=== PATIENT | male | born 1955 | race Caucasian/White ===

== ENCOUNTER 2017-02-14 07:13 | Day surgery (SDC) | payer MEDICARE, MEDICAID ==
[2017-02-14 07:52] LABS: HEMOGLOBIN 14.3 g/dL (14.1-18.0); LYMPH # 1.3 K/mm3 (0.7-4.5); LYMPH % 19.2 % (10-50)
[2017-02-14 07:59] LABS: BUN 24 mg/dL (7-18); GFR (ESTIMATED) 75 ML/MIN (>60)
--- NOTE | 2017-02-14 14:35 | RADIOLOGY REPORT PS360 ---
CARDIAC CATHETERIZATION DATE OF CATHETERIZATION:02/14/2017 2:25 PM PROCEDURES: 1. Left heart catheterization 2. Left ventriculogram 3. Selective coronary angiogram 4. FFR to the LAD 5. Drug-eluting stent deployment to the LAD INDICATION FOR TEST: 1. Angina pectoris class III 2. Coronary artery disease 3. Ischemic response to adenosine FFR 0.79 4. Abnormal Myoview Informed consent was obtained prior to the procedure. COMPLICATIONS: None ESTIMATED BLOOD LOSS: Less than 10 ml. TECHNIQUE: One percent lidocaine used to anesthetize the right anterior aspect of the wrist. The right radial artery was accessed via the Seldinger technique. A 6 Sinhala sheath was placed in the right radial artery. 2.5 mg of verapamil, 800 mcg of nitroglycerin and 5000 U Heparin were given through the arterial sheath. A [employer] catheter was used to perform left heart catheterization left ventriculogram and selective coronary angiogram. At the end of the diagnostic angiogram and additional 5000 units of heparin was administered intravenously. An [employer] left guide catheter was placed in the ascending aorta and an FFR wire was normalized. The first ACT was greater than 400. The FFR wire was placed distal to the mid LAD lesion and adenosine was infused which caused the FFR index dropped to 0.79. Because this was an ischemic response to adenosine a 3 mm x 12 mm resolute [place] stent was deployed at 18 alejo reducing the severe stenosis to 0%. ROC-3 flow was present before and after the procedure. After achieving excellent angiographic results the apparatus was removed and good hemostasis was achieved using TR band, patient transferred the postop holding area in stable condition ANGIOGRAPHIC RESULTS: 1. The left main artery normal 2. The left anterior descending artery proximally has mild vascular ectasia with 20% atherosclerotic nonflow limiting plaque. The mid segment has a 50-60% stenosis and a large 3.25 mm diameter vessel 3. The circumflex artery is a codominant vessel and has mild luminal irregularities 4. The ramus intermedius is a large 3 to 3 1/2 mm vessel and has a proximal concentric 40% stenosis 5. The right coronary artery is a codominant vessel and has mild diffuse vascular ectasia and mild luminal irregularities 6. The GILL[place]E ventriculogram reveals normal 65% 7. The left ventricular end-diastolic pressure normal 10 mmHg IMPRESSION: 1. Angiographically indeterminate mid LAD disease which produced a severe ischemic response to adenosine 2. Successful stenting of the mid LAD hemodynamically severe disease reduced to 0% with 1 drug-eluting stent 3. Normal ejection fraction 4. Normal left ventricular end-diastolic pressure PLAN: 1. Continue Effient and aspirin 2. LDL less than 55 3. Cardiac rehabilitation 4. Avoidance of tobacco products 5. Risk factor modification
[2017-02-14 15:46] VITALS: BP 150/88
[2017-02-22] MEDS ORDERED: LISINOPRIL 10MG10 MG PO (18:54)
[2017-02-22] MEDS ORDERED: REMERON15 MG PO (18:55)
[2017-02-22] MEDS ORDERED: LOPRESSOR 25MG.25 MG PO (18:55)
[2017-02-22] MEDS ORDERED: ESCITALOPRAM 2020 MG PO (18:56)
[2017-02-22] MEDS ORDERED: ASPIRIN 81MG TA81 MG PO (18:56)
[2017-02-22] MEDS ORDERED: LIPITOR20 MG PO (18:57)
[2017-02-22] MEDS ORDERED: EFFIENT10 M2 PO (18:59)
== END 2017-02-14 15:44 | disposition home or self-care (01) ==
LOC: CATHLAB 07:13
PROVIDERS: Internal Medicine
PROC: 027034Z Dilation of Coronary Artery, One Artery with Drug-eluting Intraluminal Device, Percutaneous Approach (ICD-10-PCS; 2017-02-14)
PROC: B2111ZZ Fluoroscopy of Multiple Coronary Arteries using Low Osmolar Contrast (ICD-10-PCS; 2017-02-14)
PROC: B2151ZZ Fluoroscopy of Left Heart using Low Osmolar Contrast (ICD-10-PCS; 2017-02-14)
PROC: 4A033BC Measurement of Arterial Pressure, Coronary, Percutaneous Approach (ICD-10-PCS; 2017-02-14)
PROC: 4A023N7 Measurement of Cardiac Sampling and Pressure, Left Heart, Percutaneous Approach (ICD-10-PCS; principal; 2017-02-14 08:30)
DX: I25.119 Atherosclerotic heart disease of native coronary artery with unspecified angina pectoris (principal); Z72.0 Tobacco use; R94.39 Abnormal result of other cardiovascular function study; I10 Essential (primary) hypertension; Z95.0 Presence of cardiac pacemaker
CPT/HCPCS: C1725; C1769; C1876; J0153; J1644; Q9967

== ENCOUNTER 2017-03-05 19:44 | Emergency (ER) | payer MEDICARE, MEDICAID ==
[~2017-03-05] VITALS: Ht 175.3 cm; Wt 95.3 kg
[~2017-03-05 19:44] MED LIST: ASPIRIN 81MG TA81 MG PO; EFFIENT10 M2 PO; ESCITALOPRAM 2020 MG PO; LIPITOR20 MG PO; LISINOPRIL 10MG10 MG PO; LOPRESSOR 25MG.25 MG PO; REMERON15 MG PO
[2017-03-05 20:35] LABS: LYMPH # 1.6 K/mm3 (0.7-4.5)
--- NOTE | 2017-03-05 22:34 | Emergency Room Report ---
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 N Clinical Suspician of Infection? N Mental Status: 1 - Regular (Normal Baseline) Sepsis Risk:Low Sepsis Risk Have you (or family members/close friends) recently traveled outside the [place]? N If Yes, where/when: Have you had exposure to infectious disease within the past month? N TB? Other? Specify: Comment The patient is sent from [facility] by ambulance. He states that the reason he initially came in was that he was upset. However he says he was not angry and did not want to hurt himself or others. He says he is on medications for his anxiety as well as his blood pressure. He says he is compliant. He denies any pain and says that he did not have any pain when he came in, although initial history by nurse indicated headache. He denies this now. He says his current main complaint is feeling dizzy, which she says started after he arrived here. His blood pressure is elevated here, he says his blood pressure normally runs a little high, and he has a history of hypertension, but it does not run as high as it is here. He denies chest pain or shortness of breath. He describes his dizziness as "wooziness". He states his anxiety has improved. ALLERGIES Coded Allergies: No Known Allergies (01/28/17) Home Medications Reported Medications LISINOPRIL (Lisinopril) 10 MG PO DAILY Metoprolol Tartrate (Lopressor) 12.5 MG PO BID Mirtazapine (Remeron) 15 MG PO QHS Escitalopram Oxalate (Escitalopram 20MG) 20 MG PO DAILY ASPIRIN (Aspirin) 81 MG PO DAILY Atorvastatin Calcium (Lipitor 20MG) 40 MG PO DAILY Prasugrel HCl (Effient) 10 MG PO DAILY History Medical History General CAD? Yes Angina: Yes RI: No Hypertension? Yes Hyperlipidemia? No CHF? No DVT? No PE? No COPD? No Asthma? No Anemia? No GERD? No Gastric ulcers? No GI Bleed? No Hernia? No Thyroid Problems? No Hypothyroidism? No CVA? No Seizures? No Diabetes? No Renal Insuffiency? No End Stage Renal Disease? No UTI? No Stones? No BPH? No GB Disease: No Nephritic Syndrome? No Hepatitis? No Sickle Cell Disease? No Arthritis? No Migraines? No Cataracts? No Glaucoma? No MRSA? No HIV? No TB? No Anxiety? Yes Depression? No Cancer? No More? Yes Additional hx: ADJUSTMENT DISOERDER Immunization Hx DT/Tetanus Unknown Flu Refused Pneumonia Received In Past Surgical Hx Previous Surgery?Y ABLATION PACEMAKER CARDIAC CATH X1 STENT Family History Family Hx Diabetes No CAD No Hypertension No Hyperlipidemia No Cancer No TB No Social History Smoking Hx Smoker: Former Smoker Tobacco: No Alcohol Alcohol: No Review of Systems All Other Systems Reviewed and Negative Constitutional denies fever Respiratory denies shortness of breath Cardiovascular denies chest pain Gastrointestinal denies abdominal pain, denies vomiting Musculoskeletal denies back pain, denies neck pain Psychiatric/Neurological see HPI, anxiety Physical Exam Vital Signs Vital Signs Date Time Temp Pulse Resp B/P Pulse O2 O2 Flow FiO2 Ox Delivery Rate 03/06 0100 97.5 60 18 147/97 97 03/06 0037 62 18 143/88 98 03/05 2333 60 16 159/110 98 03/05 2251 97.5 63 20 189/113 99 03/058 97.5 62 20 159/107 99 03/05 2023 57 16 170/113 99 03/05 1945 97.6 57 20 152/108 98 General Appearance normal appearance, WD/WN Eye Exam - bilateral eye normal exam, bilateral eye PERRL, bilateral eye EOMI Ear, Nose, Throat hearing grossly normal, normal ENT inspection Neck normal inspection, non-tender, supple, full range of motion Respiratory Status Yes: trachea midline, chest symmetrical, non tender chest. No: respiratory distress. Lung Sounds bilateral: normal breath sounds, lungs clear. 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 Mental status normal mood/affect Skin intact, normal color, warm/dry Medical Decision Making LABS/Meds/Orders Pt receiving controlled substance in ED? No Results/Orders Laboratory Tests 03/05/172009: Creatine Kinase 156, CK-MB (CK-2) Rel Index 0.8, CK and CKMB Interp 1.2, Troponin I < 0.02 03/05/172009: Sodium 133 L, Potassium 4.3, Chloride 104, Carbon Dioxide 32, BUN 22 H, Creatinine 1.1, Estimated Creat Clear 91, Estimated GFR (MDRD) 67, Glucose 93, Calcium 8.9, Total Bilirubin 0.3, AST 21, ALT 46, Alkaline Phosphatase 82, Total Protein 7.1, Albumin 3.4, Globulin 3.7 H, Albumin/Globulin Ratio 0.9 L, WBC 6.0, RBC 4.16 L, Hgb 13.0 L, Hct 40.5 L, MCV 97.3, RDW 12.7, Plt Count 189, MPV 7.6, Gran % 62.8, Gran # 3.7, Lymphocytes % 27.0, Monocytes % 6.0, Eosinophils % 4.2, Basophils % 0.0 L, Lymphocytes # 1.6, Monocytes # 0.4, Eosinophils # 0.3, Basophils # 0.0, PUBS MCHC 32.0, MCH 31.1 Current Medication Orders Sig/Antonio Start time Last Medication Dose Route Stop Time Status Admin Clonidine HCl 0 .STK-MED ONE 03/05 2247 DC .ROUTE Clonidine HCl 0.2 MG ONCE ONE 03/05 2245 DC 03/05 PO 03/05 Sodium Chloride 10 ML PRN PRN 03/05 2000 DCD IV 03/06 1953 Orders Procedure Date/time Status DIET-NOTHING BY MOUTH 03/06 B Active TROPONIN I 03/[address] HEAD W/O CONTRAST 03/05 2247 Active ELECTROCARDIOGRAM REQUEST 03/[address] HEAD REQ 03/05 2240 Complete CARDIAC ENZYMES 03/05 2240 Complete IV SALINE LOCK 03/05 1953 Active CBC WITH AUTO DIFF 03/05 1953 Complete CHEM 12 PROFILE 03/05 1953 Complete 12 LEAD EKG-ANGELA (INITIAL) 03/05 UNK Active CM/EKG CM/EKG Comments EKG interpreted by Mao Lemus MD: Rhythm: Electronic atrial pacemaker Rate: 63 Talent: normal Ectopy: none Conduction: normal ST Segment Changes: none T Wave Changes: none Q Waves: none No evidence of acute ischemia or injury Baseline artifact and wander present, but I consider the EKG adequate for accurate interpretation. XRAY/CT/US XRAY/CT/US CT head Comment CT scan interpreted by [facility] radiologist. Faxed report received and reviewed: Negative Progress - 12:50 AM: Patient states he feels better. Blood pressure is 140s over 90s. I feel he can be discharged. Departure Departure Disposition DC Home or Self Care(routine) Clinical Impression Primary Impression: Dizziness Secondary Impressions: Anxiety state Hypertension Qualifiers: Hypertension type: essential hypertension Qualified Code: I10 - Essential (primary) hypertension Condition STABLE Referrals Daily ROSAS,Gabriel Segal (Family) Patient Instructions DI for Anxiety -- Adult, DI for Dizziness-Nonvertigo, DI for High Blood Pressure Additional Instructions Call your primary care physician tomorrow to arrange follow-up appointment. Return for any worsening. ED Critical Care Critical Care No at 0150
[2017-03-06 01:00] VITALS: BP 147/97
--- NOTE | 2017-03-06 07:34 | RADIOLOGY REPORT PS360 ---
CT HEAD W/O CONTRAST COMPARISON: None HISTORY: Dizziness TECHNIQUE: Multiaxial scans obtained from base skull to the vertex and were performed without IV contrast. FINDINGS: The base of skull appears normal. The mastoids are clear and both internal auditory canals appear normal. Ventricular system is normal. The sylvian fissures are prominent and cortical sulci are mildly prominent especially over the frontal lobes. There is no ischemic infarct or bleed and there are no extra-axial fluid collections. Bony calvarium appears intact. IMPRESSION: Findings of age appropriate cortical atrophy, no acute intracranial pathology noted, agree with the [facility] report
--- OUTSIDE RECORDS SUMMARY | 2017-03-08 17:53 | External Medical Summary Rpt ---
Author Author , ELSY CHIN Address Unknown Phone [email or web address] Care Team Providers Care Certified Medical Aide Name Role Phone RHONDA ELLIS Unavailable Unavailable YOUNGER BALDEMAR, YOUNGER BALDEMAR Unavailable Unavailable [facility] Unavailable Unavailable ASSOC, [facility] BUSLER CAR, BUSLER Unavailable Unavailable CAR [facility] Unavailable Unavailable SPECIALIS, [facility] EUNICE KIMBERLEY, EUNICE Unavailable Unavailable KIMBERLEY YAZ MARYELLEN, YAZ Unavailable Unavailable MARYELLEN YODIT KISHORE, Unavailable Unavailable YODIT KISHORE [facility] Unavailable Unavailable [facility], [facility] Unavailable Unavailable [facility], [facility] KILLIAN ALYSSA, KILLIAN ALYSSA Unavailable Unavailable DUVALL II DENNISE, DUVALL Unavailable Unavailable II DENNISE [facility], Unavailable Unavailable [facility], [facility] Unavailable Unavailable ASSOCIATE, [facility] CARBONIZER STACEY ANTIONE, STACEY Unavailable Unavailable [facility] Unavailable Unavailable [facility], [facility] GONG GRE, GONG Unavailable Unavailable GRE TIMI COR, TIMI [facility] Unavailable Unavailable SKEENS MAIKOL, SKEENS Unavailable Unavailable [facility], Unavailable Unavailable [facility] [place] Unavailable Un[facility], [facility] WOODY II JAM, WOODY Unavailable Unavailable II JAM MEEKS CHARLIE, Unavailable Unavailable MEEKS CHARLIE MEEKS CHARLIE, Unavailable Unavailable MEEKS CHARLIE Purpose Continuity of Care Document - 05-11-2013 through 2016 Problems Code Diagnosis DOS Provider Status I10 ESSENTIAL 12-20-2016 [facility] HYPERT[facility] N 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 Z950 PRESENCE OF 12-20-2016 [facility] PACEMAKER INC 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[facility] 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 M150 PRIMARY 10-04-2016 [facility] GENERALIZED OSTEOARTHRI TIS M2011 HALLUX 09-06-2016 MEEKS VALGUS CHARLIE ACQUIRED RIGHT FOOT M2012 HALLUX 04-10-2016 MEEKS VALGUS CHARLIE ACQUIRED LEFT FOOT M2041 OTHER 04-10-2016 MEEKS HAMMER TOES CHARLIE ACQUIRED RIGHT FOOT M2042 OTHER 04-10-2016 MEEKS HAMMER TOES CHARLIE ACQUIRED LEFT FOOT M2170 UNEQUAL 04-10-2016 MEEKS LIMB LENGTH CHARLIE ACQUIRED UNSPECIFIED SITE K921 MELENA 02-09-2016 [facility] N390 URINARY 02-09-2016 [facility] INFECTION SITE NOT SPECIFIED 03477 PAIN IN 02-17-2015 [facility]INT[facility] 2724 OTHER AND 01-23-2015 [facility] UNSPECIFIED [facility] HYPERLIPIDE HOS CHRISTOPHER 4019 UNSPECIFIED 01-23-2015 [facility] ESSENTIAL [place] HYPERTENSIO REGIONAL N HOS 23983 CORONARY 01-23-2015 [facility] ATHEROSCLER [place] REGIONAL CORONARY HOS ARTERY 04534 CLOSED 01-23-2015 [facility] DISLOCATION [place] OF REGIONAL SHOULDER HOS UNSPECIFIED SITE 51705 CLOSED 01-23-2015 [facility]Y DISLOCATION SERVI OF HUMERUS E8888 OTHER FALL 01-23-2015 [facility] N EMERGENCY SERVI V4501 CARDIAC 01-23-2015 [facility] PACEMAKER [facility] IN SITU REGIONAL HOS V4589 OTHER 01-23-2015 [facility] POSTSURGICA [place] L STATUS REGIONAL OTHER HOS V5866 LONG-TERM 01-23-2015 [facility] USE OF [place] REGIONAL HOS V5869 LONG-TERM 01-23-2015 [facility] (CURRENT) [place] USE OF REGIONAL OTHER HOS MEDICATIONS 4589 UNSPECIFIED 12-27-2014 [facility] HYPOTENSION 35466 OTHER 12-27-2014 [facility] FATIGUE 22764 DEHYDRATION 04-01-2014 [facility] 7962 ELEVATED BP 04-01-2014 [facility] & WITHOUT DX INTER[facility]I HYPERTENSIO N 9222 CONTUSION 06-06-2013 [facility] WALL V6709 FOLLOW-UP 06-06-2013 [facility] EXAMINATION RADIOLOGY FOLLOWING ASSOC OTHER SURGERY 9961 MECH COMP 06-03-2013 [facility] OT RADIOLOGY VASCULAR ASS[place] DEVICE IMPLANT&[place] [address] HEMATOMA 06-03-2013 [facility]IN [facility] PROCEDURE HOS NEC 16329 CHEST PAIN 06-01-2013 CARDIO AND UNSPECIFIED ELECTRO SPECIALIS 14929 ACUT IA 05-31-2013 [facility] SUBENDOCARD [place] IAL INFARCT REGIONAL INIT EPIS HOS CARE 7850 UNSPECIFIED 05-31-2013 [facility] RADI[facility] TACHYCARDIA ASSOC V169 FAMILY 05-31-2013 [facility] HISTORY OF [place] UNSPECIFIED REGIONAL MALIGNANT HOS NEOPLASM V173 FAMILY 05-31-2013 [facility] HISTORY OF [place] ISCHEMIC REGIONAL HEART HOS DISEASE 09190 ACUTE 05-30-2013 [facility] INFARCT SPITALIS UNSPEC SITE INIT EPIS CARE 4011 ESSENTIAL 05-11-2013 [facility] HYPERTENSIO MEDICAL N, BENIGN ASSOCIATE F41.1 GENERALIZED ANXIETY DISORDER F43.20 ADJUSTMENT DISORDER, UNSPECIFIED I10 ESSENTIAL (PRIMARY) HYPERTENSIO N R42 DIZZINESS AND GIDDINESS R94.31 ABNORMAL ELECTROCARD IOGRAM [ECG] [EKG] Results Labs Lab Lab Date Result Refere Interp Status Commen Order Detail nces retati t Range on Drugs identified in Urine by Screen method (02-22-2016 13:38) Comment: er 3 Comment: Supervi 12 - complet sor 016 2016 ed review 13:38 positiv of e results Supervi [id number] complet sor 016 297 ed review 13:38 positiv of e results Supervi [id number] complet sor 016 4 ed review 13:38 POSITIV of E SCT results positiv e Methado [id number] complet ne 016 09 ed cutoff 13:38 NEGATIV [Mass/v E SCT olume] NEGATIV in E Urine for Screen method Barbitu [id number] complet rates 016 09 ed cutoff 13:38 NEGATIV [Mass/v E SCT olume] NEGATIV in E Urine for Screen method Tricycl [id number] complet ic 016 09 ed antidep 13:38 NEGATIV ressant E SCT s NEGATIV tested E for in Urine by Screen method Nominal Benzodi [id number] complet azepine 016 09 ed s 13:38 NEGATIV cutoff E SCT [Mass/v NEGATIV olume] E in Urine for Screen method Phencyc [id number] complet lidine 016 09 ed [Presen 13:38 NEGATIV ce] in E SCT Urine NEGATIV by E Screen method Opiates [id number] complet tested 016 09 ed for in 13:38 NEGATIV Urine E SCT by NEGATIV Screen E method Nominal Methamp [id number] complet hetamin 016 09 ed e 13:38 NEGATIV cutoff E SCT [Mass/v NEGATIV olume] E in Urine for Screen method Tetrahy [id number] complet drocann 016 09 ed abinol 13:38 NEGATIV [Presen E SCT ce] in NEGATIV Urine E by Screen method Cocaine [id number] complet cutoff 016 09 ed 13:38 NEGATIV [Mass/v E SCT olume] NEGATIV in E Urine for Screen method Ampheta [id number] complet mine 016 09 ed cutoff 13:38 NEGATIV [Mass/v E SCT olume] NEGATIV in E Urine for Screen method Urinalysis complete W Reflex Culture panel - Urine (02-22-2016 13:38) Comment: er 3 duvall Comment: Clarity CLEAR complet of 016 EU/DL ed Urine 13:38 Color YELLOW complet of 016 EU/DL ed Urine 13:38 Urobili = 2.0 0.0 TO complet nogen 016 EU/DL 0.2 ed [Mass/v 13:38 olume] in Urine by Test strip Leukocy NEGATIV complet te 016 E ed esteras 13:38 e [Presen ce] in Urine by Test strip Hemoglo NEGATIV complet bin 016 E ed [Presen 13:38 ce] in Urine by Test strip Bilirub 1 + complet in.tota 016 ed l 13:38 [Presen ce] in Urine by Test strip Glucose NEGATIV complet 016 E ed [Presen 13:38 ce] in Urine Nitrite NEGATIV complet 016 E ed [Presen 13:38 ce] in Urine by Test strip Ketones NEGATIV complet 016 E ed [Presen 13:38 ce] in Urine by Test strip Protein NEGATIV complet 016 E ed [Presen 13:38 ce] in Urine by Test strip pH of = 6.0 4.6 TO complet Urine 016 8.0 ed by Test 13:38 strip Specifi = 1.025 1.005 complet c 016 TO ed gravity 13:38 1.030 of Urine Salicylates [Mass/volume] in Blood (02-22-2016 13:15) Comment: er 3 duvall Comment: Salicyl < 1.0 2.0 TO complet ates 016 mg/dL 20.0 ed [Mass/v 13:15 olume] in Blood Folate [Mass/volume] in Serum or Plasma (02-22-2016 13:15) Comment: er 3 duvall Comment: Folate = 9.78 2.76 TO complet [Mass/v 016 ng/mL 20.00 ed olume] 13:15 in Serum or Plasma Cobalamin (Vitamin B12) [Mass or Moles/volume] in Serum (02-22-2016 13:15) Comment: er 3 duvall Comment: Cobalam = 308 239 TO complet in 016 pg/mL 931 ed (Vitami 13:15 n B12) [Mass or Moles/v olume] in Serum Thyrotropin [Mass/volume] in Serum or Plasma (02-22-2016 13:15) Comment: er 3 duvall Comment: Thyrotr = 1.26 0.465 complet opin 016 uIU/mL TO ed [Mass/v 13:15 4.680 olume] in Serum or Plasma Comprehensive metabolic 2000 panel - Serum or Plasma (02-22-2016 13:15) Comment: er 3 duvall Comment: Calcula = 1.2 1.1 TO complet adina and 016 g/dL 2.5 ed 13:15 derived values (set) Anion = 9.1 8.0 TO complet gap in 016 mmol/L 16.0 ed Serum 13:15 or Plasma Alanine = 31 21 TO complet 016 U/L 72 ed aminotr 13:15 ansfera se [Enzyma tic activit y/volum e] in Serum or Plasma Asparta = 16 17 TO complet te 016 U/L 59 ed aminotr 13:15 ansfera se [Enzyma tic activit y/volum e] in Serum or Plasma Calcula = 70 complet adina and 016 mg/dL ed 13:15 derived values (set) Creatin = 1.12 0.66 TO complet ine 016 mg/dL 1.25 ed [Mass/v 13:15 olume] in Blood Carbon = 27 22 TO complet dioxide 016 mmol/L 30 ed , total 13:15 [Moles/ volume] in Blood Chlorid = 106 98 TO complet e 016 mmol/L 107 ed [Moles/ 13:15 volume] in Serum or Plasma Sodium = 3.7 3.4 TO complet and 016 mmol/L 5.0 ed Potassi 13:15 um panel [Moles/ volume] - Serum or Plasma Sodium = 142 137 TO complet and 016 mmol/L 145 ed Potassi 13:15 um panel [Moles/ volume] - Serum or Plasma Alkalin = 75 38 TO complet e 016 U/L 126 ed phospha 13:15 tase [Enzyma tic activit y/volum e] in Serum or Plasma Bilirub = 0.8 0.2 TO complet in 016 mg/dL 1.3 ed direct 13:15 and total panel [Mass/v olume] - Serum or Plasma Albumin = 3.7 3.5 TO complet 016 g/dL 5.0 ed [Mass/v 13:15 olume] in Serum or Plasma Protein = 6.8 6.3 TO complet 016 g/dL 8.2 ed [Mass/v 13:15 olume] in Serum or Plasma Urea = 15 9 TO 20 complet nitroge 016 mg/dL ed n 13:15 [Mass/v olume] in Blood Glucose = 91 74 TO complet 016 mg/dL 106 ed [Mass/v 13:15 olume] in Serum or Plasma Calcium = 8.8 8.4 TO complet 016 mg/dL 10.2 ed [Mass/v 13:15 olume] correct ed for total protein in Serum or Plasma Troponin I.cardiac [Mass/volume] in Serum or Plasma (02-22-2016 13:15) Comment: er 3 duvall Comment: Troponi < 0.012 0 TO complet n 016 ng/ml 0.033 ed I.cardi 13:15 ac [Mass/v olume] in Serum or Plasma Ethanol [Mass/volume] in Blood (02-22-2016 13:15) Comment: er 3 duvall Comment: Ethanol < 10 0 TO 10 complet 016 mg/dL ed [Mass/v 13:15 olume] in Blood Acetaminophen [Mass/volume] in Blood (02-22-2016 13:15) Comment: er 3 duvall Comment: Acetami < 10 10 TO complet nophen 016 ug/mL 30 ed [Mass/v 13:15 olume] in Blood CBC W Reflex Manual Differential panel - Blood (02-22-2016 13:15) Comment: er 3 duvall Comment: CBC W = 10.6 7.1 TO complet Auto 016 fl 10.4 ed Differe 13:15 ntial panel - Blood Erythro = 13.2 11.5 TO complet cyte 016 % 14.5 ed distrib 13:15 ution width [Ratio] by Automat ed count Erythro = 46.2 35.1 TO complet cyte 016 fL 43.9 ed distrib 13:15 ution width [Ratio] by Automat ed count CBC W = 33.3 33 TO complet Auto 016 g/dl 37 ed Differe 13:15 ntial panel - Blood CBC W = 31.5 27 TO complet Auto 016 pg 31 ed Differe 13:15 ntial panel - Blood CBC W = 94.6 80 TO complet Auto 016 fl 94 ed Differe 13:15 ntial panel - Blood Hematoc = 42.3 42 TO complet rit 016 % 52 ed [Volume 13:15 Fractio n] of Blood by Automat ed count Hemoglo = 14.1 14 TO complet bin 016 G/DL 18 ed A/Hemog 13:15 lobin.t otal in Blood Erythro = 4.47 4.70 TO complet cytes 016 10*6UL 6.10 ed [#/volu 13:15 me] in Blood Nucleat = 0.00 0.0 TO complet ed 016 10*3 0.012 ed erythro 13:15 cytes [#/volu me] in Blood by Automat ed count Granulo = 0.02 0.01 TO complet cytes 016 10*3 0.02 ed Immatur 13:15 e [#/volu me] in Blood by Automat ed count Basophi = 0.01 0.0 TO complet ls 016 10*3 0.1 ed [#/volu 13:15 me] in Blood by Automat ed count Eosinop = 0.13 0.0 TO complet hils 016 10*3 0.2 ed [#/volu 13:15 me] in Blood by Automat ed count Monocyt = 0.51 0.3 TO complet es 016 10*3 0.8 ed [#/volu 13:15 me] in Blood by Automat ed count Lymphoc = 1.08 1.3 TO complet ytes 016 10*3 2.9 ed [#/volu 13:15 me] in Blood by Automat ed count Neutrop = 4.95 2.2 TO complet hils 016 10*3 4.8 ed [#/volu 13:15 me] in Blood by Automat ed count Complet = 0.0 % 0 TO complet e blood 016 0.2 ed count 13:15 (hemogr am) panel - Blood by Automat ed count Granulo = 0.3 % 0 TO complet cytes 016 0.5 ed Immatur 13:15 e/100 leukocy tracey in Blood by Automat ed count Basophi = 0.1 % 0.2 TO complet ls/Leuk 016 1.0 ed ocytes 13:15 [Pure number fractio n] in Blood by Automat ed count Eosinop = 1.9 % 0.9 TO complet hils/10 016 2.9 ed 0 13:15 leukocy tracey in Blood Monocyt = 7.6 % 5.5 TO complet es/100 016 11.7 ed leukocy 13:15 tracey in Blood by Automat ed count Lymphoc = 16.1 20.5 TO complet ytes/10 016 % 45.5 ed 0 13:15 leukocy tracey in Blood by Automat ed count Neutrop = 74.0 43 TO complet hils/10 016 % 65 ed 0 13:15 leukocy tracey in Blood by Automat ed count Leukocy = 6.70 4.7 TO complet tracey 016 10*3/UL 10.8 ed [#/volu 13:15 me] in Blood Platele = 207 130 TO complet ts 016 10*3/ul 450 ed [#/volu 13:15 me] in Blood by Automat ed count Comprehensive metabolic 2000 panel - Serum or Plasma (02-09-2016 06:09) Comment: er-tr enedelia Comment: Anion = 13.8 8.0 TO complet gap in 016 mmol/L 16.0 ed Serum 06:09 or Plasma Alanine = 31 21 TO complet 016 U/L 72 ed aminotr 06:09 ansfera se [Enzyma tic activit y/volum e] in Serum or Plasma Asparta = 23 17 TO complet te 016 U/L 59 ed aminotr 06:09 ansfera se [Enzyma tic activit y/volum e] in Serum or Plasma Calcula = 68 complet adina and 016 mg/dL ed 06:09 derived values (set) Creatin = 1.15 0.66 TO complet ine 016 mg/dL 1.25 ed [Mass/v 06:09 olume] in Blood Carbon = 24 22 TO complet dioxide 016 mmol/L 30 ed , total 06:09 [Moles/ volume] in Blood Chlorid = 105 98 TO complet e 016 mmol/L 107 ed [Moles/ 06:09 volume] in Serum or Plasma Sodium = 4.5 3.4 TO complet and 016 mmol/L 5.0 ed Potassi 06:09 um panel [Moles/ volume] - Serum or Plasma Sodium = 143 137 TO complet and 016 mmol/L 145 ed Potassi 06:09 um panel [Moles/ volume] - Serum or Plasma Alkalin = 71 38 TO complet e 016 U/L 126 ed phospha 06:09 tase [Enzyma tic activit y/volum e] in Serum or Plasma Bilirub = 0.8 0.2 TO complet in 016 mg/dL 1.3 ed direct 06:09 and total panel [Mass/v olume] - Serum or Plasma Albumin = 4.4 3.5 TO complet 016 g/dL 5.0 ed [Mass/v 06:09 olume] in Serum or Plasma Protein = 7.9 6.3 TO complet 016 g/dL 8.2 ed [Mass/v 06:09 olume] in Serum or Plasma Urea = 19 9 TO 20 complet nitroge 016 mg/dL ed n 06:09 [Mass/v olume] in Blood Glucose = 98 74 TO complet 016 mg/dL 106 ed [Mass/v 06:09 olume] in Serum or Plasma Calcium = 9.4 8.4 TO complet 016 mg/dL 10.2 ed [Mass/v 06:09 olume] correct ed for total protein in Serum or Plasma Calcula = 1.3 1.1 TO complet adina and 016 g/dL 2.5 ed 06:09 derived values (set) Hemoglobin.gastrointestinal [Presence] in Stool (02-09-2016 06:09) Comment: ercarole mcdaniels Comment: Supervi [id number] complet sor 016 4 ed review 06:09 of results Supervi complet sor 016 ed review 06:09 of results Supervi [id number] POSITIV complet sor 016 4 E ed review 06:09 POSITIV of E SCT results Hemoglo [id number] NEGATIV complet bin.gas 016 4 E ed trointe 06:09 POSITIV stinal E SCT [Presen ce] in Stool Urinalysis complete W Reflex Culture panel - Urine (02-09-2016 06:09) Comment: ercarole mcdaniels Comment: Microsc 0 - 2 2 TO 4 complet opic 016 /lpf ed observa 06:09 tion [Identi fier] in Urine sedimen t by Light microsc opy Comment: C\T\S TO FOLLOW Microsc 5 - 10 0 TO 4 complet opic 016 /HPF ed observa 06:09 tion [Identi fier] in Urine sedimen t by Light microsc opy Clarity HAZY complet of 016 EU/DL ed Urine 06:09 Color YELLOW complet of 016 EU/DL ed Urine 06:09 Urobili = 1.0 0.0 TO complet nogen 016 EU/DL 0.2 ed [Mass/v 06:09 olume] in Urine by Test strip Leukocy TRACE complet te 016 ed esteras 06:09 e [Presen ce] in Urine by Test strip Hemoglo NEGATIV complet bin 016 E ed [Presen 06:09 ce] in Urine by Test strip Bilirub NEGATIV complet in.tota 016 E ed l 06:09 [Presen ce] in Urine by Test strip Specifi >= 1.005 complet c 016 1.030 TO ed gravity 06:09 1.030 of Urine Glucose NEGATIV complet 016 E ed [Presen 06:09 ce] in Urine Nitrite NEGATIV complet 016 E ed [Presen 06:09 ce] in Urine by Test strip Ketones NEGATIV complet 016 E ed [Presen 06:09 ce] in Urine by Test strip Protein TRACE complet 016 ed [Presen 06:09 ce] in Urine by Test strip pH of = 6.0 4.6 TO complet Urine 016 8.0 ed by Test 06:09 strip CBC W Reflex Manual Differential panel - Blood (02-09-2016 06:09) Comment: er-tr enedelia Comment: CBC W = 10.4 7.1 TO complet Auto 016 fl 10.4 ed Differe 06:09 ntial panel - Blood Platele = 208 130 TO complet ts 016 10*3/ul 450 ed [#/volu 06:09 me] in Blood by Automat ed count Erythro = 13.5 11.5 TO complet cyte 016 % 14.5 ed distrib 06:09 ution width [Ratio] by Automat ed count Erythro = 47.4 35.1 TO complet cyte 016 fL 43.9 ed distrib 06:09 ution width [Ratio] by Automat ed count CBC W = 33.7 33 TO complet Auto 016 g/dl 37 ed Differe 06:09 ntial panel - Blood CBC W = 31.9 27 TO complet Auto 016 pg 31 ed Differe 06:09 ntial panel - Blood CBC W = 94.6 80 TO complet Auto 016 fl 94 ed Differe 06:09 ntial panel - Blood Hematoc = 46.9 42 TO complet rit 016 % 52 ed [Volume 06:09 Fractio n] of Blood by Automat ed count Hemoglo = 15.8 14 TO complet bin 016 G/DL 18 ed A/Hemog 06:09 lobin.t otal in Blood Erythro = 4.96 4.70 TO complet cytes 016 10*6UL 6.10 ed [#/volu 06:09 me] in Blood Nucleat = 0.00 0.0 TO complet ed 016 10*3 0.012 ed erythro 06:09 cytes [#/volu me] in Blood by Automat ed count Granulo = 0.04 0.01 TO complet cytes 016 10*3 0.02 ed Immatur 06:09 e [#/volu me] in Blood by Automat ed count Basophi = 0.03 0.0 TO complet ls 016 10*3 0.1 ed [#/volu 06:09 me] in Blood by Automat ed count Eosinop = 0.35 0.0 TO complet hils 016 10*3 0.2 ed [#/volu 06:09 me] in Blood by Automat ed count Monocyt = 0.72 0.3 TO complet es 016 10*3 0.8 ed [#/volu 06:09 me] in Blood by Automat ed count Lymphoc = 2.29 1.3 TO complet ytes 016 10*3 2.9 ed [#/volu 06:09 me] in Blood by Automat ed count Neutrop = 6.06 2.2 TO complet hils 016 10*3 4.8 ed [#/volu 06:09 me] in Blood by Automat ed count Complet = 0.0 % 0 TO complet e blood 016 0.2 ed count 06:09 (hemogr am) panel - Blood by Automat ed count Granulo = 0.4 % 0 TO complet cytes 016 0.5 ed Immatur 06:09 e/100 leukocy tracey in Blood by Automat ed count Basophi = 0.3 % 0.2 TO complet ls/Leuk 016 1.0 ed ocytes 06:09 [Pure number fractio n] in Blood by Automat ed count Eosinop = 3.7 % 0.9 TO complet hils/10 016 2.9 ed 0 06:09 leukocy tracey in Blood Monocyt = 7.6 % 5.5 TO complet es/100 016 11.7 ed leukocy 06:09 tracey in Blood by Automat ed count Lymphoc = 24.1 20.5 TO complet ytes/10 016 % 45.5 ed 0 06:09 leukocy tracey in Blood by Automat ed count Neutrop = 63.9 43 TO complet hils/10 016 % 65 ed 0 06:09 leukocy tracey in Blood by Automat ed count Leukocy = 9.49 4.7 TO complet tracey 016 10*3/UL 10.8 ed [#/volu 06:09 me] in Blood Troponin I.cardiac [Mass/volume] in Serum or Plasma (01-27-2016 08:25) Comment: er tx nfd Comment: Troponi < 0.012 0 TO complet n 016 ng/ml 0.033 ed I.cardi 08:25 ac [Mass/v olume] in Serum or Plasma Comprehensive metabolic 2000 panel - Serum or Plasma (01-27-2016 08:25) Comment: er tx nfd Comment: Calcula = 1.3 1.1 TO complet adina and 016 g/dL 2.5 ed 08:25 derived values (set) Anion = 10.4 8.0 TO complet gap in 016 mmol/L 16.0 ed Serum 08:25 or Plasma Alanine = 16 21 TO complet 016 U/L 72 ed aminotr 08:25 ansfera se [Enzyma tic activit y/volum e] in Serum or Plasma Asparta = 21 17 TO complet te 016 U/L 59 ed aminotr 08:25 ansfera se [Enzyma tic activit y/volum e] in Serum or Plasma Calcula = 75 complet adina and 016 mg/dL ed 08:25 derived values (set) Creatin = 1.06 0.66 TO complet ine 016 mg/dL 1.25 ed [Mass/v 08:25 olume] in Blood Carbon = 30 22 TO complet dioxide 016 mmol/L 30 ed , total 08:25 [Moles/ volume] in Blood Chlorid = 104 98 TO complet e 016 mmol/L 107 ed [Moles/ 08:25 volume] in Serum or Plasma Sodium = 4.3 3.4 TO complet and 016 mmol/L 5.0 ed Potassi 08:25 um panel [Moles/ volume] - Serum or Plasma Sodium = 144 137 TO complet and 016 mmol/L 145 ed Potassi 08:25 um panel [Moles/ volume] - Serum or Plasma Alkalin = 75 38 TO complet e 016 U/L 126 ed phospha 08:25 tase [Enzyma tic activit y/volum e] in Serum or Plasma Bilirub = 0.9 0.2 TO complet in 016 mg/dL 1.3 ed direct 08:25 and total panel [Mass/v olume] - Serum or Plasma Albumin = 4.4 3.5 TO complet 016 g/dL 5.0 ed [Mass/v 08:25 olume] in Serum or Plasma Protein = 7.8 6.3 TO complet 016 g/dL 8.2 ed [Mass/v 08:25 olume] in Serum or Plasma Urea = 16 9 TO 20 complet nitroge 016 mg/dL ed n 08:25 [Mass/v olume] in Blood Glucose = 104 74 TO complet 016 mg/dL 106 ed [Mass/v 08:25 olume] in Serum or Plasma Calcium = 9.4 8.4 TO complet 016 mg/dL 10.2 ed [Mass/v 08:25 olume] correct ed for total protein in Serum or Plasma Ethanol [Mass/volume] in Blood (01-27-2016 08:25) Comment: er tx nfd Comment: Ethanol < 10 0 TO 10 complet 016 mg/dL ed [Mass/v 08:25 olume] in Blood Salicylates [Mass/volume] in Blood (01-27-2016 08:25) Comment: er tx nfd Comment: Salicyl < 1.0 2.0 TO complet ates 016 mg/dL 20.0 ed [Mass/v 08:25 olume] in Blood Acetaminophen [Mass/volume] in Blood (01-27-2016 08:25) Comment: er tx nfd Comment: Acetami < 10 10 TO complet nophen 016 ug/mL 30 ed [Mass/v 08:25 olume] in Blood Urinalysis complete W Reflex Culture panel - Urine (01-27-2016 08:25) Comment: er tx nfd Comment: Microsc 0 - 2 2 TO 4 complet opic 016 /lpf ed observa 08:25 tion [Identi fier] in Urine sedimen t by Light microsc opy Microsc 0 - 2 0 TO 5 complet opic 016 /HPF ed observa 08:25 tion [Identi fier] in Urine sedimen t by Light microsc opy Clarity SL complet of 016 CLOUDY ed Urine 08:25 EU/DL Color YELLOW complet of 016 EU/DL ed Urine 08:25 Urobili = 1.0 0.0 TO complet nogen 016 EU/DL 0.2 ed [Mass/v 08:25 olume] in Urine by Test strip Leukocy NEGATIV complet te 016 E ed esteras 08:25 e [Presen ce] in Urine by Test strip Hemoglo TRACE complet bin 016 ed [Presen 08:25 ce] in Urine by Test strip Bilirub NEGATIV complet in.tota 016 E ed l 08:25 [Presen ce] in Urine by Test strip Glucose NEGATIV complet 016 E ed [Presen 08:25 ce] in Urine Nitrite NEGATIV complet 016 E ed [Presen 08:25 ce] in Urine by Test strip Ketones NEGATIV complet 016 E ed [Presen 08:25 ce] in Urine by Test strip Protein NEGATIV complet 016 E ed [Presen 08:25 ce] in Urine by Test strip pH of = 5.5 4.6 TO complet Urine 016 8.0 ed by Test 08:25 strip Specifi >= 1.005 complet c 016 1.030 TO ed gravity 08:25 1.030 of Urine CBC W Reflex Manual Differential panel - Blood (01-27-2016 08:25) Comment: er tx nfd Comment: CBC W = 10.6 7.1 TO complet Auto 016 fl 10.4 ed Differe 08:25 ntial panel - Blood Platele = 206 130 TO complet ts 016 10*3/ul 450 ed [#/volu 08:25 me] in Blood by Automat ed count Erythro = 13.1 11.5 TO complet cyte 016 % 14.5 ed distrib 08:25 ution width [Ratio] by Automat ed count Erythro = 46.7 35.1 TO complet cyte 016 fL 43.9 ed distrib 08:25 ution width [Ratio] by Automat ed count CBC W = 33.0 33 TO complet Auto 016 g/dl 37 ed Differe 08:25 ntial panel - Blood CBC W = 31.9 27 TO complet Auto 016 pg 31 ed Differe 08:25 ntial panel - Blood CBC W = 96.7 80 TO complet Auto 016 fl 94 ed Differe 08:25 ntial panel - Blood Hematoc = 47.3 42 TO complet rit 016 % 52 ed [Volume 08:25 Fractio n] of Blood by Automat ed count Hemoglo = 15.6 14 TO complet bin 016 G/DL 18 ed A/Hemog 08:25 lobin.t otal in Blood Erythro = 4.89 4.70 TO complet cytes 016 10*6UL 6.10 ed [#/volu 08:25 me] in Blood Nucleat = 0.00 0.0 TO complet ed 016 10*3 0.012 ed erythro 08:25 cytes [#/volu me] in Blood by Automat ed count Granulo = 0.02 0.01 TO complet cytes 016 10*3 0.02 ed Immatur 08:25 e [#/volu me] in Blood by Automat ed count Basophi = 0.01 0.0 TO complet ls 016 10*3 0.1 ed [#/volu 08:25 me] in Blood by Automat ed count Eosinop = 0.11 0.0 TO complet hils 016 10*3 0.2 ed [#/volu 08:25 me] in Blood by Automat ed count Monocyt = 0.58 0.3 TO complet es 016 10*3 0.8 ed [#/volu 08:25 me] in Blood by Automat ed count Lymphoc = 1.40 1.3 TO complet ytes 016 10*3 2.9 ed [#/volu 08:25 me] in Blood by Automat ed count Neutrop = 4.50 2.2 TO complet hils 016 10*3 4.8 ed [#/volu 08:25 me] in Blood by Automat ed count Complet = 0.0 % 0 TO complet e blood 016 0.2 ed count 08:25 (hemogr am) panel - Blood by Automat ed count Granulo = 0.3 % 0 TO complet cytes 016 0.5 ed Immatur 08:25 e/100 leukocy tracey in Blood by Automat ed count Basophi = 0.2 % 0.2 TO complet ls/Leuk 016 1.0 ed ocytes 08:25 [Pure number fractio n] in Blood by Automat ed count Eosinop = 1.7 % 0.9 TO complet hils/10 016 2.9 ed 0 08:25 leukocy tracey in Blood Monocyt = 8.8 % 5.5 TO complet es/100 016 11.7 ed leukocy 08:25 tracey in Blood by Automat ed count Lymphoc = 21.1 20.5 TO complet ytes/10 016 % 45.5 ed 0 08:25 leukocy tracey in Blood by Automat ed count Neutrop = 67.9 43 TO complet hils/10 016 % 65 ed 0 08:25 leukocy tracey in Blood by Automat ed count Leukocy = 6.62 4.7 TO complet tracey 016 10*3/UL 10.8 ed [#/volu 08:25 me] in Blood Drugs identified in Urine by Screen method (01-27-2016 08:25) Comment: er tx nfd Comment: Supervi 12 - 16 complet sor 016 ed review 08:25 positiv of e results Supervi [id number] complet sor 016 293 ed review 08:25 positiv of e results Supervi [id number] complet sor 016 4 ed review 08:25 POSITIV of E SCT results positiv e Methado [id number] complet ne 016 09 ed cutoff 08:25 NEGATIV [Mass/v E SCT olume] NEGATIV in E Urine for Screen method Barbitu [id number] complet rates 016 09 ed cutoff 08:25 NEGATIV [Mass/v E SCT olume] NEGATIV in E Urine for Screen method Tricycl [id number] complet ic 016 09 ed antidep 08:25 NEGATIV ressant E SCT s NEGATIV tested E for in Urine by Screen method Nominal Benzodi [id number] complet azepine 016 09 ed s 08:25 NEGATIV cutoff E SCT [Mass/v NEGATIV olume] E in Urine for Screen method Phencyc [id number] complet lidine 016 09 ed [Presen 08:25 NEGATIV ce] in E SCT Urine NEGATIV by E Screen method Opiates [id number] complet tested 016 09 ed for in 08:25 NEGATIV Urine E SCT by NEGATIV Screen E method Nominal Methamp [id number] complet hetamin ed e 08:25 NEGATIV cutoff E SCT [Mass/v NEGATIV olume] E in Urine for Screen method Tetrahy [id number] complet drocann ed abinol 08:25 NEGATIV [Presen E SCT ce] in NEGATIV Urine E by Screen method Cocaine [id number] complet cutoff 016 09 ed 08:25 NEGATIV [Mass/v E SCT olume] NEGATIV in E Urine for Screen method Ampheta [id number] complet mine 016 09 ed cutoff 08:25 NEGATIV [Mass/v E SCT olume] NEGATIV in E Urine for Screen method Procedures Procedure DOS Code Location Performer Comment ECG 10246 [facility] INC INC W/LEAST 12 LDS TRCG ONLY W/O I&R SBSQ 23847 [facility] 7 FACILITY CARE/DAY E/M STABLE 10 MIN BLOOD 75001 [facility] COUNT 6 HOSP INC [facility] COMPLETE AUTO&AUTO DIFRNTL WBC COMPREHEN 59510 [facility] SIVE 6 HOSP INC [facility]OSP INC METABOLIC PANEL COLLECTIO 56758 [facility] N VENOUS 6 HOSP INC HOSP INC BLOOD VENIPUNCT URE BLOOD 21014 [facility] OCCULT 6 HOSP INC HOSP INC FECAL HGB DETER IA QUAL FECES 1-3 CULTURE 14807 [facility] BACTERIAL 6 HOSP INC HOSP INC QUANTTATI VE COLONY COUNT URINE CULTURE 36341 [facility] TYPING 6 HOSP INC HOSP INC IMMUNOLOG IC OTH/THN IMMUNOFLU ORES URNLS DIP 24041 [facility] 6 HOSP INC HOSP INC STICK/TAB LET REAGENT AUTO MICROSCOP Y CT UPPER 10475 [facility] EXTREMITY 5 [place] W/O RADIOLOGY CONTRAST ASSOC MATERIAL THER 54845 [facility] PROPH/DX 5 [facility] C[facility] NJX IV D D PUSH REGIONAL REGIONAL SINGLE/1S H[place] SBST/[place] [address] [facility] SARAH SHOULDER 5 KASHMIR CAR DISLC EMERGENCY W/MANIPUL SERVI [place]ION [place] [address] [facility] SHOULDER 5 [facility]UM[facility] CUM[facility]AN DISLC D D W/MANIPUL REGIONAL REGIONAL ATION REQ HOS HOS ANES RADEX 99667 [facility] YOUNGER BALDEMAR SHOULDER 5 1 [facility] RADEX 24796 [facility] BALDEMAR SHOULDER 5 COMPLETE RADIOLOGY MINIMUM 2 ASSOC VIEWS CLOSED 7971 [facility] REDUCTION 5 [facility]UM[facility] CUMBERLAN OF D D DISLOCATI REGIONAL [place] [address] [facility] INFUSION 5 HOSP INC HOSP INC HYDRATION INITIAL 31 MIN-1 HOUR COMPREHEN 49073 [facility] SIVE 4 HOSP INC HOSP INC METABOLIC PANEL COLLECTIO 15433 [facility] N VENOUS 4 HOSP INC HOSP INC BLOOD VENIPUNCT URE BLOOD 79977 [facility] COUNT 4 HOSP INC HOSP INC COMPLETE AUTO&AUTO DIFRNTL WBC BLOOD 84980 [facility] COUNT 4 HOSP INC HOSP INC COMPLETE AUTO&AUTO DIFRNTL WBC COLLECTIO 57953 [facility] N VENOUS 4 HOSP INC HOSP INC BLOOD VENIPUNCT URE RADIOLOGI 41510 SK[facility] C 4 IMAGING & MAIKOL EXAMINATI ON CHEST [place] [address] [facility] TROPONIN 4 HOSP INC HOSP INC QUANTITAT KALEB COMPREHEN 22024 [facility] SIVE 4 HOSP INC HOSP INC METABOLIC PANEL CREATINE 36132 [facility] KINASE 4 HOSP INC HOSP INC TOTAL CREATINE 95879 [facility] KINASE MB 4 HOSP INC HOSP INC FRACTION ONLY DUP-SCAN 14682 [facility] IBARRA LXTR 3 ANTOINE ART/ARTL RADIOLOGY BPGS ASSOC UNI/LMTD STUDY DUP-SCAN 91843 [facility] LXTR 3 [facility] ART/ARTL D D BPGS REGIONAL REGIONAL UNI/LMTD HOS HOS STUDY LEFT 3722 [facility] HEART 3 [facility] CUM[facility] CARDIAC D D CATHETERI REGIONAL REGIONAL ZATION HOS HOS CORONARY 8856 [facility] ARTERIOGR 3 [facility] APHY D D USING TWO REGIONAL REGIONAL HOS HOS CATHETERS ANGIOCARD 8853 [facility] IOGRAPHY 3 [place]UM[place] CUMBERLAN OF LEFT D D HEART REGIONAL REGIONAL STRUCTURE HOS HOS S CATH PLMT [address] [facility] & 3 AND [facility] ARTS ELECTRO W/NJX & SPECIALIS ANGIO IMG S&I RADIOLOGI 61088 [facility] 3 EXAMINATI RADIOLOGY ON CHEST ASSOC SINGLE VIEW FRONTAL INITIAL 62201 [facility] 3 AND [facility] CARE/DAY ELECTRO 70 SPECIALIS MINUTES OBSERVATI 02837 [facility] TIMI COR ON/INPATI 3 HOSPITAL- ENT HOSPITALI HOSPITAL S CARE 40 MINUTES CREATINE 07002 [facility] MARGIE CO KINASE 3 HOSP INC HOSP INC TOTAL COMPREHEN 40078 [facility] SIVE 3 [place]P [place] [address] [facility] MARGIE CO INFUSION 3 HOSP INC HOSP INC HYDRATION INITIAL 31 MIN-1 HOUR COLLECTIO 62424 [facility] N VENOUS 3 HOSP INC HOSP INC BLOOD VENIPUNCT URE ECG 12854 [facility] [place] ROUTINE 3 HOSP INC HOSP INC ECG W/LEAST 12 LDS TRCG ONLY W/O I&R CREATINE 07307 [facility] MARGIE CO KINASE MB 3 HOSP INC HOSP INC FRACTION ONLY RADIOLOGI 08171 [facility] C EXAM 3 HOSP INC HOSP INC CHEST 2 VIEWS [place]AL&[place] [address] [facility] TROPONIN 3 HOSP INC HOSP INC QUANTITAT KALEB BLOOD 38741 [facility] COUNT 3 HOSP INC HOSP INC COMPLETE AUTO&AUTO DIFRNTL WBC BLOOD 60291 [facility] COUNT 3 HOSP INC HOSP INC COMPLETE AUTO&AUTO DIFRNTL WBC RADIOLOGI 80926 [facility] C 3 IMAGING & MAIKOL EXAMINATI ON CHEST INTERVENT SINGLE I VIEW FRONTAL COLLECTIO 79508 [facility] N VENOUS 3 HOSP INC [place] [address] [facility] TROPONIN 3 HOSP INC HOSP INC QUANTITAT KALEB ECG 36081 [facility] ROUTINE 3 HOSP INC HOSP INC ECG W/LEAST 12 LDS TRCG ONLY W/O I&R CREATINE 06453 [facility] KINASE MB 3 HOSP INC HOSP INC FRACTION ONLY CREATINE 44637 [facility] KINASE 3 HOSP INC HOSP INC TOTAL COMPREHEN 20840 [facility] SIVE 3 HOSP INC HOSP INC METABOLIC PANEL Encounters Encounter Start End Date Code Location Performer Type Date [facility]OSPITAL [facility] - 7 7 [facility] OUTPATIEN INC T OFFICE 56181 [facility] OUTPATIEN 6 6 CHARLIE CHARLIE T NEW 20 MINUTES CRITICAL [facility] ACCESS 6 6 HOSP [facility] EMERGENCY 24712 EMERGENCY WOOD II 6 6 COVERAGE JAM DEPARTMEN T VISIT CORPORATI HIGH/URGE NT SEVERITY EMERGENCY 05584 [facility] 6 6 HOSP INC DEPARTMEN T VISIT MODERATE SEVERITY [facility] - 5 5 [facility] OUTPATIEN D T [facility] - 5 5 [facility] OUTPATIEN D T [facility] EMERGENCY 07158 [facility] BUSLER 5 5 KASHMIR CAR DEPARTMEN EMERGENCY T VISIT SERVI MODERATE SEVERITY EMERGENCY 96206 [facility] DEPT 5 5 [facility] VISIT D HIGH REGIONAL SEVERITY& HOS THREAT FUNCJ EMERGENCY 32151 EMERGENCY YAZ 5 5 COVERAGE MARYELLEN DEPARTMEN T VISIT CORPORATI HIGH/URGE NT SEVERITY EMERGENCY 43612 [facility] 5 5 HOSP INC DEPARTMEN T VISIT MODERATE SEVERITY CRITICAL [facility] ACCESS 5 5 [facility]P [facility] EMERGENCY 61713 [facility] 4 4 HOSP INC DEPARTMEN T VISIT MODERATE SEVERITY EMERGENCY 64326 EMERGENCY [facility] 4 4 COVERAGE DEPARTMEN T VISIT CORPORATI HIGH/URGE NT SEVERITY CRITICAL [facility] ACCESS 4 4 HOSP [facility] - 3 3 [facility] OUTPATIEN D T [facility]AL HOS EMERGENCY 58772 [facility] 3 3 [facility] DEPARTMEN D T VISIT REGIONAL HIGH/URGE HOS NT SEVERITY EMERGENCY 19396 DAVID SHAH 3 3 MEDICAL DEPARTMEN GROUP, T VISIT PLLC MODERATE SEVERITY EMERGENCY 61975 [facility] GONG 3 3 EMERGENCY GRE DEPARTMEN SERVICES T VISIT HIGH/URGE NT SEVERITY HOSPITAL [facility] - 3 3 [facility] OUTPATIEN D T REG[facility]AL HOS EMERGENCY 32435 [facility] 3 3 [facility] DEPARTMEN D T VISIT REGIONAL LOW/MODER HOS SEVERITY [facility]OSPITAL [facility] - 3 3 [facility] INPATIENT D REGIONAL HOS CRITICAL [facility] ACCESS 3 3 [facility]OSP [facility] EMERGENCY 22726 [facility] DEPT 3 3 HOSP INC VISIT HIGH SEVERITY& THREAT FUNCJ CRITICAL [facility] ACCESS 3 3 HOSP [facility] EMERGENCY 40402 EMERGENCY TIM[facility] COR 3 3 COVERAGE DEPARTMEN T VISIT CORPORATI HIGH/URGE NT SEVERITY OFFICE 37458 PRAKASH DUVALL II OUTPATIEN 3 3 O MEDICAL DENNISE T VISIT 15 ASSOCIATE MINUTES EMERGENCY 94151 [facility] 3 3 HOSP INC DEPARTMEN T VISIT MODERATE SEVERITY
--- OUTSIDE RECORDS SUMMARY | 2017-03-08 17:53 | External Medical Summary Rpt ---
Author Author , ELSY CHIN Address Unknown Phone [email or web address] Care Team Providers Care Supercharge Repair Supervisor Name Role Phone RHONDA ELLIS Unavailable Unavailable YOUNGER BALDEMAR, YOUNGER BALDEMAR Unavailable Unavailable [facility] Unavailable Unavailable ASSOC, [facility] BUSLER CAR, BUSLER Unavailable Unavailable CAR [facility] Unavailable Unavailable SPECIALIS, [facility] SPECIALIS EUNICE KIMBERLEY, EUNICE Unavailable Unavailable KIMBERLEY YAZ MARYELLEN, YAZ Unavailable Unavailable MARYELLEN YODIT KISHORE, Unavailable Unavailable YODIT KISHORE [facility] Unavailable Unavailable INC, [facility] Unavailable Unavailable [facility]AL [facility], [facility] KILLIAN ALYSSA, KILLIAN ALYSSA Unavailable Unavailable DUVALL II DENNISE, DUVALL Unavailable Unavailable II DENNISE [facility], Unavailable Unavailable PLL[facility], [facility] Unavailable Unavailable ASSOCIATE, [employer] [facility] STACEY ANTOINE, STACEY Unavailable Unavailable ANTOINE [facility] Unavailable Unavailable [facility], [facility] GONG GRE, GONG Unavailable Unavailable [facility], [facility] Unavailable Unavailable SKEENS MAIKOL, SKEENS Unavailable Unavailable [facility] Unavailable Unavailable [facility] Un[facility] Un[facility], [facility] WOODY II JAM, WOODY Unavailable Unavailable [...] [facility] [id number] ASHD [facility] [place] 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[facility] 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 [...] CHARLIE ACQUIRED UNSPECIFIED SITE K921 MELENA 02-09-2016 [facility] N390 URINARY 02-09-2016 [facility] TRACT [facility]OSP INC INFECTION SITE NOT SPECIFIED 74771 PAIN IN 02-17-2015 [facility] SHOULDER [facility] REGION HOS 2724 OTHER AND 01-23-2015 [facility] UNSPECIFIED [facility] REGIONAL HYPERLIPIDE HOS CHRISTOPHER 4019 UNSPECIFIED 01-23-2015 [facility] ESSENTIAL [place] HYPERTENSIO REGIONAL N HOS 21153 CORONARY 01-23-2015 [facility] ATHEROSCLER [place] OSIS [facility] [place] REGIONAL CORONARY HOS ARTERY 23670 CLOSED 01-23-2015 [facility] DISLOCATION [place] OF REGIONAL SHOULDER HOS UNSPECIFIED SITE 85299 CLOSED 01-23-2015 [facility] EMERGENCY DISLOCATION SERVI OF HUMERUS E8888 OTHER FALL 01-23-2015 [facility] N [facility] V4501 CARDIAC 01-23-2015 [facility] PACEMAKER [facility] IN SITU REGIONAL HOS V4589 OTHER 01-23-2015 [facility] POSTSURGICA [place] L STATUS REGIONAL OTHER HOS V5866 LONG-TERM 01-23-2015 [facility] USE OF [place] ASPIRIN REGIONAL HOS V5869 LONG-TERM 01-23-2015 [facility] (CURRENT) [place] USE OF REGIONAL OTHER HOS MEDICATIONS 4589 UNSPECIFIED 12-27-2014 [facility] HYPOTENSION 92379 OTHER 12-27-2014 [facility] MALAISE AND HOSP INC FATIGUE 66393 DEHYDRATION 04-01-2014 [facility] 7962 ELEVATED BP 04-01-2014 [facility]ING [facility] & WITHOUT DX [facility] HYPERTENSIO N 9222 CONTUSION 06-06-2013 [facility] WALL V6709 FOLLOW-UP 06-06-2013 [facility] EXAMINATION RADIOLOGY FOLLOWING ASSOC OTHER SURGERY 9961 MECH COMP 06-03-2013 [facility] OT RADIOLOGY VASCULAR ASSOC DEVICE IMPLANT&[place] [address] HEMATOMA 06-03-2013 [facility]ICATIN [facility] G A REGIONAL PROCEDURE HOS NEC 03389 CHEST PAIN 06-01-2013 CARDIO AND UNSPECIFIED ELECTRO SPECIALIS 39979 ACUT SC 05-31-2013 [facility] SUBENDOCARD [place] IAL INFARCT REGIONAL INIT EPIS HOS CARE 7850 UNSPECIFIED 05-31-2013 [facility] TACHYCARDIA ASSOC V169 FAMILY 05-31-2013 [facility] HISTORY OF [place] UNSPECIFIED REGIONAL MALIGNANT HOS NEOPLASM V173 FAMILY 05-31-2013 [place] HISTORY OF [place] ISCHEMIC REGIONAL HEART HOS DISEASE 58697 ACUTE 05-30-2013 [facility] INFARCT SPITALIS UNSPEC SITE INIT EPIS CARE 4011 ESSENTIAL 05-11-2013 [facility] N, BENIGN ASSOCIATE F41.1 GENERALIZED [...] review 13:38 positiv of e results Supervi [id number] complet sor 016 297 ed review 13:38 positiv of e results Supervi [id number] complet sor 016 4 ed review 13:38 POSITIV of E SCT results positiv e Methado [id number] complet ne 016 09 ed cutoff 13:38 NEGATIV [Mass/v E SCT olume] NEGATIV in E Urine for Screen method Barbitu [id number] complet rates 016 09 ed cutoff 13:38 NEGATIV [Mass/v E SCT olume] NEGATIV in E Urine for Screen method Tricycl [id number] complet ic 016 09 ed antidep 13:38 NEGATIV ressant E SCT s NEGATIV tested E for in Urine by Screen method Nominal Benzodi [id number] complet azepine 016 09 ed s 13:38 NEGATIV cutoff E SCT [Mass/v NEGATIV olume] E in Urine for Screen method Phencyc [id number] complet lidine 016 09 ed [Presen 13:38 NEGATIV ce] in E SCT Urine NEGATIV by E Screen method Opiates [id number] complet tested 016 09 ed for in 13:38 NEGATIV Urine E SCT by NEGATIV Screen E method Nominal Methamp [id number] complet hetamin 016 09 ed e 13:38 NEGATIV cutoff E SCT [Mass/v NEGATIV olume] E in Urine for Screen method Tetrahy [id number] complet drocann 016 09 ed abinol 13:38 NEGATIV [Presen E SCT ce] in NEGATIV Urine E by Screen method Cocaine [id number] complet cutoff 016 09 ed 13:38 NEGATIV [Mass/v E SCT olume] NEGATIV in E Urine for Screen method Ampheta [id number] complet mine 016 09 ed cutoff 13:38 [...] (02-09-2016 06:09) Comment: ercarole mcdaniels Comment: Supervi [id number] complet sor 016 4 ed review 06:09 of results Supervi complet sor 016 ed review 06:09 of results Supervi [id number] POSITIV complet sor 016 4 E ed review 06:09 POSITIV of E SCT results Hemoglo [id number] NEGATIV complet bin.gas 016 4 E ed [...] review 08:25 positiv of e results Supervi [id number] complet sor 016 293 ed review 08:25 positiv of e results Supervi [id number] complet sor 016 4 ed review 08:25 POSITIV of E SCT results positiv e Methado [id number] complet ne 016 09 ed cutoff 08:25 NEGATIV [Mass/v E SCT olume] NEGATIV in E Urine for Screen method Barbitu [id number] complet rates 016 09 ed cutoff 08:25 NEGATIV [Mass/v E SCT olume] NEGATIV in E Urine for Screen method Tricycl [id number] complet ic 016 09 ed antidep 08:25 NEGATIV ressant E SCT s NEGATIV tested E for in Urine by Screen method Nominal Benzodi [id number] complet azepine 016 09 ed s 08:25 NEGATIV cutoff E SCT [Mass/v NEGATIV olume] E in Urine for Screen method Phencyc [id number] complet lidine 016 09 ed [Presen 08:25 NEGATIV ce] in E SCT Urine NEGATIV by E Screen method Opiates [id number] complet tested 016 09 ed for in 08:25 NEGATIV Urine E SCT by NEGATIV Screen E method Nominal Methamp [id number] complet hetamin ed e 08:25 NEGATIV cutoff E SCT [Mass/v NEGATIV olume] E in Urine for Screen method Tetrahy [id number] complet drocann ed abinol 08:25 NEGATIV [Presen E SCT ce] in NEGATIV Urine E by Screen method Cocaine [id number] complet cutoff 016 09 ed 08:25 NEGATIV [Mass/v E SCT olume] NEGATIV in E Urine for Screen method Ampheta [id number] complet mine 016 09 ed cutoff 08:25 NEGATIV [Mass/v E SCT olume] NEGATIV in E Urine for Screen method Procedures Procedure DOS Code Location Performer Comment ECG 96325 [facility] ROUTINE 7 [facility] ECG INC INC W/LEAST 12 LDS TRCG ONLY W/O I&R SBSQ 31078 [facility] 7 FACILITY CARE/DAY E/M STABLE 10 MIN BLOOD 67283 [facility] COUNT 6 HOSP INC HOSP INC COMPLETE AUTO&AUTO DIFRNTL WBC COMPREHEN 58852 [facility] SIVE 6 HOSP INC HOSP INC METABOLIC PANEL COLLECTIO 88888 [facility] N VENOUS 6 HOSP INC HOSP INC BLOOD VENIPUNCT URE BLOOD 23728 [facility] OCCULT 6 HOSP INC HOSP INC FECAL HGB DETER IA QUAL FECES 1-3 CULTURE 27083 [facility] BACTERIAL 6 HOSP INC HOSP INC QUANTTATI VE COLONY COUNT URINE CULTURE 36259 [facility] TYPING 6 HOSP INC HOSP INC IMMUNOLOG IC OTH/THN IMMUNOFLU ORES URNLS DIP 33040 [facility] 6 HOSP INC HOSP INC STICK/TAB LET REAGENT AUTO MICROSCOP Y CT UPPER 84293 [facility] EUNICE EXTREMITY 5 KIMBERLEY W/O RADIOLOGY CONTRAST ASSOC MATERIAL THER 39981 [facility] PROPH/DX 5 [place] NJX IV D D PUSH REGIONAL REGIONAL SINGLE/1S H[place] H[place] T SBST/[place] [address] [facility] SARAH SHOULDER 5 KASHMIR CAR DISLC EMERGENCY W/MANIPUL SERVI [place]ION [place] [address] [facility] SHOULDER 5 [place] DISLC D D W/MANIPUL REGIONAL REGIONAL ATION REQ HOS HOS ANES RADEX 14046 LEIA YOUNGER BALDEMAR SHOULDER 5 1 [facility] RADEX 10683 LEIA YOUNGER BALDEMAR SHOULDER 5 COMPLETE RADIOLOGY MINIMUM 2 ASSOC VIEWS CLOSED 7971 [facility] REDUCTION 5 [place]UM[place] CUMBER[place] OF D D DISLOCATI REGIONAL [place] [address] [facility] INFUSION 5 HOSP INC HOSP INC HYDRATION INITIAL 31 MIN-1 HOUR COMPREHEN 14554 [facility] SIVE 4 HOSP INC HOSP INC METABOLIC PANEL COLLECTIO 73453 [facility] N VENOUS 4 HOSP INC HOSP INC BLOOD VENIPUNCT URE BLOOD 42112 [facility] COUNT 4 HOSP INC HOSP INC COMPLETE AUTO&AUTO DIFRNTL WBC BLOOD 49304 [facility] COUNT 4 HOSP INC HOSP INC COMPLETE AUTO&AUTO DIFRNTL WBC COLLECTIO 10606 [facility] N VENOUS 4 HOSP INC HOSP INC BLOOD VENIPUNCT URE RADIOLOGI 67295 SKDEXS C 4 IMAGING & MAIKOL EXAMINATI ON CHEST INTER[place] [address] [facility] TROPONIN 4 HOSP INC HOSP INC QUANTITAT KALEB COMPREHEN 39863 [facility] SIVE 4 HOSP INC HOSP INC METABOLIC PANEL CREATINE 94655 [facility] KINASE 4 HOSP INC HOSP INC TOTAL CREATINE 21599 [facility] KINASE MB 4 HOSP INC HOSP INC FRACTION ONLY DUP-SCAN 60436 [facility] IBARRA LXTR 3 ANTOINE ART/ARTL RADIOLOGY BPGS ASSOC UNI/LMTD STUDY DUP-SCAN 26251 [facility] LXTR 3 [place] ART/ARTL D D BPGS REGIONAL REGIONAL UNI/LMTD HOS HOS STUDY LEFT 3722 [facility] HEART 3 [place] CARDIAC D D CATHETERI REGIONAL REGIONAL ZATION HOS HOS CORONARY 8856 [facility] ARTERIOGR 3 [facility] APHY D D USING TWO REGIONAL REGIONAL HOS HOS CATHETERS ANGIOCARD 8853 [facility] IOGRAPHY 3 CUM[place] CUMBERLAN OF LEFT D D HEART REGIONAL REGIONAL STR[place]CTURE [place] C[place] PLMT [address] [facility] HRT & 3 [facility] ARTS ELECTRO W/NJX & SPECIALIS ANGIO IMG S&I RADIOLOGI 57710 [facility] 3 EXAMINATI RADIOLOGY ON CHEST ASSOC SINGLE VIEW FRONTAL INITIAL 80042 [facility] 3 [facility] CARE/DAY ELECTRO 70 SPECIALIS MINUTES OBSERVATI 91744 [facility] TIMI COR ON/INPATI 3 HOSPITAL- ENT HOSPITALI HOSPITAL S CARE 40 MINUTES CREATINE 46887 [facility] MRAGIE CO KINASE 3 HOSP INC HOSP INC TOTAL COMPREHEN 89931 [facility] SIVE 3 HOSP [place] [address] [facility] MARGIE CO INFUSION 3 HOSP INC HOSP INC HYDRATION INITIAL 31 MIN-1 HOUR COLLECTIO 58281 [facility] N VENOUS 3 HOSP INC HOSP INC BLOOD VENIPUNCT URE ECG 51815 [facility] ROUTINE 3 HOSP INC HOSP INC ECG W/LEAST 12 LDS TRCG ONLY W/O I&R CREATINE 73537 [facility] MARGIE CO KINASE MB 3 HOSP INC HOSP INC FRACTION ONLY RADIOLOGI 33425 [facility] C EXAM 3 HOSP INC HOSP INC CHEST 2 VIEWS [place]ONTAL&[place] [address] [facility] TROPONIN 3 HOSP INC HOSP INC QUANTITAT KALEB BLOOD 60977 [facility] COUNT 3 HOSP INC HOSP INC COMPLETE AUTO&AUTO DIFRNTL WBC BLOOD 77373 [facility] COUNT 3 HOSP INC HOSP INC COMPLETE AUTO&AUTO DIFRNTL WBC RADIOLOGI 46547 [facility] SKEENS C 3 IMAGING & MAIKOL EXAMINATI ON CHEST INTERVENT SINGLE I VIEW FRONTAL COLLECTIO 99462 [facility] N VENOUS 3 HOSP INC H[place] [address] [facility] TROPONIN 3 HOSP INC HOSP INC QUANTITAT KALEB ECG 09082 [facility] ROUTINE 3 HOSP INC HOSP INC ECG W/LEAST 12 LDS TRCG ONLY W/O I&R CREATINE 20731 [facility] KINASE MB 3 HOSP INC HOSP INC FRACTION ONLY CREATINE 02253 [facility] KINASE 3 HOSP INC HOSP INC TOTAL COMPREHEN 88704 [facility] SIVE 3 HOSP INC HOSP INC METABOLIC PANEL Encounters Encounter Start End Date Code Location Performer Type Date HOSPITAL LONG - 7 7 MEM [facility] OUTPATIEN INC T OFFICE 60168 MEEKS MEEKS OUTPATIEN 6 6 CHARLIE CHARLIE T NEW 20 MINUTES CRITICAL [facility] ACCESS 6 6 HOSP [facility] HOSPITAL EMERGENCY 59657 EMERGENCY WOOD II 6 6 COVERAGE JAM DEPARTMEN T VISIT CORPORATI HIGH/URGE NT SEVERITY EMERGENCY 94848 [facility] 6 6 HOSP INC DEPARTMEN T VISIT MODERATE SEVERITY HOSPITAL [facility] - 5 5 [place] OUTPATIEN D T REGIONAL HOS [facility] - 5 5 [place] OUTPATIEN D T REGIONAL HOS EMERGENCY 73017 [facility] BUSLER 5 5 KASHMIR CAR DEPARTMEN EMERGENCY T VISIT SERVI MODERATE SEVERITY EMERGENCY 71677 [facility] DEPT 5 5 [place] VISIT D HIGH REGIONAL SEVERITY& HOS THREAT FUNCJ EMERGENCY 57836 EMERGENCY YAZ 5 5 COVERAGE MARYELLEN DEPARTMEN T VISIT CORPORATI HIGH/URGE NT SEVERITY EMERGENCY 01057 [facility] 5 5 HOSP INC DEPARTMEN T VISIT MODERATE SEVERITY CRITICAL [facility] ACCESS 5 5 HOSP [facility] HOSPITAL EMERGENCY 58411 [facility] 4 4 HOSP INC DEPARTMEN T VISIT MODERATE SEVERITY EMERGENCY 78012 EMERGENCY [facility] 4 4 COVERAGE DEPARTMEN T VISIT CORPORATI HIGH/URGE NT SEVERITY CRITICAL [facility] ACCESS 4 4 HOSP [facility] - 3 3 [place] OUTPATIEN D T REGIONAL HOS EMERGENCY 67680 [facility] 3 3 [place] DEPARTMEN D T VISIT REGIONAL HIGH/URGE HOS NT SEVERITY EMERGENCY 23228 DAVID SHAH 3 3 MEDICAL DEPARTMEN GROUP, T VISIT PLLC MODERATE SEVERITY EMERGENCY 37953 [facility] GONG 3 3 EMERGENCY GRE DEPARTMEN SERVICES T VISIT HIGH/URGE NT SEVERITY HOSPITAL [facility] - 3 3 [place] OUTPATIEN D T REGIONAL HOS EMERGENCY 34321 [facility] 3 3 [place] DEPARTMEN D T VISIT REGIONAL LOW/MODER HOS SEVERITY HOSPITAL [facility] - 3 3 [place] INPATIENT D REGIONAL HOS CRITICAL [facility] ACCESS 3 3 HOSP [facility] HOSPITAL EMERGENCY 21003 [facility] DEPT 3 3 HOSP INC VISIT HIGH SEVERITY& THREAT FUNCJ CRITICAL [facility] ACCESS 3 3 HOSP [facility] HOSPITAL EMERGENCY 06273 EMERGENCY TIMI COR 3 3 COVERAGE DEPARTMEN T VISIT CORPORATI HIGH/URGE NT SEVERITY OFFICE 35700 PRAKASH DUVALL II OUTPATIEN 3 3 O MEDICAL DENNISE T VISIT 15 ASSOCIATE MINUTES EMERGENCY 49618 [facility] 3 3 HOSP INC DEPARTMEN T VISIT MODERATE SEVERITY
--- OUTSIDE RECORDS SUMMARY | 2017-03-08 17:54 | External Medical Summary Rpt ---
Author Author , ELSY CHIN Address Unknown Phone [email or web address] Care Team Providers Care Film Developer Name Role Phone RHONDA ELLIS Unavailable Unavailable YOUNGER BALDEMAR, YOUNGER BALDEMAR Unavailable Unavailable [facility] Unavailable Unavailable [facility], [facility] BUSLER CAR, BUSLER Unavailable Unavailable [facility] Unavailable Unavailable SPECIALIS, [facility] SPECIAL[facility] EUNICE KIMBERLEY, EUNICE Unavailable Unavailable KIMBERLEY YAZ MARYELLEN, YAZ Unavailable Unavailable MARYELLEN YODIT KISHORE, Unavailable Unavailable YODIT KISHORE [facility] Unavailable Unavailable [facility], [facility] Unavailable Unavailable [facility], [facility] KILLIAN ALYSSA, KILLIAN ALYSSA Unavailable Unavailable DUVALL II DENNISE, DUVALL Unavailable Unavailable II DENNISE [facility], Unavailable Unavailable PLL[facility], [facility] Unavailable Unavailable ASSOCIATE, [facility] STACEY ANTOINE, STACEY Unavailable Unavailable ANTO[facility] Unavailable Unavailable [facility], [facility] RAMOS KIMBERLEY, RAMOS Unavailable Unavailable KIMBERLEY GONG [facility], GONG Unavailable Unavailable [facility] Un[facility] Un[facility], Unavailable Unavailable [facility] Unavailable Unavailable [facility]PITAL[facility]ITALIS, [facility] WOODY II JAM, WOODY Unavailable Unavailable II JAM CONSTANTINO CHARLIE, Unavailable Unavailable MEEKSSAUNDRA MEEKS CHARLIE, Unavailable Unavailable MEEKSDARLENE GUERRA Purpose Continuity of Care Document - 05-11-2013 through 2016 Problems Code Diagnosis DOS Provider Status I10 ESSENTIAL 12-20-2016 [facility] HYPERT[facility] N 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 Z950 PRESENCE OF 12-20-2016 [facility] PACEMAKER INC 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 M150 PRIMARY 10-04-2016 [facility] GENERALIZED OSTEOARTHRI TIS M2011 HALLUX 04-10-2016 MEEKS VALGUS CHARLIE ACQUIRED RIGHT FOOT M2012 HALLUX 04-10-2016 MEEKS VALGUS CHARLIE ACQUIRED LEFT FOOT M2041 OTHER 04-10-2016 MEEKS HAMMER TOES CHARLIE ACQUIRED RIGHT FOOT M2042 OTHER 04-10-2016 MEEKS HAMMER TOES CHARLIE ACQUIRED LEFT FOOT M2170 UNEQUAL 04-10-2016 MEEKS LIMB LENGTH CHARLIE ACQUIRED UNSPECIFIED SITE K921 MELENA 02-09-2016 [facility] N390 URINARY 02-09-2016 [facility] TRACT HOSP INC INFECTION SITE NOT SPECIFIED 37134 PAIN IN 02-17-2015 [facility] JOINT, [facility] 2724 OTHER AND 01-23-2015 [facility] UNSPECIFIED [facility] HYPERLIPIDE [facility] CHRISTOPHER 4019 UNSPECIFIED 01-23-2015 [facility] ESSENTIAL [facility] HYPERTENSIO REGIONAL N HOS 17774 CORONARY 01-23-2015 [facility] ATHEROSCLER [facility] OSIS LUMMI REGIONAL CORONARY HOS ARTERY 95658 CLOSED 01-23-2015 [facility] DISLOCATION [place] OF REGIONAL SHOULDER HOS UNSPECIFIED SITE 94407 CLOSED 01-23-2015 [facility] DISLOCATION SERVI OF HUMERUS E8888 OTHER FALL 01-23-2015 [facility] SERVI V4501 CARDIAC 01-23-2015 [facility] PACEMAKER [facility] IN SITU REGIONAL HOS V4589 OTHER 01-23-2015 [facility] POSTSURGICA [facility] L STATUS REGIONAL OTHER HOS V5866 LONG-TERM 01-23-2015 [facility] USE OF [facility] ASPIRIN REGIONAL HOS V5869 LONG-TERM 01-23-2015 [facility] (CURRENT) [facility] USE OF REGIONAL OTHER HOS MEDICATIONS 4589 UNSPECIFIED 12-27-2014 [facility] HYPOTENSION 24076 OTHER 12-27-2014 [facility] MALAISE AND HOSP INC FATIGUE 26454 DEHYDRATION 04-01-2014 [facility] 7962 ELEVATED BP 04-01-2014 [facility] & WITHOUT DX [facility] HYPERTENSIO N 9222 CONTUSION 06-06-2013 [facility] WALL V6709 FOLLOW-UP 06-06-2013 [facility] EXAMINATION RADIOLOGY FOLLOWING ASSOC OTHER SURGERY 9961 [facility] COMP 06-03-2013 [facility] OT RADIOLOGY VASCULAR ASS[place] DEVICE IMPLANT&[place] [address] HEMATOMA 06-03-2013 [facility] COMPLICATIN [place] G A REGIONAL PROCEDURE HOS NEC 74464 CHEST PAIN 06-01-2013 CARDIO AND UNSPECIFIED ELECTRO SPECIALIS 80793 ACUT TX 05-31-2013 [facility] SUBENDOCARD [facility] IAL INFARCT REGIONAL INIT EPIS HOS CARE 7850 UNSPECIFIED 05-31-2013 [facility] TACHYCARDIA ASSOC V169 FAMILY 05-31-2013 [facility] HISTORY OF [facility] UNSPECIFIED REGIONAL MALIGNANT HOS NEOPLASM V173 FAMILY 05-31-2013 [facility] HISTORY OF [facility] ISCHEMIC REGIONAL HEART HOS DISEASE 79625 ACUTE 05-30-2013 [facility] INFARCT SPITALIS UNSPEC SITE INIT EPIS CARE 4011 ESSENTIAL 05-11-2013 [facility], BENIGN ASSOCIATE Procedures Procedure DOS Code Location Performer Comment ECG 69639 [facility] ROUTINE 7 [facility] ECG INC INC W/LEAST 12 LDS TRCG ONLY W/O I&R SBSQ 72077 [facility] CARE/DAY E/M STABLE 10 MIN BLOOD 64355 [facility] OCCULT 6 HOSP INC HOSP INC FECAL HGB DETER IA QUAL FECES 1-3 URNLS DIP 16626 [facility] 6 HOSP INC HOSP INC STICK/TAB LET REAGENT AUTO MICROSCOP Y BLOOD 69845 [facility] COUNT 6 HOSP INC HOSP INC COMPLETE AUTO&AUTO DIFRNTL WBC COLLECTIO 93532 [facility] N VENOUS 6 HOSP [facility] HOSP INC BLOOD VENIPUNCT URE COMPREHEN 31768 [facility] SIVE 6 HOSP [facility] HOSP INC METABOLIC PANEL CULTURE 61254 [facility] BACTERIAL 6 HOSP INC HOSP INC QUANTTATI VE COLONY COUNT URINE CULTURE 23628 [facility] TYPING 6 HOSP INC HOSP INC IMMUNOLOG IC OTH/THN IMMUNOFLU ORES CT UPPER 55173 [facility] EXTREMITY 5 [place] W/O D D CONTRAST REGIONAL [place] [address] [facility] SHOULDER 5 [place] DISLC D D W/MANIPUL REGIONAL REGIONAL ATION REQ HOS HOS ANES RADEX 03161 [facility] SHOULDER 5 [place] 1 VIEW D D REGIONAL REGIONAL HOS HOS RADEX 61297 [facility] SHOULDER 5 [place] COMPLETE D D MINIMUM 2 REGIONAL REGIONAL VIEWS HOS HOS THER 57222 [facility] PROPH/DX 5 [place] NJX IV D D PUSH REGIONAL REGIONAL SINGLE/1S H[place] H[place] T SBST/[place] [address] [facility] BUSLER SHOULDER 5 KASHMIR CAR DISLC EMERGENCY W/MANIPUL SERVI ATION W/O ANES CLOSED 7971 [facility] REDUCTION 5 [place] OF D D DISLOCATI REGIONAL [place] [address] [facility] INFUSION 5 HOSP INC HOSP INC HYDRATION INITIAL 31 MIN-1 HOUR COMPREHEN 59296 [facility] SIVE 4 HOSP INC HOSP INC METABOLIC PANEL COLLECTIO 55019 [facility] N VENOUS 4 HOSP INC HOSP INC BLOOD VENIPUNCT URE BLOOD 65439 [facility] COUNT 4 HOSP INC HOSP INC COMPLETE AUTO&AUTO DIFRNTL WBC BLOOD 03128 [facility] COUNT 4 HOSP INC HOSP INC COMPLETE AUTO&AUTO DIFRNTL WBC CREATINE 60478 [facility] KINASE MB 4 H[place]P [place] [address] [facility] TROPONIN 4 HOSP INC HOSP INC QUANTITAT KALEB COLLECTIO 95485 [facility] N VENOUS 4 HOSP INC HOSP INC BLOOD VENIPUNCT URE COMPREHEN 79908 [facility] SIVE 4 HOSP INC HOSP INC METABOLIC PANEL RADIOLOGI 54991 [facility] C 4 HOSP INC HOSP INC EXAMINATI ON CHEST SINGLE VIEW FRONTAL CREATINE 40909 [facility] KINASE 4 HOSP INC HOSP INC TOTAL DUP-SCAN 83898 [facility]IA STACEY LXTR 3 ANTOINE ART/ARTL RADIOLOGY [facility]GS ASSOC UNI/LMTD STUDY DUP-SCAN 56407 LEIA EUNICE LXTR 3 KIMBERLEY ART/ARTL RADIOLOGY BPGS ASSOC UNI/LMTD STUDY CATH PLMT 47567 CARDIO YODIT L HRT & 3 AND KISHORE ARTS ELECTRO W/NJX & SPECIALIS ANGIO IMG S&I LEFT 3722 [facility] HEART 3 [place] CARDIAC D D CATHETERI REGIONAL REGIONAL ZATION HOS HOS CORONARY 8856 [facility] ARTERIOGR 3 [place] APHY D D USING TWO REGIONAL REGIONAL HOS HOS CATHETERS ANGIOCARD 8853 [facility] IOGRAPHY 3 [place] OF LEFT D D HEART REGIONAL REGIONAL STRUCTURE HOS HOS S INITIAL 17966 [facility] 3 AND KISHORE CARE/DAY ELECTRO 70 SPECIALIS MINUTES RADIOLOGI 06800 [facility] 3 EXAMINATI RADIOLOGY ON CHEST ASSOC SINGLE VIEW FRONTAL OBSERVATI 56108 [facility] TIMI COR ON/INPATI [facility] S CARE [address] [place] [address] [facility] INFUSION 3 HOSP INC HOSP INC HYDRATION INITIAL 31 MIN-1 HOUR COMPREHEN 84932 [facility] SIVE 3 HOSP INC HOSP INC METABOLIC PANEL RADIOLOGI 52112 [facility] EXAM 3 IMAGING & KIMBERLEY CHEST 2 VIEWS INTERVENT FRONTAL&L I ATERAL BLOOD 72182 [facility] COUNT 3 HOSP INC HOSP INC COMPLETE AUTO&[place] [address] [facility] TROPONIN 3 HOSP INC HOSP INC QUANTITAT KALEB COLLECTIO 04404 [facility] N VENOUS 3 HOSP INC HOSP INC BLOOD VENIPUNCT URE CREATINE 34334 [facility] KINASE MB 3 HOSP INC HOSP INC FRACTION ONLY ECG 58364 [facility] ROUTINE 3 HOSP INC HOSP INC ECG W/LEAST 12 LDS TRCG ONLY W/O I&R CREATINE 01246 [facility] KINASE 3 HOSP INC HOSP INC TOTAL CREATINE 43644 [facility] KINASE 3 HOSP INC HOSP INC TOTAL ECG 45343 [facility] ROUTINE 3 HOSP INC HOSP INC ECG W/LEAST 12 LDS TRCG ONLY W/O I&R CREATINE 55117 [facility] KINASE MB 3 HOSP INC HOSP INC FRACTION ONLY COLLECTIO 52007 [facility] N VENOUS 3 HOSP INC [place] [address] [facility] TROPONIN 3 HOSP INC HOSP INC QUANTITAT KALEB BLOOD 71205 [facility] COUNT 3 HOSP INC HOSP INC COMPLETE AUTO&AUTO DIFRNTL WBC COMPREHEN 20027 [facility] SIVE 3 HOSP INC HOSP INC METABOLIC PANEL RADIOLOGI 20092 [facility] C 3 HOSP INC HOSP INC EXAMINATI ON CHEST SINGLE VIEW FRONTAL Encounters Encounter Start End Date Code Location Performer Type Date [facility] - 7 7 [facility] T NEW 20 MINUTES EMERGENCY 72811 [facility] 6 6 HOSP [facility] DEPARTMEN T VISIT MODERATE SEVERITY EMERGENCY 22056 EMERGENCY ROULETTE II 6 6 [facility]OVERAGE JAM DEPARTMEN T VISIT CORPORATI HIGH/URGE NT SEVERITY CRITICAL [facility] ACCESS 6 6 [facility] - 5 5 [place] OUTPATIEN D T REGIONAL HOS [facility]GENCY 70347 [facility] [place] VISIT D HIGH REGIONAL SEVERITY& HOS THREAT [facility] PIERSON - 5 5 [place] OUTPATIEN D T REGIONAL HOS EMERGENCY 50761 [facility] 5 5 [facility]ASHM[facility] CAR DEPARTMEN EMERGENCY T VISIT SERVI MODERATE SEVERITY EMERGENCY 22131 EMERGENCY YAZ 5 5 COVERAGE MARYELLEN DEPARTMEN T VISIT CORPORATI HIGH/URGE NT SEVERITY CRITICAL [facility] ACCESS 5 5 HOSP [facility] HOSPITAL EMERGENCY 60750 [facility] 5 5 HOSP INC DEPARTMEN T VISIT MODERATE SEVERITY EMERGENCY 33194 [facility] 4 4 HOSP INC DEPARTMEN T VISIT MODERATE SEVERITY EMERGENCY 94049 EMERGENCY [facility] 4 4 COVERAGE DEPARTMEN T VISIT CORPORATI HIGH/URGE NT SEVERITY CRITICAL [facility] ACCESS 4 4 HOSP [facility] - 3 3 [place] OUTPATIEN D T REGIONAL HOS EMERGENCY 81220 [facility] 3 3 [place] DEPARTMEN D T VISIT REGIONAL HIGH/URGE HOS NT SEVERITY EMERGENCY 08062 DAVID SHAH 3 3 MEDICAL DEPARTMEN GROUP, T VISIT PLLC MODERATE SEVERITY EMERGENCY 66189 [facility] 3 3 EMERGENCY [facility] DEPARTMEN SERVICES T VISIT HIGH/URGE NT SEVERITY HOSPITAL [facility] - 3 3 [place] OUTPATIEN D T REGIONAL HOS EMERGENCY 83817 [facility] 3 3 [place] DEPARTMEN D T VISIT REGIONAL LOW/MODER HOS SEVERITY [facility] EMERGENCY 65517 [place] [facility] 3 3 HOSP INC VISIT HIGH SEVERITY& THREAT FUNCJ CRITICAL [place] [facility] 3 3 [facility] H[facility]PITAL CRITICAL [facility] ACCESS 3 3 HOSP [facility] HOSPITAL EMERGENCY 92711 EMERGENCY [facility] 3 3 COVERAGE DEPARTMEN T VISIT CORPORATI HIGH/URGE NT SEVERITY OFFICE 99306 PRAKASH DUVALL II OUTPATIEN 3 3 O MEDICAL DENNISE T VISIT 15 ASSOCIATE MINUTES EMERGENCY 88664 [facility] 3 3 HOSP [facility] DEPARTMEN T VISIT MODERATE SEVERITY
--- OUTSIDE RECORDS SUMMARY | 2017-03-08 17:54 | External Medical Summary Rpt ---
Author Author , ELSY CHIN Address Unknown Phone [email or web address] Care Team Providers Care Bread Packer Name Role Phone RHONDA ELLIS Unavailable Unavailable YOUNGER BALDEMAR, YOUNGER BALDEMAR Unavailable Unavailable [facility] Unavailable Unavailable [facility]OC, [facility] BUSLER CAR, BUSLER Unavailable Unavailable CAR [facility] Unavailable Unavailable SPECIALIS, [facility] SPECIAL[facility] EUNICE KIMBERLEY, EUNICE Unavailable Unavailable KIMBERLEY YAZ MARYELLEN, YAZ Unavailable Unavailable MARYELLEN YODIT KISHORE, Unavailable Unavailable YODIT KISHORE [facility] Unavailable Unavailable [facility], [facility] Unavailable Unavailable REGIONAL HOS, [facility] KILLIAN ALYSSA, KILLIAN ALYSSA Unavailable Unavailable DUVALL II DENNISE, DUVALL Unavailable Unavailable II DENNISE [facility], Unavailable Unavailable PLL[facility], [facility] Unavailable Unavailable ASSOCIATE, [facility] [employer] FITTER STACEY ANTOINE, STACEY Unavailable Unavailable ANTO[facility] & Unavailable Unavailable [facility], [facility] RAMOS KIMBERLEY, RAMOS Unavailable Unavailable KIMBERLEY GONG [facility], GONG Unavailable Unavailable [facility], [facility] Unavailable Un[facility], [facility]available Unavailable [facility] Unavailable Unavailable HOSPITAL[facility]HOSPITALIS, [facility]ITAL[facility] WOODY II JAM, WOODY Unavailable [...] [facility] [id number] [facility] [place] 10-04-2016 ARNOLD 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 [...] CHARLIE ACQUIRED UNSPECIFIED SITE K921 MELENA 02-09-2016 [facility] N390 URINARY 02-09-2016 [facility] TRACT HOSP INC INFECTION SITE NOT SPECIFIED 10546 PAIN IN 02-17-2015 [facility] 2724 OTHER AND 01-23-2015 [facility] UNSPECIFIED [facility] HYPERLIPIDE [facility]OS CHRISTOPHER 4019 UNSPECIFIED 01-23-2015 [facility] ESSENTIAL [facility] HYPERTENSIO REGIONAL N HOS 53345 CORONARY 01-23-2015 [facility] ATHEROSCLER [facility] [place] REG[facility]AL CORONARY HOS ARTERY 05554 CLOSED 01-23-2015 [facility] DISLOCATION [place] OF REGIONAL SHOULDER HOS UNSPECIFIED SITE 64521 CLOSED 01-23-2015 [facility] DISLOCATION SERVI OF HUMERUS E8888 OTHER FALL 01-23-2015 [facility]Y SERV[facility] V4501 CARDIAC 01-23-2015 [facility] PACEMAKER [facility] IN SITU REGIONAL HOS V4589 OTHER 01-23-2015 [facility] POSTSURGICA [facility] L STATUS REGIONAL OTHER HOS V5866 LONG-TERM 01-23-2015 [facility] USE OF [facility] [place]IN REGIONAL HOS V5869 LONG-TERM 01-23-2015 [facility] (CURRENT) [facility] USE OF REGIONAL OTHER HOS MEDICATIONS 4589 UNSPECIFIED 12-27-2014 [facility] HYPOTENSION 98809 OTHER 12-27-2014 [facility] MALAISE AND HOSP INC FATIGUE 52447 DEHYDRATION 04-01-2014 [facility] 7962 ELEVATED BP 04-01-2014 [facility] & WITHOUT DX [facility] HYPERTENSIO N 9222 CONTUSION 06-06-2013 [facility] WALL V6709 FOLLOW-UP 06-06-2013 [facility] EXAMINATION RADIOLOGY FOLLOWING ASSOC OTHER SURGERY 9961 [facility] COMP 06-03-2013 [facility] OT RADIOLOGY VASCULAR ASS[place] DEVICE IMPLANT&[place] [address] HEMATOMA 06-03-2013 [facility]IN [facility] PROCEDURE HOS NEC 65531 CHEST PAIN 06-01-2013 CARDIO AND UNSPECIFIED ELECTRO SPECIALIS 43380 ACUT DE 05-31-2013 [facility] SUBENDOCARD [facility] IAL INFARCT REGIONAL INIT EPIS HOS CARE 7850 UNSPECIFIED 05-31-2013 [facility] TACHYCARDIA ASSOC V169 FAMILY 05-31-2013 [facility] HISTORY OF [facility] UNSPECIFIED REGIONAL MALIGNANT HOS NEOPLASM V173 FAMILY 05-31-2013 [facility] HISTORY OF [facility] ISCHEMIC REGIONAL HEART HOS DISEASE 37091 ACUTE 05-30-2013 [facility] INFARCT SPITALIS UNSPEC SITE INIT EPIS CARE 4011 ESSENTIAL 05-11-2013 [facility] N, BENIGN ASSOCIATE Procedures Procedure DOS Code Location Performer Comment ECG 71456 LONG [facility] ROUTINE 7 [facility] ECG INC INC W/LEAST 12 LDS TRCG ONLY W/O I&R SBSQ 76163 [facility] FACILITY CARE/DAY E/M STABLE 10 MIN BLOOD 96278 [facility] OCCULT 6 HOSP INC HOSP INC FECAL HGB DETER IA QUAL FECES 1-3 URNLS DIP 23937 [facility] 6 HOSP INC HOSP INC STICK/TAB LET REAGENT AUTO MICROSCOP Y BLOOD 86483 [facility] COUNT 6 HOSP INC HOSP INC COMPLETE AUTO&AUTO DIFRNTL WBC COLLECTIO 13286 [facility] N VENOUS 6 HOSP [facility] HOSP INC BLOOD VENIPUNCT URE COMPREHEN 54800 [facility] SIVE 6 HOSP [facility] HOSP INC METABOLIC PANEL CULTURE 93351 [facility] BACTERIAL 6 HOSP INC HOSP INC QUANTTATI VE COLONY COUNT URINE CULTURE 63396 [facility] TYPING 6 HOSP INC HOSP INC IMMUNOLOG IC OTH/THN IMMUNOFLU ORES CT UPPER 16949 [facility] EXTREMITY 5 [place] [facility] W/O D D CONTRAST REGIONAL [place] [address] [facility] SHOULDER 5 [place] DISLC D D W/MANIPUL REGIONAL REGIONAL ATION REQ HOS HOS ANES RADEX 99571 [facility] SHOULDER 5 [place] 1 VIEW D D REGIONAL REGIONAL HOS HOS RADEX 39947 [facility] SHOULDER 5 [place] COMPLETE D D MINIMUM 2 REGIONAL REGIONAL VIEWS HOS HOS THER 79506 [facility] PROPH/DX 5 [place] NJX IV D D PUSH REGIONAL REGIONAL SINGLE/1S HOS HOS T SBST/[place] [address] [facility] BUSLER SHOULDER 5 KASHMIR CAR DISLC EMERGENCY W/MANIPUL SERVI ATION W/O ANES CLOSED 7971 [facility] REDUCTION 5 [place]UM[place]UM[place] OF D D DISLOCATI REGIONAL [place] [address] [facility] INFUSION 5 HOSP INC HOSP INC HYDRATION INITIAL 31 MIN-1 HOUR COMPREHEN 43836 [facility] SIVE 4 HOSP INC HOSP INC METABOLIC PANEL COLLECTIO 94007 [facility] N VENOUS 4 HOSP INC HOSP INC BLOOD VENIPUNCT URE BLOOD 77123 [facility] COUNT 4 HOSP INC HOSP INC COMPLETE AUTO&AUTO DIFRNTL WBC BLOOD 21443 [facility] COUNT 4 HOSP INC HOSP INC COMPLETE AUTO&AUTO DIFRNTL WBC CREATINE 47426 [facility] KINASE MB 4 H[place]P [place] [address] [facility] TROPONIN 4 HOSP INC HOSP INC QUANTITAT KALEB COLLECTIO 56965 [facility] N VENOUS 4 HOSP INC HOSP INC BLOOD VENIPUNCT URE COMPREHEN 49372 [facility] SIVE 4 HOSP INC HOSP INC METABOLIC PANEL RADIOLOGI 27763 [facility] C 4 HOSP INC HOSP INC EXAMINATI ON CHEST SINGLE VIEW FRONTAL CREATINE 37128 [facility] KINASE 4 HOSP INC HOSP INC TOTAL DUP-SCAN 64190 LEIA STACEY LXTR 3 ANTIONE ART/ARTL RADIOLOGY BPGS ASSOC UNI/LMTD STUDY DUP-SCAN 10511 [facility] EUNICE LXTR 3 KIMBERLEY ART/ARTL RADIOLOGY BPGS ASSOC UNI/LMTD STUDY CATH PLMT 99484 CARDIO YODIT L HRT & 3 AND KISHORE ARTS ELECTRO W/NJX & SPECIALIS ANGIO IMG S&I LEFT 3722 [facility] HEART 3 [place] CARDIAC D D CATHETERI REGIONAL REGIONAL ZATION HOS HOS CORONARY 8856 [facility] ARTERIOGR 3 [place] APHY D D USING TWO REGIONAL REGIONAL HOS HOS CATHETERS ANGIOCARD 8853 [facility] IOGRAPHY 3 [place] OF LEFT D D HEART REGIONAL REGIONAL STRUCTURE HOS HOS S INITIAL 50625 [facility] 3 AND KISHORE CARE/DAY ELECTRO 70 SPECIALIS MINUTES RADIOLOGI 16241 [facility] 3 EXAMINATI RADIOLOGY ON CHEST ASSOC SINGLE VIEW FRONTAL OBSERVATI 20240 [facility] TIMI COR ON/INPATI [facility] S CARE [address] [place] [address] [facility] INFUSION 3 HOSP INC HOSP INC HYDRATION INITIAL 31 MIN-1 HOUR COMPREHEN 62940 [facility] SIVE 3 HOSP INC HOSP INC METABOLIC PANEL RADIOLOGI [address] [facility] EXAM 3 IMAGING & KIMBERLEY CHEST 2 VIEWS INTERVENT FRONTAL&L I ATERAL BLOOD 83860 [facility] COUNT 3 HOSP INC HOSP INC COMPLETE AUTO&[place] [address] [facility] TROPONIN 3 HOSP INC HOSP INC QUANTITAT KALEB COLLECTIO 59104 [facility] N VENOUS 3 HOSP INC HOSP INC BLOOD VENIPUNCT URE CREATINE 38766 [facility] KINASE MB 3 HOSP INC HOSP INC FRACTION ONLY ECG 71795 [facility] ROUTINE 3 HOSP INC HOSP INC ECG W/LEAST 12 LDS TRCG ONLY W/O I&R CREATINE 38936 [facility] KINASE 3 HOSP INC HOSP INC TOTAL CREATINE 54413 [facility] KINASE 3 HOSP INC HOSP INC TOTAL ECG 97389 [facility] ROUTINE 3 HOSP INC HOSP INC ECG W/LEAST 12 LDS TRCG ONLY W/O I&R CREATINE 56369 [facility] KINASE MB 3 HOSP INC HOSP INC FRACTION ONLY COLLECTIO 32861 [facility] N VENOUS 3 HOSP INC [place] [address] [facility] TROPONIN 3 HOSP INC HOSP INC QUANTITAT KALEB BLOOD 01041 [facility] COUNT 3 HOSP INC HOSP INC COMPLETE AUTO&AUTO DIFRNTL WBC COMPREHEN 67225 [facility] SIVE 3 HOSP INC HOSP INC METABOLIC PANEL RADIOLOGI 36085 [facility] C 3 HOSP INC HOSP INC EXAMINATI ON CHEST SINGLE VIEW FRONTAL Encounters Encounter Start End Date Code Location Performer Type Date [facility] LONG - 7 7 [facility]PATIEN [facility] 6 [facility] T NEW 20 MINUTES EMERGENCY 32160 [facility] 6 6 HOSP [facility] DEPARTMEN T VISIT MODERATE SEVERITY EMERGENCY 59838 EMERGENCY KEVIN II 6 6 [facility] JAM DEPARTMEN T VISIT CORPORATI HIGH/URGE NT SEVERITY CRITICAL [facility] ACCESS 6 6 [facility] - 5 5 [place] OUTPATIEN D T REGIONAL HOS EMERGENCY 40708 [facility] [place] VISIT D HIGH REGIONAL SEVERITY& HOS THREAT [facility] PIERSON - 5 5 [place] OUTPATIEN D T REGIONAL HOS EMERGENCY 29000 [facility] 5 5 KASHMIR CAR DEPARTMEN EMERGENCY T VISIT SERVI MODERATE SEVERITY EMERGENCY 99709 EMERGENCY YAZ 5 5 [facility]OVER[facility] MARYELLEN DEPARTMEN T VISIT CORPORATI HIGH/URGE NT SEVERITY CRITICAL [facility] ACCESS 5 5 HOSP [facility] HOSPITAL EMERGENCY 61254 [facility] 5 5 HOSP INC DEPARTMEN T VISIT MODERATE SEVERITY EMERGENCY 74601 [facility] 4 4 HOSP INC DEPARTMEN T VISIT MODERATE SEVERITY EMERGENCY 46804 EMERGENCY [facility] 4 4 COVERAGE DEPARTMEN T VISIT CORPORATI HIGH/URGE NT SEVERITY CRITICAL [facility] ACCESS 4 4 HOSP [facility] - 3 3 [place] OUTPATIEN D T REGIONAL HOS EMERGENCY 48325 [facility] 3 3 [place] DEPARTMEN D T VISIT REGIONAL HIGH/URGE HOS NT SEVERITY EMERGENCY 69018 DAVID SHAH 3 3 MEDICAL DEPARTMEN GROUP, T VISIT PLLC MODERATE SEVERITY EMERGENCY 23177 [facility] GONG 3 3 EMERGENCY [facility] DEPARTMEN SERVICES T VISIT HIGH/URGE NT SEVERITY HOSPITAL [facility] - 3 3 [place] OUTPATIEN D T REGIONAL HOS EMERGENCY 84849 [place] 3 3 [place] DEPARTMEN D T VISIT REGIONAL LOW/MODER HOS SEVERITY [facility] [place] [facility] 3 [facility] EMERGENCY 65660 [place] DEPT 3 3 HOSP INC VISIT HIGH SEVERITY& THREAT FUNCJ CRITICAL [place] ACCESS 3 3 HOSP [facility] HOSPITAL CRITICAL [place] ACCESS 3 3 HOSP [facility] HOSPITAL EMERGENCY 54472 EMERGENCY [facility] 3 3 COVERAGE DEPARTMEN T VISIT CORPORATI HIGH/URGE NT SEVERITY OFFICE 60612 PRAKASH DUVALL II OUTPATIEN 3 3 O MEDICAL DENNISE T VISIT 15 ASSOCIATE MINUTES EMERGENCY 86754 [facility] 3 3 HOSP [facility] DEPARTMEN T VISIT MODERATE SEVERITY
--- OUTSIDE RECORDS SUMMARY | 2017-03-08 17:55 | External Medical Summary Rpt ---
Author Author ELSY Lunsford, [employer] Organization [employer] Address Unknown Phone Unavailable Results Comprehensive metabolic 2000 panel in Serum or Plasma Observa Value Referen Units Interpr Notes Date tion ce etation Range Albumin/G 1.1 - 1.8 No Low No Mar 05 lobulin informati informati 2017 8:10 [Mass on in on in PM ratio] in source source Serum or data data Plasma Albumin 3.4 - 5.0 gm/dL Normal No Mar 05 [Mass/vol informati 2017 8:10 ume] in on in PM Serum or source Plasma data Alkaline 46 - 116 U/L Normal No Mar 05 phosphata informati 2017 8:10 se on in PM [Enzymati source c data activity/ volume] in Serum or Plasma Bilirubin 0.2 - 1.0 mg/dL Normal No Mar 05 .total informati 2017 8:10 [Mass/vol on in PM ume] in source Serum or data Plasma Urea 7 - 18 mg/dL High No Mar 05 nitrogen informati 2017 8:10 [Mass/vol on in PM ume] in source Serum or data Plasma Calcium 8.5 - mg/dL Normal No Mar 05 [Mass/vol 10.1 informati 2017 8:10 ume] in on in PM Serum or source Plasma data Chloride 98 - 107 mmoL/L Normal No Mar 05 [Moles/vo informati 2017 8:10 lume] in on in PM Serum or source Plasma data Carbon 21.0 - mmoL/L Normal No Mar 05 dioxide, 32.0 informati 2017 8:10 total on in PM [Moles/vo source lume] in data Serum or Plasma Creatinin 0.70 - mg/dL Normal No Mar 05 e 1.30 informati 2017 8:10 [Mass/vol on in PM ume] in source Serum or data Plasma Creatinin 50 - 200 ML/MIN Normal No Mar 05 e renal informati 2017 8:10 clearance on in PM source predicted data by Cockcroft -Gault formula Estimated >60 ML/MIN No REFERENCE Mar 05 informati RANGE: 2017 8:10 glomerula on in >60 PM r source ML/MIN/1. filtratio data 73 SQUARE n rate METERSIf (GF this patient is -A merican, then multiply theresult by 1.210. Globulin 1.3 - 3.2 gm/dL High No Mar 05 [Mass/vol informati 2016 8:10 ume] in on in PM Serum source data Glucose 74 - 106 mg/dL Normal No Mar 05 [Mass/vol informati 2016 8:10 ume] in on in PM Serum or source Plasma data Potassium 3.5 - 5.1 mmoL/L Normal No Mar 05 informati 2016 8:10 [Moles/vo on in PM lume] in source Serum or data Plasma Sodium 136 - 145 mmoL/L Low No Mar 05 [Moles/vo ati 2016 8:10 lume] in on in PM Serum or source Plasma data Aspartate 15 - 37 U/L Normal No Mar 05 informati 2016 8:10 aminotran on in PM sferase source [Enzymati data c activity/ volume] in Serum or Plasma Alanine 12 - 78 U/L Normal Mar 05 aminotran informati 2016 8:10 sferase on in PM [Enzymati source c data activity/ volume] in Serum or Plasma Protein 6.4 - 8.2 gm/dL Normal Mar 05 [Mass/vol informati 2016 8:10 ume] in on in PM Serum or source Plasma data CBC W Auto Differential panel in Blood Observa Value Referen Units Interpr Notes Date tion ce etation Range Basophils 0 - 0.2 K/MM3 Normal No Mar 05 inform2016 8:10 [#/volume on in PM ] in source Blood by data Automated count Basophils 0.1 - 2.0 % Low No Mar 05 informati 2016 8:10 leukocyte on in PM s in source Blood by data Automated count Eosinophi 0.0 - 0.4 K/mm3 Normal Mar 05 ls informati 2016 8:10 [#/volume on in PM ] in source Blood by data Automated count Eosinophi 0.1 - % Normal No Mar 05 ls/100 12.0 informati 2016 8:10 leukocyte on in PM s in source Blood by data Automated count Granulocy 1.3 - 8.0 K/mm3 Normal No Mar 05 tracey informati 2016 8:10 [#/volume on in PM ] in source Blood by data Automated count Granulocy 37.0 - % Normal No Mar 05 tracey/100 80.0 informati 2016 8:10 leukocyte on in PM s in source Blood by data Automated count Hematocri 42.0 - % Low No Mar 05 t [Volume 52.0 informati 2016 8:10 on in PM Fraction] source of Blood data Hemoglobi 14.1 - g/dL Low No Mar 05 n 18.0 informati 2016 8:10 [Mass/vol on in PM ume] in source Blood data Lymphocyt 0.7 - 4.5 K/mm3 Normal No Mar 05 es informati 2016 8:10 [#/volume on in PM ] in source Unspecifi data ed specimen by Automated count Lymphocyt 10 - 50 % Normal No Mar 05 es informati 2016 8:10 [#/volume on in PM ] in source Unspecifi data ed specimen by Automated count Erythrocy 27 - 31.2 pg Normal No Mar 05 te mean inform2016 8:10 corpuscul on in PM ar source hemoglobi data n [Entitic mass] Erythrocy 31.8 - g/dl Normal No Mar 05 te mean 35.4 informati 2016 8:10 corpuscul on in PM ar source hemoglobi data n concentra tion [Mass/vol ume] by Automated count Erythrocy 82.2 - fl Normal No Mar 05 te mean 97.8 informati 2016 8:10 corpuscul on in PM ar volume source [Entitic data volume] by Automated count Monocytes 0.1 - 1.0 K/mm3 Normal No Mar 05 informati 2016 8:10 [#/volume on in PM ] in source Blood by data Automated count Monocytes 1.7 - 9.3 % Normal No Mar 05 informati 2016 8:10 leukocyte on in PM s in source Blood by data Automated count Platelet 7.4 - fl Normal No Mar 05 mean 10.4 informati 2016 8:10 volume on in PM [Entitic source volume] data in Blood by Automated count Platelets 142 - 424 K/mm3 Normal No Mar 05 informati 2016 8:10 [#/volume on in PM ] in source Blood data Erythrocy 4.6 - 6.2 M/mm3 Low No Mar 05 tracey informati 2016 8:10 [#/volume on in PM ] in source Amniotic data fluid Erythrocy 11.5 - % Normal No Mar 05 te 17.5 informati 2016 8:10 distribut on in PM ion width source [Entitic data volume] by Automated count Leukocyte 4.8 - K/MM3 Normal No Mar 05 s 10.8 informati 2016 8:10 [#/volume on in PM ] in source Blood data CBC W Auto Differential panel in Blood Observa Value Referen Units Interpr Notes Date tion ce etation Range Granulocy 1.3 - 8.0 K/mm3 Normal No Feb 22 tracey informati 2016 6:48 [#/volume on in PM ] in source Blood by data Automated count Granulocy 37.0 - % Normal No Feb 22 tracey/100 80.0 informati 2017 6:48 leukocyte on in PM s in source Blood by data Automated count Hematocri 42.0 - % Low No Feb 22 t [Volume 52.0 informati 2016 6:48 on in PM Fraction] source of Blood data Hemoglobi 14.1 - g/dL Low No Feb 22 n 18.0 informati 2016 6:48 [Mass/vol on in PM ume] in source Blood data Lymphocyt 0.7 - 4.5 K/mm3 Normal No Feb 22 es informati 2017 6:48 [#/volume on in PM ] in source Unspecifi data ed specimen by Automated count Lymphocyt 10 - 50 % Normal No Feb 22 es informati 2017 6:48 [#/volume on in PM ] in source Unspecifi data ed specimen by Automated count Erythrocy 27 - 31.2 pg High No Feb 22 te mean informati 2016 6:48 corpuscul on in PM ar source hemoglobi data n [Entitic mass] Erythrocy 31.8 - g/dl Normal No Feb 22 te mean 35.4 informati 2017 6:48 corpuscul on in PM ar source hemoglobi data n concentra tion [Mass/vol ume] by Automated count Erythrocy 82.2 - fL Normal No Feb 22 te mean 97.8 informati 2016 6:48 corpuscul on in PM ar volume source [Entitic data volume] by Automated count Monocytes 0.1 - 1.0 K/mm3 Normal No Feb 22 informati 2016 6:48 [#/volume on in PM ] in source Blood by data Automated count Monocytes 1.7 - 9.3 % Normal No Stan 21 /100 informati 2017 6:48 leukocyte on in PM s in source Blood by data Automated count Platelets 142 - 424 K/mm3 Normal No Feb 22 informati 2017 6:48 [#/volume on in PM ] in source Blood data Erythrocy 4.6 - 6.2 M/mm3 Low No Feb 22 tracey informati 2016 6:48 [#/volume on in PM ] in source Amniotic data fluid Erythrocy 11.5 - % Normal No Feb 22 te 17.5 informati 2017 6:48 distribut on in PM ion width source [Entitic data volume] by Automated count Leukocyte 4.8 - K/mm3 Normal No Feb 22 s 10.8 informati 2016 6:48 [#/volume on in PM ] in source Blood data Basic metabolic panel in Blood Observa Value Referen Units Interpr Notes Date tion ce etation Range Urea 7 - 18 mg/dL High No Feb 14 nitrogen informati 2016 7:45 [Mass/vol on in AM ume] in source Serum or data Plasma Calcium 8.5 - mg/dL Normal No Feb 14 [Mass/vol 10.1 informati 2016 7:45 ume] in on in AM Serum or source Plasma data Chloride 98 - 107 mmoL/L High No Feb 14 [Moles/vo informati 2016 7:45 lume] in on in AM Serum or source Plasma data Carbon 21.0 - mmoL/L Normal No Feb 14 dioxide, 32.0 informati 2016 7:45 total on in AM [Moles/vo source lume] in data Serum or Plasma Creatinin 0.70 - mg/dL Normal No Feb 14 e 1.30 informati 2016 7:45 [Mass/vol on in AM ume] in source Serum or data Plasma Estimated >60 ML/MIN No REFERENCE Feb 14 informati RANGE: 2017 7:45 glomerula on in >60 AM r source ML/MIN/1. filtratio data 73 SQUARE n rate METERSIf (GF this patient is -A merican, then multiply theresult by 1.210. Glucose 74 - 106 mg/dL Normal No Feb 14 [Mass/vol informati 2016 7:45 ume] in on in AM Serum or source Plasma data Potassium 3.5 - 5.1 mmoL/L Normal No Feb 14 informati 2016 7:45 [Moles/vo on in AM lume] in source Serum or data Plasma Sodium 136 - 145 mmoL/L Normal No Feb 14 [Moles/vo informati 2016 7:45 lume] in on in AM Serum or source Plasma data CBC W Auto Differential panel in Blood Observa Value Referen Units Interpr Notes Date tion ce etation Range Basophils 0 - 0.2 K/MM3 Normal No Feb 14 informati 2016 7:45 [#/volume on in AM ] in source Blood by data Automated count Basophils 0.1 - 2.0 % Normal No Feb 14 / informati 2016 7:45 leukocyte on in AM s in source Blood by data Automated count Eosinophi 0.0 - 0.4 K/mm3 Normal No Feb 14 ls informati 2016 7:45 [#/volume on in AM ] in source Blood by data Automated count Eosinophi 0.1 - % Normal No Feb 14 ls/100 12.0 informati 2016 7:45 leukocyte on in AM s in source Blood by data Automated count Granulocy 1.3 - 8.0 K/mm3 Normal No Feb 14 tracey informati 2016 7:45 [#/volume on in AM ] in source Blood by data Automated count Granulocy 37.0 - % Normal No Feb 14 tracey/100 80.0 informati 2016 7:45 leukocyte on in AM s in source Blood by data Automated count Hematocri 42.0 - % Normal No Feb 14 t [Volume 52.0 informati 2016 7:45 on in AM Fraction] source of Blood data Hemoglobi 14.1 - g/dL Normal No Feb 14 n 18.0 informati 2016 7:45 [Mass/vol on in AM ume] in source Blood data Lymphocyt 0.7 - 4.5 K/mm3 Normal No Feb 14 es informati 2016 7:45 [#/volume on in AM ] in source Unspecifi data ed specimen by Automated count Lymphocyt 10 - 50 % Normal No Feb 14 es informati 2016 7:45 [#/volume on in AM ] in source Unspecifi data ed specimen by Automated count Erythrocy 27 - 31.2 pg High No Feb 14 te mean informati 2016 7:45 corpuscul on in AM ar source hemoglobi data n [Entitic mass] Erythrocy 31.8 - g/dl Normal No Feb 14 te mean 35.4 informati 2016 7:45 corpuscul on in AM ar source hemoglobi data n concentra tion [Mass/vol ume] by Automated count Erythrocy 82.2 - fl Normal No Feb 14 te mean 97.8 informati 2016 7:45 corpuscul on in AM ar volume source [Entitic data volume] by Automated count Monocytes 0.1 - 1.0 K/mm3 Normal No Feb 14 informati 2016 7:45 [#/volume on in AM ] in source Blood by data Automated count Monocytes 1.7 - 9.3 % Normal No Feb 14 /100 informati 2017 7:45 leukocyte on in AM s in source Blood by data Automated count Platelet 7.4 - fl Normal No Feb 14 mean 10.4 informati 2016 7:45 volume on in AM [Entitic source volume] data in Blood by Automated count Platelets 142 - 424 K/mm3 Normal No Feb 14 informati 2016 7:45 [#/volume on in AM ] in source Blood data Erythrocy 4.6 - 6.2 M/mm3 Low No Feb 14 tracey informati 2016 7:45 [#/volume on in AM ] in source Amniotic data fluid Erythrocy 11.5 - % Normal No Feb 14 te 17.5 informati 2016 7:45 distribut on in AM ion width source [Entitic data volume] by Automated count Leukocyte 4.8 - K/MM3 Normal No Feb 14 s 10.8 informati 2016 7:45 [#/volume on in AM ] in source Blood data
--- OUTSIDE RECORDS SUMMARY | 2017-03-08 17:55 | External Medical Summary Rpt ---
Demographics Preferred Language Samoan Marital Status Unknown Restoration Affiliation Unknown Race Unknown Ethnic Group Unknown Author Author , PATIENCE CHIN Address Unknown Phone Immunization Unable to retrieve immunization data due to connection failure with Immunization Registry. Please try again later.
--- OUTSIDE RECORDS SUMMARY | 2017-03-08 17:55 | External Medical Summary Rpt ---
[...] 37.0 - % Normal No Feb 14 tarcey/100 80.0 informati 2016 7:45 leukocyte on in [...]
--- OUTSIDE RECORDS SUMMARY | 2017-03-08 17:55 | External Medical Summary Rpt ---
Demographics Preferred Language American Marital Status Unknown Holiness Affiliation Unknown Race Unknown Ethnic Group Unknown Author Author , PATIENCE CHIN Address Unknown Phone Immunization Unable to retrieve immunization data due to connection failure with Immunization Registry. Please try again later.
== END 2017-03-06 01:25 | disposition home or self-care (01) ==
LOC: ER 19:44
PROVIDERS: Emergency Medicine
DX: R42 Dizziness and giddiness (principal); I10 Essential (primary) hypertension; F41.9 Anxiety disorder, unspecified; Z95.0 Presence of cardiac pacemaker

== ENCOUNTER 2017-05-09 20:44 | Observation (INO) | payer MEDICARE, MEDICAID ==
[~2017-05-09] VITALS: Ht 175.3 cm; Wt 106.3 kg
[2017-05-09 20:45] VITALS: BP 159/100
[2017-05-09 20:57] LABS: HEMOGLOBIN 12.5 g/dL (14.1-18.0); LYMPH # 1.8 K/mm3 (0.7-4.5); LYMPH % 29.8 % (10-50)
--- NOTE | 2017-05-09 21:35 | Emergency Room Report ---
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 N Clinical Suspician of Infection? N Mental Status: 1 - Regular (Normal Baseline) Sepsis Risk:Low Sepsis Risk Have you (or family members/close friends) recently traveled outside the [place]? N If Yes, where/when: Have you had exposure to infectious disease within the past month? N TB? Other? Specify: Source patient, RN notes reviewed, EMS, custodial records, old records Exam Limitations no limitations Comment pt with [facility] of [facility] - pt with hx of cad - pt with no chest pain - Cardiac Chest Pain Chest pain indicative of cardiac No Timing/Duration this evening Severity moderate ALLERGIES Coded Allergies: No Known Allergies (01/28/17) Home Medications Reported Medications LISINOPRIL (Lisinopril) 10 MG PO DAILY Metoprolol Tartrate (Lopressor) 12.5 MG PO BID Mirtazapine (Remeron) 15 MG PO QHS Escitalopram Oxalate (Escitalopram 20MG) 20 MG PO DAILY ASPIRIN (Aspirin) 81 MG PO DAILY Atorvastatin Calcium (Lipitor 20MG) 40 MG PO DAILY Prasugrel HCl (Effient) 10 MG PO DAILY History Medical History General CAD? Yes Angina: Yes CA: No Hypertension? Yes Hyperlipidemia? No CHF? No DVT? No PE? No COPD? No Asthma? No Anemia? No GERD? No Gastric ulcers? No GI Bleed? No Hernia? No Thyroid Problems? No Hypothyroidism? No CVA? No Seizures? No Diabetes? No Renal Insuffiency? No End Stage Renal Disease? No UTI? No Stones? No BPH? No GB Disease: No Nephritic Syndrome? No Hepatitis? No Sickle Cell Disease? No Arthritis? No Migraines? No Cataracts? No Glaucoma? No MRSA? No HIV? No TB? No Anxiety? Yes Depression? No Cancer? No More? Yes Additional hx: ADJUSTMENT DISOERDER Immunization Hx DT/Tetanus Unknown Flu Refused Pneumonia Received In Past Surgical Hx Previous Surgery?Y ABLATION PACEMAKER CARDIAC CATH X1 STENT Family History Family Hx Diabetes No CAD No Hypertension No Hyperlipidemia No Cancer No TB No Social History Smoking Hx Smoker: Former Smoker Tobacco: No Are you/the child exposed to second-hand smoke: Yes Alcohol Alcohol: No Drugs none Review of Systems All Other Systems Reviewed and Negative Constitutional see HPI, denies fever, other Eyes denies drainage ENT denies: ear pain, epistaxis, missing teeth, throat pain. Respiratory denies cough, denies shortness of breath, denies wheezing Cardiovascular denies chest pain, denies syncope Gastrointestinal denies abdominal pain, denies diarrhea, denies vomiting Genitourinary denies: dysuria, frequency, hesitancy, hematuria. Musculoskeletal denies back pain, denies joint pain, denies joint swelling, denies neck pain Skin denies rash Psychiatric/Neurological denies headache, denies seizure Physical Exam Vital Signs Vital Signs Date Time Temp Pulse Resp B/P Pulse O2 O2 Flow FiO2 Ox Delivery Rate 05/10 0015 89 20 158/100 95 05/09 2339 60 20 142/85 93 05/09 2310 90 20 169/93 96 05/09 2244 98.8 87 20 164/57 92 05/09 2205 63 20 167/87 97 05/098 62 20 135/85 97 05/09 2120 98.7 62 20 163/98 96 05/09 2045 98.7 61 20 159/100 96 - WBC >12,000 or <4,000 or 10% bands? 2 or more SIRS Criteria Met? B/P:135/85 MAP:119 Creatinine >2.0? UA output<0.5ml/kg/hr for 2 hrs? Platelet count >100,000? Lactate >2.0mmol/1? INR >1.2 or PTT > than 60 sec? Evidence of Organ Dysfunction? Provider documented clinical suspician of infection? N Sepsis Criteria Count: 0 Sepsis Risk: Low Sepsis Risk General Appearance no apparent distress Eye Exam - bilateral eye PERRL, bilateral eye EOMI Ear, Nose, Throat normal ENT inspection Neck supple Respiratory Status No: respiratory distress. Lung Sounds bilateral: lungs clear. Cardiovascular regular rate/rhythm, systolic murmur Peripheral Pulses Pulses normal Yes Gastrointestinal soft Extremities normal inspection Strength 4 Upper Ext (L), 4 Upper Ext (R), 4 Lower Ext (L), 4 Lower Ext (R) Neurologic alert, manager convention II-XII nml as tested, no motor/sensory deficits Reflexes Reflexes normal No Mental status normal mood/affect Skin intact Medical Decision Making LABS/Meds/Orders Pt receiving controlled substance in ED? No Results/Orders Laboratory Tests 05/09/172045: Creatine Kinase 147, CK-MB (CK-2) Rel Index 1.0, CK and CKMB Interp 1.4, Troponin I < 0.02 05/09/172045: Sodium 139, Potassium 4.2, Chloride 106, Carbon Dioxide 30, BUN 34 H, Creatinine 1.3, Estimated Creat Clear 81, Estimated GFR (MDRD) 56, Glucose 88, Calcium 8.9, Total Bilirubin 0.3, AST 17, ALT 36, Alkaline Phosphatase 102, Total Protein 7.5, Albumin 3.7, Globulin 3.8 H, Albumin/Globulin Ratio 1.0 L, WBC 6.1, RBC 4.02 L, Hgb 12.5 L, Hct 39.6 L, MCV 98.3 H, RDW 13.0, Plt Count 209, MPV 8.3, Gran % 56.2, Gran # 3.4, Lymphocytes % 29.8, Monocytes % 8.9, Eosinophils % 4.7, Basophils % 0.5, Lymphocytes # 1.8, Monocytes # 0.5, Eosinophils # 0.3, Basophils # 0.0, PUBS MCHC 31.6 L, MCH 31.1 Current Medication Orders Sig/Antonio Start time Last Medication Dose Route Stop Time Status Admin Sodium Chloride 10 ML PRN PRN 05/09 2100 AC IV 05/10 2051 Orders Procedure Date/time Status Decision to admit 05/10 17 Active DRUG ABUSE SCREEN (TRIAGE) 05/09 2135 Active ELECTROCARDIOGRAM REQUEST 05/09 2116 Active CHEST-PORTABLE 05/09 2116 Active 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 of ischemic chgs XRAY/CT/US XRAY/CT/US XRAY chest XR interpretation by reviewed by me Xray Results abnormal (cm) Departure Departure Time of Disposition 0026 Disposition Still a Patient Clinical Impression Primary Impression: Near syncope Condition STABLE Referrals Daily ROSAS,Gabriel Segal (Family) ED Critical Care [place] 0047
--- NOTE | 2017-05-09 21:35 | Emergency Room Report ---
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 N Clinical Suspician of Infection? N Mental Status: 1 - Regular (Normal Baseline) Sepsis Risk:Low Sepsis Risk Have you (or family members/close friends) recently traveled outside the [place]? N If Yes, where/when: Have you had exposure to infectious disease within the past month? N TB? Other? Specify: Source patient, RN notes reviewed, EMS, detention records, old records Exam Limitations no limitations Comment pt with episode of near syncope at detention - pt with hx of cad - pt with no chest pain - Cardiac Chest Pain Chest pain indicative of cardiac No Timing/Duration this evening Severity moderate ALLERGIES Coded Allergies: No Known Allergies (01/28/17) Home Medications Reported Medications LISINOPRIL (Lisinopril) 10 MG PO DAILY Metoprolol Tartrate (Lopressor) 12.5 MG PO BID Mirtazapine (Remeron) 15 MG PO QHS Escitalopram Oxalate (Escitalopram 20MG) 20 MG PO DAILY ASPIRIN (Aspirin) 81 MG PO DAILY Atorvastatin Calcium (Lipitor 20MG) 40 MG PO DAILY Prasugrel HCl (Effient) 10 MG PO DAILY History Medical History General CAD? Yes Angina: Yes [place]: No Hypertension? Yes Hyperlipidemia? No CHF? No DVT? No PE? No COPD? No Asthma? No Anemia? No GERD? No Gastric ulcers? No GI Bleed? No Hernia? No Thyroid Problems? No Hypothyroidism? No CVA? No Seizures? No Diabetes? No Renal Insuffiency? No End Stage Renal Disease? No UTI? No Stones? No BPH? No GB Disease: No Nephritic Syndrome? No Hepatitis? No Sickle Cell Disease? No Arthritis? No Migraines? No Cataracts? No Glaucoma? No MRSA? No HIV? No TB? No Anxiety? Yes Depression? No Cancer? No More? Yes Additional hx: ADJUSTMENT DISOERDER Immunization Hx DT/Tetanus Unknown Flu Refused Pneumonia Received In Past Surgical Hx Previous Surgery?Y ABLATION PACEMAKER CARDIAC CATH X1 STENT Family History Family Hx Diabetes No CAD No Hypertension No Hyperlipidemia No Cancer No TB No Social History Smoking Hx Smoker: Former Smoker Tobacco: No Are you/the child exposed to second-hand smoke: Yes Alcohol Alcohol: No Drugs none Review of Systems All Other Systems Reviewed and Negative Constitutional see HPI, denies fever, other Eyes denies drainage ENT denies: ear pain, epistaxis, missing teeth, throat pain. Respiratory denies cough, denies shortness of breath, denies wheezing Cardiovascular denies chest pain, denies syncope Gastrointestinal denies abdominal pain, denies diarrhea, denies vomiting Genitourinary denies: dysuria, frequency, hesitancy, hematuria. Musculoskeletal denies back pain, denies joint pain, denies joint swelling, denies neck pain Skin denies rash Psychiatric/Neurological denies headache, denies seizure Physical Exam Vital Signs Vital Signs Date Time Temp Pulse Resp B/P Pulse O2 O2 Flow FiO2 Ox Delivery Rate 05/10 0015 89 20 158/100 95 05/09 2339 60 20 142/85 93 05/09 2310 90 20 169/93 96 05/09 2244 98.8 87 20 164/57 92 05/09 2205 63 20 167/87 97 05/098 62 20 135/85 97 05/09 2120 98.7 62 20 163/98 96 05/09 2045 98.7 61 20 159/100 96 - WBC >12,000 or <4,000 or 10% bands? 2 or more SIRS Criteria Met? B/P:135/85 MAP:119 Creatinine >2.0? UA output<0.5ml/kg/hr for 2 hrs? Platelet count >100,000? Lactate >2.0mmol/1? INR >1.2 or PTT > than 60 sec? Evidence of Organ Dysfunction? Provider documented clinical suspician of infection? N Sepsis Criteria Count: 0 Sepsis Risk: Low Sepsis Risk General Appearance no apparent distress Eye Exam - bilateral eye PERRL, bilateral eye EOMI Ear, Nose, Throat normal ENT inspection Neck supple Respiratory Status No: respiratory distress. Lung Sounds bilateral: lungs clear. Cardiovascular regular rate/rhythm, systolic murmur Peripheral Pulses Pulses normal Yes Gastrointestinal soft Extremities normal inspection Strength 4 Upper Ext (L), 4 Upper Ext (R), 4 Lower Ext (L), 4 Lower Ext (R) Neurologic alert, leveler II-XII nml as tested, no motor/sensory deficits Reflexes Reflexes normal No Mental status normal mood/affect Skin intact Medical Decision Making LABS/Meds/Orders Pt receiving controlled substance in ED? No Results/Orders Laboratory Tests 05/09/172045: Creatine Kinase 147, CK-MB (CK-2) Rel Index 1.0, CK and CKMB Interp 1.4, Troponin I < 0.02 05/09/172045: Sodium 139, Potassium 4.2, Chloride 106, Carbon Dioxide 30, BUN 34 H, Creatinine 1.3, Estimated Creat Clear 81, Estimated GFR (MDRD) 56, Glucose 88, Calcium 8.9, Total Bilirubin 0.3, AST 17, ALT 36, Alkaline Phosphatase 102, Total Protein 7.5, Albumin 3.7, Globulin 3.8 H, Albumin/Globulin Ratio 1.0 L, WBC 6.1, RBC 4.02 L, Hgb 12.5 L, Hct 39.6 L, MCV 98.3 H, RDW 13.0, Plt Count 209, MPV 8.3, Gran % 56.2, Gran # 3.4, Lymphocytes % 29.8, Monocytes % 8.9, Eosinophils % 4.7, Basophils % 0.5, Lymphocytes # 1.8, Monocytes # 0.5, Eosinophils # 0.3, Basophils # 0.0, PUBS MCHC 31.6 L, MCH 31.1 Current Medication Orders Sig/Antonio Start time Last Medication Dose Route Stop Time Status Admin Sodium Chloride 10 ML PRN PRN 05/09 2100 AC IV 05/10 2051 Orders Procedure Date/time Status Decision to admit 05/10 17 Active DRUG ABUSE SCREEN (TRIAGE) 05/09 2135 Active ELECTROCARDIOGRAM REQUEST 05/09 2116 Active CHEST-PORTABLE 05/09 2116 Active COUNTY HEALTH OFFICER 05/09 2116 Active CARDIAC ENZYMES 05/09 2116 Complete 12 LEAD EKG-ANGELA (INITIAL) 05/09 2108 Active ELECTROCARDIOGRAM REQUEST 05/09 2108 Active IV SALINE LOCK 05/09 2052 Active URINARY CATHETER INSERT 05/09 2052 Active URINALYSIS/COMPLETE 05/09 2052 Active CBC WITH AUTO DIFF 05/09 2052 Complete CHEM 12 PROFILE 10/05 2052 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 of ischemic chgs XRAY/CT/US XRAY/CT/US XRAY chest XR interpretation by reviewed by me Xray Results abnormal (cm) Departure Departure Time of Disposition 0026 Disposition Still a Patient Clinical Impression Primary Impression: Near syncope Condition STABLE Referrals Daily ROSAS,Gabriel Segal (Family) ED Critical Care Critical Care No at 0047
[2017-05-10] VITALS (7 sets, daily range): BP systolic 121–145; BP diastolic 78–90
[2017-05-10] MEDS ORDERED: RISPERIDONE1 MG PO (02:41)
--- NOTE | 2017-05-10 07:18 | PHARMACY CLINIC NOTE ---
Patient Demographics Patient Demographics Admission date: 05/10/17 Date: 05/10/17 Time: 0718 Allergies Coded Allergies: No Known Allergies (01/28/17) HEIGHT- FT: 5 IN: 9.00 K.312 VTE General Information Labs: Laboratory Tests 05/09 2046 Hematology Hgb (14.1 - 18.0 g/dL) 12.5 L Hct (42.0 - 52.0 %) 39.6 L Plt Count (142 - 424 K/mm3) 209 Disclaimer The following section includes nursing documentation that has been pulled in for pharmacy review. Patient's VTE score: 2 Patient's VTE Risk: VERY LOW RISK Clinical trial participant? No VTE prophylaxis F [id number] VTE prophylaxis ordered? Yes Type of prophylaxis/treatment: EDILMA at 0718
--- NOTE | 2017-05-10 07:24 | RADIOLOGY REPORT PS360 ---
CHEST-PORTABLE COMPARISON: Portable upright chest 02/22/2017 HISTORY: Diaphoresis TECHNIQUE: Portable upright chest FINDINGS: Is a poor inspiration however lung olivier are clear of infiltrate. There is aortic tortuosity but no cardiomegaly considering the poor inspiration. The pacemaker and dual chamber electrodes are again noted. IMPRESSION: Poor inspiration, no acute chest pathology noted
--- NOTE | 2017-05-10 08:44 | CARDIOVASCULAR REPORT ---
"Cerebrovascular Exam Indications: murmur. IMPRESSIONS 1. The bilateral vertebral arteries are patent with normal antegrade flow. 2. Study suggests 20-49% stenosis involving the right internal carotid artery and the left internal carotid artery, lower end of the scale. Carotid duplex study. Complete study and Doppler flow study including spectral analysis, color and mc scale imaging. Height: Height: 175.3cm. Height: 69in. Weight: Weight: 99.8kg. Weight: 219.5lb. Body mass index: BMI: 32.5kg/m^2. Body surface area: BSA: 2.24m^2. Location: Bedside. Patient status: Inpatient. Tables: Arterial flow: + +--------+--------+ |Location |V sys |V ed | + +--------+--------+ |Right CCA - proximal|53.1cm/s|13.5cm/s| + +--------+--------+ |Right CCA - distal |44.3cm/s|11cm/s | + +--------+--------+ |Right ECA |53.1cm/s|--------| + +--------+--------+ |Right ICA - proximal|27.7cm/s|9.4cm/s | + +--------+--------+ |Right ICA - mid |50cm/s |20.7cm/s| + +--------+--------+ |Right ICA - distal |44.3cm/s|16.3cm/s| + +--------+--------+ |Right vertebral |22cm/s |--------| + +--------+--------+ |Left CCA - proximal |69.9cm/s|22.8cm/s| + +--------+--------+ |Left CCA - distal |62.9cm/s|15.3cm/s| + +--------+--------+ |Left ECA |50.8cm/s|--------| + +--------+--------+ |Left ICA - proximal |40.5cm/s|16.1cm/s| + +--------+--------+ |Left ICA - mid |39.5cm/s|17.3cm/s| + +--------+--------+ |Left ICA - distal |46.3cm/s|20.5cm/s| + +--------+--------+ |Left vertebral |24.2cm/s|--------| + +--------+--------+ Velocity ratios: + + + + + + | |Right, V sys|Right, V ed|Left, V sys|Left, V ed| + + + + + + |Max ICA/dist CCA|1.13 |1.88 |0.74 |1.34 | + + + + + + (Report amended ) Electronically signed by: Chinmay Ramos [id number]"
--- NOTE | 2017-05-10 09:22 | CONSULT NOTE ---
Standard Demographics Patient Demo Date of Consultation: 05/10/17 Referring Provider: Didi Ambrosio MD Reason for Consultation: Near Syncope PRIMARY DIAGNOSIS: NEAR SYNCOPE Problem list Problem list: 1. Coronary artery disease A. Cardiac catheterization, 02/14/2017, ANGIOGRAPHIC RESULTS: 1. The left main artery normal 2. The left anterior descending artery proximally has mild vascular ectasia with 20% atherosclerotic nonflow limiting plaque. The mid segment has a 50-60% stenosis and a large 3.25 mm diameter vessel 3. The circumflex artery is a codominant vessel and has mild luminal irregularities 4. The ramus intermedius is a large 3 to 3 1/2 mm vessel and has a proximal concentric 40% stenosis 5. The right coronary artery is a codominant vessel and has mild diffuse vascular ectasia and mild luminal irregularities 6. The [place] ventriculogram reveals normal 65% 7. The left ventricular end-diastolic pressure normal 10 mmHg IMPRESSION: 1. Angiographically indeterminate mid LAD disease which produced a severe ischemic response to adenosine 2. Successful stenting of the mid LAD hemodynamically severe disease reduced to 0% with 1 drug-eluting stent 3. Normal ejection fraction 4. Normal left ventricular end-diastolic pressure 2. Poor historian 3. Schizophrenia 4. Hypertension 5. Hyperlipidemia 6. Permanent pacemaker insertion after ablation therapy History of present illness: History of present illness: 62-year-old white male with history of coronary disease, hypertension, hyperlipidemia and schizophrenia was sent from personal halfway for episode of near syncope. Patient reportedly had hypotension with diaphoresis but did not pass out. Patient is a poor historian and cannot provide any significant history. He is currently asymptomatic at this time. ER evaluation last evening revealed no acute coronary process but patient was admitted for monitoring with serial cardiac enzymes. Troponins have returned normal overnight. Electrocardiogram from last evening shows sinus rhythm at 61 bpm with left ventricular hypertrophy criteria. Pacemaker interrogation this a.m. shows no arrhythmias yesterday. He has had some nonsustained supraventricular tachycardia in April that lasts only a few seconds at a time. Telemetry overnight reveals no significant arrhythmias. Cardiology consulted for evaluation and recommendations. Past Medical History: General: Hypertension Yes CVA No Seizures No TB No COPD No Asthma No Diabetes No Angina Yes [place] No Hyperlipidemia No Cancer No Ulcers No MRSA No GB Disease No Other SCHIZOPHRENIA Additional hx ADJUSTMENT DISORDER Past Surgical HX: Previous Surgery?Y ABLATION PACEMAKER CARDIAC CATH X1 STENT Allergies Coded Allergies: No Known Allergies (01/28/17) Home medications: Reported Medications Risperidone 2 MG PO BID LISINOPRIL (Lisinopril) 10 MG PO DAILY Metoprolol Tartrate (Lopressor) 12.5 MG PO BID Mirtazapine (Remeron) 15 MG PO QHS Escitalopram Oxalate (Escitalopram 20MG) 20 MG PO DAILY ASPIRIN (Aspirin) 81 MG PO DAILY Atorvastatin Calcium (Lipitor 20MG) 40 MG PO DAILY Prasugrel HCl (Effient) 10 MG PO DAILY Current Medications: Current Medications Mirtazapine 15 MG QHS PO Aspirin 81 MG DAILY PO Atorvastatin Calcium 40 MG DAILY PO Lisinopril 10 MG DAILY PO Metoprolol Tartrate 12.5 MG BID PO Prasugrel 10 MG DAILY PO Risperidone 2 MG BID PO Sodium Chloride 10 ML PRN PRN IV Acetaminophen 650 MG Q4HP PRN PO Influenza Virus Vaccine Quadrival 0.5 ML PRN PRN IM Ondansetron HCl 4 MG Q6HP PRN IV Sodium Chloride 1,000 ML .Q20H IV Sodium Chloride 10 ML PRN PRN IV Immunization HX DT/Tetanus Unknown Flu Refused Pneumonia RECEIVED IN PAST TB Test in last year No Family history Family HX Family Hx Insignificant No Diabetes No CAD No Hypertension No Hyperlipidemia No Cancer No TB No Social Hx: Smoking HX Tobacco No Are you/the child exposed to second-hand smoke: Yes Alcohol Alcohol: No Hx of Drug Use Drug Use? No Review of systems: Constitutional see HPI, weakness. Respiratory No: no symptoms reported. Cardiovascular No no symptoms reported Gastrointestinal/Abdominal No no symptoms reported Genitourinary No: no symptoms reported. Musculoskeletal No: no symptoms reported. Neurological No: no symptoms reported. Exam: Admission Vital Signs: 1ST Vital Signs Result Date Time Pulse Ox 96 05/09 2045 B/P 159/100 05/09 2045 Temp 98.7 05/09 2045 Pulse 61 05/09 2045 Resp 20 05/09 2045 O2 Delivery ROOM AIR 05/10 0134 O2 Flow Rate 2 05/10 0142 Last Vital Signs: Vital Signs Result Date Time Pulse Ox 90 05/10 847 B/P 121/78 05/10 847 O2 Delivery ROOM AIR 05/10 847 Temp 97.5 05/10 847 Pulse 61 10/06 0847 Resp 18 10/06 0847 O2 Flow Rate 2 05/10 0142 Exam General appearance: alert, awake, no acute distress Neck: no carotid bruit, no JVD Cardiovascular: regular rate & rhythm Respiratory: clear to auscultation ABD: soft, no tenderness Extremities: moves all, no peripheral edema Neuro: alert Laboratory data: Laboratory Tests 05/10/17 0655: Troponin I 0.02 05/09/172045: Creatine Kinase 147, CK-MB (CK-2) Rel Index 1.0, CK and CKMB Interp 1.4, Troponin I < 0.02 05/09/172045: Sodium 139, Potassium 4.2, Chloride 106, Carbon Dioxide 30, BUN 34 H, Creatinine 1.3, Estimated Creat Clear 81, Estimated GFR (MDRD) 56, Glucose 88, Calcium 8.9, Total Bilirubin 0.3, AST 17, ALT 36, Alkaline Phosphatase 102, Total Protein 7.5, Albumin 3.7, Globulin 3.8 H, Albumin/Globulin Ratio 1.0 L, WBC 6.1, RBC 4.02 L, Hgb 12.5 L, Hct 39.6 L, MCV 98.3 H, RDW 13.0, Plt Count 209, MPV 8.3, Gran % 56.2, Gran # 3.4, Lymphocytes % 29.8, Monocytes % 8.9, Eosinophils % 4.7, Basophils % 0.5, Lymphocytes # 1.8, Monocytes # 0.5, Eosinophils # 0.3, Basophils # 0.0, PUBS MCHC 31.6 L, MCH 31.1 Plan: Assessment: 1. Near syncopal episode without etiology. Troponins have returned normal 2 thus far. Interrogation of his pacemaker reveals no arrhythmias to account for his symptoms last night. Carotid ultrasound reveals 20-49 percent stenosis bilaterally. 2. Coronary disease with recent coronary artery stenting. Continue dual antiplatelet therapy. Would not recommend further testing at this time. Consider outpatient stress testing to follow-up on residual mild to moderate ramus intermedius disease. 3. Schizophrenia 4. Permanent pacemaker with history of ablation therapy. Recommendations: Discussed with Dr. Shotwell. Plascencia for discharge from cardiology standpoint. at 0945
--- NOTE | 2017-05-10 12:22 | Discharge Summary Standard ---
Demographics: Admit date: 05/09/17 Chief complaint: syncope PRIMARY DIAGNOSIS: NEAR SYNCOPE Allergies: Coded Allergies: No Known Allergies (01/28/17) History of present illness: History of present illness: 62-year-old white male with history of coronary disease, hypertension, hyperlipidemia and schizophrenia was sent from [facility] for episode of near syncope. Patient reportedly had hypotension with diaphoresis but did not pass out. Patient is a poor historian and cannot provide any significant history. He is currently asymptomatic at this time. ER evaluation last evening revealed no acute coronary process but patient was admitted for monitoring with serial cardiac enzymes. Troponins have returned normal overnight. Electrocardiogram from last evening shows sinus rhythm at 61 bpm with left ventricular hypertrophy criteria. Pacemaker interrogation this a.m. shows no arrhythmias yesterday. He has had some nonsustained supraventricular tachycardia in April that lasts only a few seconds at a time. Telemetry overnight reveals no significant arrhythmias. Cardiology consulted for evaluation and recommendations. Past medical history: Family HX Diabetes No CAD No Hypertension No Hyperlipidemia No Cancer No TB No Immunization HX DT/Tetanus Unknown Flu Refused Pneumonia Received In Past TB Test in last year No General CAD? Yes Angina: Yes [place]: No Hypertension? Yes Hyperlipidemia? No CHF? No DVT? No PE? No COPD? No Asthma? No Anemia? No GERD? No Gastric ulcers? No GI Bleed? No Hernia? No Thyroid Problems? No Hypothyroidism? No CVA? No Seizures? No Diabetes? No Renal Insuffiency? No UTI? No Stones? No BPH? No GB Disease: No Nephritic Syndrome? No Hepatitis? No Sickle Cell Disease? No Arthritis? No Migraines? No Cataracts? No Glaucoma? No MRSA? No HIV? No TB? No Anxiety? Yes Depression? No Cancer? No More? Yes Additional hx: ADJUSTMENT DISORDER Past Surgical HX Previous Surgery?Y ABLATION PACEMAKER CARDIAC CATH X1 STENT Current home meds: Reported Medications Risperidone 2 MG PO BID LISINOPRIL (Lisinopril) 10 MG PO DAILY Metoprolol Tartrate (Lopressor) 12.5 MG PO BID Mirtazapine (Remeron) 15 MG PO QHS Escitalopram Oxalate (Escitalopram 20MG) 20 MG PO DAILY ASPIRIN (Aspirin) 81 MG PO DAILY Atorvastatin Calcium (Lipitor 20MG) 40 MG PO DAILY Prasugrel HCl (Effient) 10 MG PO DAILY Social Hx: Smoking HX Tobacco No Are you/the child exposed to second-hand smoke: Yes Alcohol Alcohol: No Hx of Drug Use Drug Use? No Review of systems: Constitutional see HPI. Respiratory No: no symptoms reported. Cardiovascular see HPI, syncope Gastrointestinal/Abdominal No no symptoms reported Genitourinary No: no symptoms reported. Musculoskeletal No: no symptoms reported. Skin No: no symptoms reported. Neurological Yes: see HPI. Psychiatric No: no symptoms reported. Exam: Lab data for last 24 hours: Laboratory Tests 05/10/17 0655: Troponin I 0.02 05/09/172045: Creatine Kinase 147, CK-MB (CK-2) Rel Index 1.0, CK and CKMB Interp 1.4, Troponin I < 0.02 05/09/172045: Sodium 139, Potassium 4.2, Chloride 106, Carbon Dioxide 30, BUN 34 H, Creatinine 1.3, Estimated Creat Clear 81, Estimated GFR (MDRD) 56, Glucose 88, Calcium 8.9, Total Bilirubin 0.3, AST 17, ALT 36, Alkaline Phosphatase 102, Total Protein 7.5, Albumin 3.7, Globulin 3.8 H, Albumin/Globulin Ratio 1.0 L, WBC 6.1, RBC 4.02 L, Hgb 12.5 L, Hct 39.6 L, MCV 98.3 H, RDW 13.0, Plt Count 209, MPV 8.3, Gran % 56.2, Gran # 3.4, Lymphocytes % 29.8, Monocytes % 8.9, Eosinophils % 4.7, Basophils % 0.5, Lymphocytes # 1.8, Monocytes # 0.5, Eosinophils # 0.3, Basophils # 0.0, PUBS MCHC 31.6 L, MCH 31.1 Admission vital signs: 1ST Vital Signs Result Date Time Pulse Ox 96 05/09 2045 B/P 159/100 05/09 2045 Temp 98.7 05/09 2045 Pulse 61 05/09 2045 Resp 20 05/09 2045 O2 Delivery ROOM AIR 05/10 013 O2 Flow Rate 2 05/10 0142 Exam General appearance: normal appearance, active, awake, no acute distress Eyes: normal exam ENT: normal exam Neck: normal inspection, full range of motion Cardiovascular: normal exam, regular rate & rhythm Respiratory: normal exam, clear to auscultation, good air movement, no respiratory distress ABD: normal exam, soft Genitourinary: normal voiding & quantity Extremities: normal exam, normal capillary refill, warm Musculoskeletal: equal muscle strength Skin: normal exam, intact, warm Neuro: normal exam, alert, intact, oriented Hospital Course Hospital Course: cardic work up- neg, cardiology consult: cardtiod droopler: IMPRESSIONS 1. The bilateral vertebral arteries are patent with normal antegrade flow. 2. Study suggests 20-49% stenosis involving the right internal carotid artery and the left internal carotid artery, lower end of the scale. Medications Medications: Discharge meds are as noted. Follow up Follow up in office in: 7 DAYS with: Mario ROSAS,Gabriel Segal Comment: rounded with mario at [id number]
--- NOTE | 2017-05-10 13:53 | RADIOLOGY REPORT PS360 ---
PROCEDURE: 2-D M-mode and color Doppler study INDICATIONS FOR THE TEST: Chest pain COPD Heart Murmur+ Tobacco Smoking Palpitations Fatigue Syncope Edema Hypertension Diabetes Mellitus Rheumatic Fever SOB COLON Obesity Hyperlipidemia Family History HD Additional History PATIENT INFORMATION HEIGHT: 69 WEIGHT:220 GENDER: Male B/P:121/78 2-D/M-MODE INTERPRETATION: 2-D MEASUREMENTS OBSERVED VALUES IN CMS Right Ventricular Dimension (RVDd) 3.0 Interventricular Septum (Thickness)(IVsd) ? Left Ventricular Internal Dimensions(LVIDd) 3.6 Left Ventricular Posterior Wall (Thickness)(LVPWd) 1.2 Aortic Root 4.4 Aortic Cusp Separation 2.1 Left Atrial Dimensions (LAD) 3.9 2D 1. This is technically very difficult and poor study, endocardial surfaces as well as the valvular structures are poorly visualized. A repeat study with Definity contrast is recommended. 2. The left atrium is mildly enlarged, left ventricle is normal size, there is left ventricular hypertrophy present, endocardial surface of very poorly visualized. A repeat study with Definity contrast is recommended. Possibly preserved left ventricular systolic function. 3. The right atrium and right ventricle are mildly enlarged with normal contractility. 4. The aortic root is enlarged measuring 4.4 cm, valve morphology is not well visualized. 5. The mitral valve leaflets are minimally thickened. 6. The pulmonic and tricuspid valve leaflets are not well visualized. 7. No significant pericardial effusion noted. DOPPLER INTERROGATION: Doppler interrogation of the aortic, mitral and tricuspid valvular presence of mild mitral and tricuspid regurgitation, tricuspid regurgitant jet velocity is insufficient for calculation of the right ventricular systolic pressure, grade 1 diastolic dysfunction seen with tissue Doppler evidence of raised left atrial pressure. CONCLUSION: 1. Technically difficult and portable study as described above, a repeat study with Definity contrast is strongly recommended. 2. Mildly enlarged left atrium, there is left ventricular hypertrophy present, possible preserved left ventricular systolic function. A repeat study with Definity contrast is recommended. 3. Enlarged aortic root and ascending aorta measuring 4.4 cm, aortic valve morphology is not well visualized. 4. Mild mitral and tricuspid regurgitation. 5. Grade 1 diastolic dysfunction seen with tissue Doppler evidence of raised left atrial pressure. 6. No significant pericardial effusion noted.
--- OUTSIDE RECORDS SUMMARY | 2017-05-17 00:18 | External Medical Summary Rpt | CCD ---
Author Author , ELSY Organization ELSY Address Unknown Phone [email or web address] Care Team Providers Care Recreational Vehicle Resort Manager Name Role Phone RHONDA ELLIS Unavailable Unavailable YOUNGER BALDEMAR, YOUNGER BALDEMAR Unavailable Unavailable BEINEKE, BEINEKE Unavailable Unavailable [facility] Unavailable Unavailable [facility], [facility] ZIMMERMAN, ZIMMERMAN Unavailable Unavailable BUSLER CAR, BUSLER Unavailable Unavailable CAR [facility] Unavailable Unavailable SPECIALIS, [facility] EUNICE KIMBERLEY, EUNICE Unavailable Unavailable KIMBERLEY YAZ MARYELLEN, YAZ Unavailable Unavailable MARYELLEN [facility] Unavailable Unavailable TRANSPORTATION SER, [facility] YODIT KISHORE, Unavailable Unavailable YODIT KISHORE [facility] Unavailable Unavailable INC, [facility], Unavailable Unavailable [facility] Unavailable Unavailable [facility], [facility] Unavailable Unavailable REG[facility]AL [facility], [facility] KILLIAN ALYSSA, KILLIAN ALYSSA Unavailable Unavailable DUVALL II DENNISE, DUVALL Unavailable Unavailable II DENNISE [facility], Unavailable Unavailable PLL[facility], [facility] Unavailable Unavailable ASSOCIATE, [facility] STACEY SCHULTZ, STACEY Unavailable Unavailable [facility] Unavailable Unavailable [facility], [facility] GONG GRE, GONG Unavailable Unavailable [facility], [facility] Unavailable Unavailable KRISTIN, KRISTIN Unavailable Unavailable SKEENS MAIKOL, SKEENS Unavailable Unavailable [facility] DONTRELL, Unavailable Unavailable DONTRELL [facility], Unavailable Unavailable [facility] Unavailable [facility]available [facility], [facility] WOODY II JAM, WOODY Unavailable Unavailable II JAM MEEKS CHARLIE, Unavailable Unavailable MEEKS CHARLIE MEEKS CHARLIE, Unavailable Unavailable MEEKS CHARLIE Purpose Continuity of Care Document - 05-11-2013 through 2016 Problems Code Diagnosis DOS Provider Status R42 DIZZINESS 03-05-2017 [facility] R079 CHEST PAIN 02-22-2017 [facility] R69 ILLNESS 02-21-2017 [facility] UNSPECIFIED TRANSPORTAT ION SER I10 ESSENTIAL 02-14-2017 [facility] HYPERTENSI[facility] N I208 OTHER FORMS 02-14-2017 [facility] OF ANGINA PHYSICIANS PECTORIS GROUP 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 K19796 ASHD [facility]GRATH 02-14-2017 [facility] W/UNS INC ANGINA PECTORIS R9439 ABNORMAL 02-14-2017 [facility] RESULT OTH PHYSICIANS CARDIOVASCU GROUP LR FUNCTION STUDY Z720 TOBACCO USE 02-14-2017 [facility] INC Z950 PRESENCE OF 02-14-2017 [facility] PACEMAKER INC R0602 SHORTNESS 02-11-2017 [facility] OF BREATH PHYSICIANS GROUP R0789 OTHER CHEST 02-11-2017 [facility] PAIN PHYSICIANS GROUP R9431 ABNORMAL 02-11-2017 [facility]ARD [facility] IOGRAM INC Z8679 PERSONAL 12-20-2016 [facility] DISEASES INC CIRCULATORY SYSTEM I2510 ASHD MCGRATH 10-04-2016 [facility] 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 [...] CHARLIE ACQUIRED UNSPECIFIED SITE K921 MELENA 02-09-2016 [facility] N390 URINARY 02-09-2016 [facility] [facility] INFECTION SITE NOT SPECIFIED 56099 PAIN IN 02-17-2015 [facility] JOINT, [place] [facility] 2724 OTHER AND 01-23-2015 [facility] UNSPECIFIED [place] [facility] HYPERLIPIDE HOS CHRISTOPHER 4019 UNSPECIFIED 01-23-2015 [facility] ESSENTIAL [place] HYPERTENSIO REGIONAL N HOS 67366 CORONARY 01-23-2015 [facility] ATHEROSCLER [place] [facility]IS [facility] CORONARY HOS ARTERY 52306 CLOSED 01-23-2015 [facility] DISLOCATION [place] OF REGIONAL SHOULDER HOS UNSPECIFIED SITE 29462 CLOSED 01-23-2015 [facility] DISLOCATION SERVI OF HUMERUS E8888 OTHER FALL 01-23-2015 [facility] N [facility] SERV[facility] V4501 CARDIAC 01-23-2015 [facility] PACEMAKER SNOW IN SITU REGIONAL HOS V4589 OTHER 01-23-2015 [facility] POSTSURGICA SNOW L STATUS REGIONAL OTHER HOS V5866 LONG-TERM 01-23-2015 [facility] USE OF SNOW ASPIRIN REGIONAL HOS V5869 LONG-TERM 01-23-2015 [facility] (CURRENT) SNOW USE OF REGIONAL OTHER HOS MEDICATIONS 4589 UNSPECIFIED 12-27-2014 [facility] HYPOTENSION 84291 OTHER 12-27-2014 [facility] FATIGUE 13795 DEHYDRATION 04-01-2014 [facility] 7962 ELEVATED BP 04-01-2014 [facility] & WITHOUT DX [facility] HYPERTENSIO N 9222 CONTUSION 06-06-2013 [facility] WALL V6709 FOLLOW-UP 06-06-2013 [facility] EXAMINATION RADIOLOGY FOLLOWING ASSOC OTHER SURGERY 9961 [facility] COMP 06-03-2013 [facility] OT RADIOLOGY VASCULAR ASS[place] DEVICE IMPL[place] [address] HEMATOMA 06-03-2013 [facility] COMPLICATIN SNOW G A REGIONAL PROCEDURE HOS NEC 13930 CHEST PAIN 06-01-2013 C[facility] AND UNSPECIFIED ELECTRO SPECIALIS 10585 ACUT WV 05-31-2013 [facility] SUBENDOCARD SNOW IAL INFARCT REGIONAL INIT EPIS HOS CARE 7850 UNSPECIFIED 05-31-2013 [facility] TACHYCARDIA [facility] V169 FAMILY 05-31-2013 [facility] HISTORY OF SNOW UNSPECIFIED REGIONAL MALIGNANT HOS NEOPLASM V173 FAMILY 05-31-2013 [facility] HISTORY OF SNOW ISCHEMIC REGIONAL HEART HOS DISEASE 32656 ACUTE 05-30-2013 [facility] INFARCT SPITALIS UNSPEC SITE INIT EPIS CARE 4011 ESSENTIAL 05-11-2013 [facility], B[facility] ASSOCIATE Results Labs Lab Lab Date Result Refere Interp Status Commen Order Detail nces retati t Range on Urinalysis complete W Reflex Culture panel - Urine (02-22-2016 13:38) Comment: er 3 Comment: Specifi = 1.025 1.005 complet c 016 TO ed gravity 13:38 1.030 of Urine pH of = 6.0 4.6 TO complet Urine 016 8.0 ed by Test 13:38 strip Protein NEGATIV complet 016 E ed [Presen 13:38 ce] in Urine by Test strip Ketones NEGATIV complet 016 E ed [Presen 13:38 ce] in Urine by Test strip Nitrite NEGATIV complet 016 E ed [Presen 13:38 ce] in Urine by Test strip Glucose NEGATIV complet 016 E ed [Presen 13:38 ce] in Urine Bilirub 1 + complet in.tota 016 ed l 13:38 [Presen ce] in Urine by Test strip Hemoglo NEGATIV complet bin 016 E ed [Presen 13:38 ce] in Urine by Test strip Leukocy NEGATIV complet te 016 E ed esteras 13:38 e [Presen ce] in Urine by Test strip Urobili = 2.0 0.0 TO complet nogen 016 EU/DL 0.2 ed [Mass/v 13:38 olume] in Urine by Test strip Color YELLOW complet of 016 EU/DL ed Urine 13:38 Clarity CLEAR complet of 016 EU/DL ed Urine 13:38 Drugs identified in Urine by Screen method (02-22-2016 13:38) Comment: er 3 duvall Comment: Ampheta [id number] complet mine 016 09 ed cutoff 13:38 NEGATIV [Mass/v E SCT olume] NEGATIV in E Urine for Screen method Cocaine [id number] complet cutoff 016 09 ed 13:38 NEGATIV [Mass/v E SCT olume] NEGATIV in E Urine for Screen method Tetrahy [id number] complet drocann 016 09 ed abinol 13:38 NEGATIV [Presen E SCT ce] in NEGATIV Urine E by Screen method Methamp [id number] complet hetamin 016 09 ed e 13:38 NEGATIV cutoff E SCT [Mass/v NEGATIV olume] E in Urine for Screen method Opiates [id number] complet tested 016 09 ed for in 13:38 NEGATIV Urine E SCT by NEGATIV Screen E method Nominal Phencyc [id number] complet lidine 016 09 ed [Presen 13:38 NEGATIV ce] in E SCT Urine NEGATIV by E Screen method Benzodi [id number] complet azepine 016 09 ed s 13:38 NEGATIV cutoff E SCT [Mass/v NEGATIV olume] E in Urine for Screen method Tricycl [id number] complet ic 016 09 ed antidep 13:38 NEGATIV ressant E SCT s NEGATIV tested E for in Urine by Screen method Nominal Barbitu [id number] complet rates 016 09 ed cutoff 13:38 NEGATIV [Mass/v E SCT olume] NEGATIV in E Urine for Screen method Methado [id number] complet ne 016 09 ed cutoff 13:38 NEGATIV [Mass/v E SCT olume] NEGATIV in E Urine for Screen method Supervi [id number] complet sor 016 4 ed review 13:38 POSITIV of E SCT results positiv e Supervi [id number] complet sor 016 297 ed review 13:38 positiv of e results Supervi 12 - complet sor 016 2016 ed review 13:38 positiv of e results CBC W Reflex Manual Differential panel - Blood (02-22-2016 13:15) Comment: er 3 anabelle Comment: Platele = 207 130 TO complet ts 016 10*3/ul 450 ed [#/volu 13:15 me] in Blood by Automat ed count Leukocy = 6.70 4.7 TO complet tracey 016 10*3/UL 10.8 ed [#/volu 13:15 me] in Blood Neutrop = 74.0 43 TO complet hils/10 016 % 65 ed 0 13:15 leukocy tracey in Blood by Automat ed count Lymphoc = 16.1 20.5 TO complet ytes/10 016 % 45.5 ed 0 13:15 leukocy tracey in Blood by Automat ed count Monocyt = 7.6 % 5.5 TO complet es/100 016 11.7 ed leukocy 13:15 tracey in Blood by Automat ed count Eosinop = 1.9 % 0.9 TO complet hils/10 016 2.9 ed 0 13:15 leukocy tracey in Blood Basophi = 0.1 % 0.2 TO complet ls/Leuk 016 1.0 ed ocytes 13:15 [Pure number fractio n] in Blood by Automat ed count Granulo = 0.3 % 0 TO complet cytes 016 0.5 ed Immatur 13:15 e/100 leukocy tracey in Blood by Automat ed count Complet = 0.0 % 0 TO complet e blood 016 0.2 ed count 13:15 (hemogr am) panel - Blood by Automat ed count Neutrop = [...] me] in Blood by Automat ed count Nucleat = 0.00 0.0 TO complet ed 016 10*3 0.012 ed erythro 13:15 cytes [#/volu me] in Blood by Automat ed count Erythro = 4.47 4.70 TO complet cytes 016 10*6UL 6.10 ed [#/volu 13:15 me] in Blood Hemoglo = 14.1 14 TO complet bin 016 G/DL 18 ed A/Hemog 13:15 lobin.t otal in Blood Hematoc = 42.3 42 TO complet rit 016 % 52 ed [Volume 13:15 Fractio n] of Blood by Automat ed count CBC W = 94.6 80 TO complet Auto 016 fl 94 ed Differe 13:15 ntial panel - Blood CBC W = 31.5 27 TO complet Auto 016 pg 31 ed Differe 13:15 ntial panel - Blood CBC W = 33.3 33 TO complet Auto 016 g/dl 37 ed Differe 13:15 ntial panel - Blood Erythro = 46.2 35.1 TO complet cyte 016 fL 43.9 ed distrib 13:15 ution width [Ratio] by Automat ed count Erythro = 13.2 11.5 TO complet cyte 016 % 14.5 ed distrib 13:15 ution width [Ratio] by Automat ed count CBC W = 10.6 7.1 TO complet Auto 016 fl 10.4 ed Differe 13:15 ntial panel - Blood Acetaminophen [Mass/volume] in Blood (02-22-2016 13:15) Comment: er 3 duvall Comment: Acetami < 10 10 TO complet nophen 016 ug/mL 30 ed [Mass/v 13:15 olume] in Blood Ethanol [Mass/volume] in Blood (02-22-2016 13:15) Comment: er 3 duvall Comment: Ethanol < 10 0 TO 10 complet 016 mg/dL ed [Mass/v 13:15 olume] in Blood Troponin I.cardiac [Mass/volume] in Serum or Plasma (02-22-2016 13:15) Comment: er 3 duvall Comment: Troponi < 0.012 0 TO complet n 016 ng/ml 0.033 ed I.cardi 13:15 ac [Mass/v olume] in Serum or Plasma Comprehensive metabolic 2000 panel - Serum or Plasma (02-22-2016 13:15) Comment: er 3 duvall Comment: Calcium = 8.8 8.4 TO complet 016 mg/dL 10.2 ed [Mass/v 13:15 olume] correct ed for total protein in Serum or Plasma Glucose = 91 74 TO complet 016 mg/dL 106 ed [Mass/v 13:15 olume] in Serum or Plasma Urea = 15 9 TO 20 complet nitroge 016 mg/dL ed n 13:15 [Mass/v olume] in Blood Protein = 6.8 6.3 TO complet 016 g/dL 8.2 ed [Mass/v 13:15 olume] in Serum or Plasma Albumin = 3.7 3.5 TO complet 016 g/dL 5.0 ed [Mass/v 13:15 olume] in Serum or Plasma Bilirub = 0.8 0.2 TO complet in 016 mg/dL 1.3 ed direct 13:15 and total panel [Mass/v olume] - Serum or Plasma Alkalin = 75 38 TO complet e 016 U/L 126 ed phospha 13:15 tase [Enzyma tic activit y/volum e] in Serum or Plasma Sodium = 142 137 TO complet and 016 mmol/L 145 ed Potassi 13:15 um panel [Moles/ volume] - Serum or Plasma Sodium = 3.7 3.4 TO complet and 016 mmol/L 5.0 ed Potassi 13:15 um panel [Moles/ volume] - Serum or Plasma Chlorid = 106 98 TO complet e 016 mmol/L 107 ed [Moles/ 13:15 volume] in Serum or Plasma Carbon = 27 22 TO complet dioxide 016 mmol/L 30 ed , total 13:15 [Moles/ volume] in Blood Creatin = 1.12 0.66 TO complet ine 016 mg/dL 1.25 ed [Mass/v 13:15 olume] in Blood Calcula = 70 complet adina and 016 mg/dL ed 13:15 derived values (set) Asparta = 16 17 TO complet te 016 U/L 59 ed aminotr 13:15 ansfera se [Enzyma tic activit y/volum e] in Serum or Plasma Alanine = 31 21 TO complet 016 U/L 72 ed aminotr 13:15 ansfera se [Enzyma tic activit y/volum e] in Serum or Plasma Anion = 9.1 8.0 TO complet gap in 016 mmol/L 16.0 ed Serum 13:15 or Plasma Calcula = 1.2 1.1 TO complet adina and 016 g/dL 2.5 ed 13:15 derived values (set) Thyrotropin [Mass/volume] in Serum or Plasma (02-22-2016 13:15) Comment: er 3 duvall Comment: Thyrotr = 1.26 0.465 complet opin 016 uIU/mL TO ed [Mass/v 13:15 4.680 olume] in Serum or Plasma Cobalamin (Vitamin B12) [Mass or Moles/volume] in Serum (02-22-2016 13:15) Comment: er 3 duvall Comment: Cobalam = 308 239 TO complet in 016 pg/mL 931 ed (Vitami 13:15 n B12) [Mass or Moles/v olume] in Serum Folate [Mass/volume] in Serum or Plasma (02-22-2016 13:15) Comment: er 3 duvall Comment: Folate = 9.78 2.76 TO complet [Mass/v 016 ng/mL 20.00 ed olume] 13:15 in Serum or Plasma Salicylates [Mass/volume] in Blood (02-22-2016 13:15) Comment: er 3 anabelle Comment: Salicyl < 1.0 2.0 TO complet ates 016 mg/dL 20.0 ed [Mass/v 13:15 olume] in Blood CBC W Reflex Manual Differential panel - Blood (02-09-2016 06:09) Comment: er-tr enedelia Comment: Leukocy = 9.49 4.7 TO complet tracey 016 10*3/UL 10.8 ed [#/volu 06:09 me] in Blood Neutrop = 63.9 43 TO complet hils/10 016 % 65 ed 0 06:09 leukocy tracey in Blood by Automat ed count Lymphoc = 24.1 20.5 TO complet ytes/10 016 % 45.5 ed 0 06:09 leukocy tracey in Blood by Automat ed count Monocyt = 7.6 % 5.5 TO complet es/100 016 11.7 ed leukocy 06:09 tracey in Blood by Automat ed count Eosinop = 3.7 % 0.9 TO complet hils/10 016 2.9 ed 0 06:09 leukocy tracey in Blood Basophi = 0.3 % 0.2 TO complet ls/Leuk 016 1.0 ed ocytes 06:09 [Pure number fractio n] in Blood by Automat ed count Granulo = 0.4 % 0 TO complet cytes 016 0.5 ed Immatur 06:09 e/100 leukocy tracey in Blood by Automat ed count Complet = 0.0 % 0 TO complet e blood 016 0.2 ed count 06:09 (hemogr am) panel - Blood by Automat ed count Neutrop = [...] in Blood by Automat ed count Eosinop 2 = 0.35 0.0 TO complet hils 016 10*3 0.2 ed [#/volu 06:09 me] in Blood by Automat ed count Basophi = 0.03 0.0 TO complet ls 016 10*3 0.1 ed [#/volu 06:09 me] in Blood by Automat ed count Granulo 2 = 0.04 0.01 TO complet cytes 016 10*3 0.02 ed Immatur 06:09 e [#/volu me] in Blood by Automat ed count Nucleat 2 = 0.00 0.0 TO complet ed 016 10*3 0.012 ed erythro 06:09 cytes [#/volu me] in Blood by Automat ed count Erythro = 4.96 4.70 TO complet cytes 016 10*6UL 6.10 ed [#/volu 06:09 me] in Blood Hemoglo = 15.8 14 TO complet bin 016 G/DL 18 ed A/Hemog 06:09 lobin.t otal in Blood Hematoc = 46.9 42 TO complet rit 016 % 52 ed [Volume 06:09 Fractio n] of Blood by Automat ed count CBC W = 94.6 80 TO complet Auto 016 fl 94 ed Differe 06:09 ntial panel - Blood CBC W = 31.9 27 TO complet Auto 016 pg 31 ed Differe 06:09 ntial panel - Blood CBC W = 33.7 33 TO complet Auto 016 g/dl 37 ed Differe 06:09 ntial panel - Blood Erythro = 47.4 35.1 TO complet cyte 016 fL 43.9 ed distrib 06:09 ution width [Ratio] by Automat ed count Erythro = 13.5 11.5 TO complet cyte 016 % 14.5 ed distrib 06:09 ution width [Ratio] by Automat ed count Platele = 208 130 TO complet ts 016 10*3/ul 450 ed [#/volu 06:09 me] in Blood by Automat ed count CBC W = 10.4 7.1 TO complet Auto 016 fl 10.4 ed Differe 06:09 ntial panel - Blood Urinalysis complete W Reflex Culture panel - Urine (02-09-2016 06:09) Comment: er-tr enedelia Comment: pH of = 6.0 4.6 TO complet Urine 016 8.0 ed by Test 06:09 strip Protein TRACE complet 016 ed [Presen 06:09 ce] in Urine by Test strip Ketones NEGATIV complet 016 E ed [Presen 06:09 ce] in Urine by Test strip Nitrite NEGATIV complet 016 E ed [Presen 06:09 ce] in Urine by Test strip Glucose NEGATIV complet 016 E ed [Presen 06:09 ce] in Urine Specifi >= 1.005 complet c 016 1.030 TO ed gravity 06:09 1.030 of Urine Bilirub NEGATIV complet in.tota 016 E ed l 06:09 [Presen ce] in Urine by Test strip Hemoglo NEGATIV complet bin 016 E ed [Presen 06:09 ce] in Urine by Test strip Leukocy TRACE complet te 016 ed esteras 06:09 e [Presen ce] in Urine by Test strip Urobili = 1.0 0.0 TO complet nogen 016 EU/DL 0.2 ed [Mass/v 06:09 olume] in Urine by Test strip Color YELLOW complet of 016 EU/DL ed Urine 06:09 Clarity HAZY complet of 016 EU/DL ed Urine 06:09 Microsc 5 - 10 0 TO 4 complet opic 016 /HPF ed observa 06:09 tion [Identi fier] in Urine sedimen t by Light microsc opy Microsc 0 - 2 2 TO 4 complet opic 016 /lpf ed observa 06:09 tion [Identi fier] in Urine sedimen t by Light microsc opy Comment: C\T\S TO FOLLOW Hemoglobin.gastrointestinal [Presence] in Stool (02-09-2016 06:09) Comment: er-tr enedelia Comment: Hemoglo [id number] NEGATIV complet bin.gas 016 4 E ed trointe 06:09 POSITIV stinal E SCT [Presen ce] in Stool Supervi [id number] POSITIV complet sor 016 4 E ed review 06:09 POSITIV of E SCT results Supervi [id number] complet sor 016 4 ed review 06:09 of results Supervi complet sor 016 ed review 06:09 of results Comprehensive metabolic 2000 panel - Serum or Plasma (02-09-2016 06:09) Comment: er-hardy mcdaniels Comment: Calcula = 1.3 1.1 TO complet adina and 016 g/dL 2.5 ed 06:09 derived values (set) Calcium = 9.4 8.4 TO complet 016 mg/dL 10.2 ed [Mass/v 06:09 olume] correct ed for total protein in Serum or Plasma Glucose = 98 74 TO complet 016 mg/dL 106 ed [Mass/v 06:09 olume] in Serum or Plasma Urea = 19 9 TO 20 complet nitroge 016 mg/dL ed n 06:09 [Mass/v olume] in Blood Protein = 7.9 6.3 TO complet 016 g/dL 8.2 ed [Mass/v 06:09 olume] in Serum or Plasma Albumin = 4.4 3.5 TO complet 016 g/dL 5.0 ed [Mass/v 06:09 olume] in Serum or Plasma Bilirub = 0.8 0.2 TO complet in 016 mg/dL 1.3 ed direct 06:09 and total panel [Mass/v olume] - Serum or Plasma Alkalin = 71 38 TO complet e 016 U/L 126 ed phospha 06:09 tase [Enzyma tic activit y/volum e] in Serum or Plasma Sodium = 143 137 TO complet and 016 mmol/L 145 ed Potassi 06:09 um panel [Moles/ volume] - Serum or Plasma Sodium = 4.5 3.4 TO complet and 016 mmol/L 5.0 ed Potassi 06:09 um panel [Moles/ volume] - Serum or Plasma Chlorid = 105 98 TO complet e 016 mmol/L 107 ed [Moles/ 06:09 volume] in Serum or Plasma Carbon = 24 22 TO complet dioxide 016 mmol/L 30 ed , total 06:09 [Moles/ volume] in Blood Creatin = 1.15 0.66 TO complet ine 016 mg/dL 1.25 ed [Mass/v 06:09 olume] in Blood Calcula = 68 complet adina and 016 mg/dL ed 06:09 derived values (set) Asparta = 23 17 TO complet te 016 U/L 59 ed aminotr 06:09 ansfera se [Enzyma tic activit y/volum e] in Serum or Plasma Alanine = 31 21 TO complet 016 U/L 72 ed aminotr 06:09 ansfera se [Enzyma tic activit y/volum e] in Serum or Plasma Anion = 13.8 8.0 TO complet gap in 016 mmol/L 16.0 ed Serum 06:09 or Plasma Troponin I.cardiac [Mass/volume] in Serum [...] 08:25) Comment: er tx nfd Comment: Microsc 24-2 0 - 2 2 TO 4 complet opic 016 /lpf ed observa 08:25 tion [Identi fier] in Urine sedimen t by Light microsc opy Microsc 24-2 0 - 2 0 TO 5 complet opic 016 /HPF ed observa 08:25 tion [Identi fier] in Urine sedimen t by Light microsc opy Clarity 01-26-2 SL complet of 016 CLOUDY ed Urine 08:25 EU/DL Color 2 YELLOW complet of 016 EU/DL ed Urine 08:25 Urobili 2 = 1.0 0.0 TO complet nogen 016 EU/DL 0.2 ed [Mass/v 08:25 olume] in Urine by Test strip Leukocy 01-26-2 NEGATIV complet te 016 E ed esteras 08:25 e [Presen ce] in Urine by Test strip Hemoglo 01-26-2 TRACE complet bin 016 ed [Presen 08:25 ce] in Urine by Test strip Bilirub 01-26-2 NEGATIV complet in.tota 016 E ed l 08:25 [Presen ce] in Urine by Test strip Glucose 01-26-2 NEGATIV complet 016 E ed [Presen 08:25 ce] in Urine Nitrite 01-26-2 NEGATIV complet 016 E ed [Presen 08:25 ce] in Urine by Test strip Ketones 01-26-2 NEGATIV complet 016 E ed [Presen 08:25 ce] in Urine by Test strip Protein 01-26-2 NEGATIV complet 016 E ed [Presen 08:25 ce] in Urine by Test strip pH of 2 = 5.5 4.6 TO complet Urine 016 8.0 ed by Test 08:25 strip Specifi 01-26-2 >= 1.005 complet c 016 1.030 TO ed gravity 08:25 1.030 of Urine CBC W Reflex Manual Differential panel - Blood (01-27-2016 08:25) Comment: er tx nfd Comment: CBC W 24-2 = 10.6 7.1 TO complet Auto 016 fl 10.4 ed Differe 08:25 ntial panel - Blood Platele 06-24-2 = 206 130 TO complet ts 016 [...] in Blood by Automat ed count Monocyt 06-24-2 = 0.58 0.3 TO complet es 016 [...] review 08:25 positiv of e results Supervi [id number] complet sor 016 293 ed review 08:25 positiv of e results Supervi [id number] complet sor 016 4 ed review 08:25 POSITIV of E SCT results positiv e Methado [id number] complet ne 016 09 ed cutoff 08:25 NEGATIV [Mass/v E SCT olume] NEGATIV in E Urine for Screen method Barbitu [id number] complet rates 016 09 ed cutoff 08:25 NEGATIV [Mass/v E SCT olume] NEGATIV in E Urine for Screen method Tricycl [id number] complet ic 016 09 ed antidep 08:25 NEGATIV ressant E SCT s NEGATIV tested E for in Urine by Screen method Nominal Benzodi [id number] complet azepine 016 09 ed s 08:25 NEGATIV cutoff E SCT [Mass/v NEGATIV olume] E in Urine for Screen method Phencyc [id number] complet lidine 09 ed [Presen 08:25 NEGATIV ce] in E SCT Urine NEGATIV by E Screen method Opiates [id number] complet tested 016 09 ed for in 08:25 NEGATIV Urine E SCT by NEGATIV Screen E method Nominal Methamp [id number] complet hetamin 016 09 ed e 08:25 NEGATIV cutoff E SCT [Mass/v NEGATIV olume] E in Urine for Screen method Tetrahy [id number] complet drocann 09 ed abinol 08:25 NEGATIV [Presen E SCT ce] in NEGATIV Urine E by Screen method Cocaine [id number] complet cutoff 016 09 ed 08:25 NEGATIV [Mass/v E SCT olume] NEGATIV in E Urine for Screen method Ampheta [id number] complet mine 016 09 ed cutoff 08:25 NEGATIV [Mass/v E SCT olume] NEGATIV in E Urine for Screen method Procedures Procedure [place] [address] [facility] HEAD/BRAI 7 MEDICAL N W/O IMAGING CONTRAST ASS MATERIAL RADIOLOGI [address] [place] ZIMMERMAN C 7 MEDICAL EXAMINATI IMAGING ON CHEST ASS SINGLE VIEW FRONTAL NONEMERG A0120 FEDERATED FEDERATED TRNSPRT: 7 [facility] TRANSPORT TRANSPORT MTN ATION SER ATION SER AREA/OT SYS CATHETER C1725 [facility] TRANSLUMI 7 [facility] NAL INC INC ANGIOPLAS TY NON-LASER GUIDE C1769 [facility] WIRE 7 [facility] INC INC STENT C1876 [facility] NON-COATE 7 [facility] D/NON-COV INC INC ERED W/DELIVER Y SYSTEM COAGULATI 84012 [facility] ON TIME 7 [facility] [place] [address] [facility] TRLUML 7 PHYSICIAN CORONARY S GROUP STENT W/ANGIO ONE ART/BRNCH BASIC 82259 [facility] METABOLIC 7 [facility] PANEL INC INC CALCIUM TOTAL BLOOD 14064 [facility]ES COUNT 7 [facility] COMPLETE INC INC AUTO&AUTO DIFRNTL WBC IV DOP [id number] [facility]ES PRITI&/OR 7 [facility] PRESS INC INC C/JEN RSRV CALLY 1ST VSL ECG 08929 [facility]ES ROUTINE 7 [facility] ECG INC INC W/LEAST 12 LDS TRCG ONLY W/O I&R ECG [id number] [facility] SRIVASTAV ROUTINE 7 PHYSICIAN A ECG S GROUP W/LEAST 12 LDS I&R ONLY NONEMERG [id number] [facility] TRNSPRT: 7 [facility] TRANSPORT MTN ATION SER ATION SER AREA/OTH SYS NONEMERG [id number] [facility] TRNSPRT: 7 [facility] TRANSPORT MTN ATION SER ATION SER AREA/OT SYS MYOCARDIA [id number] [facility] [place] SRIVASTAV L SPECT 7 PHYSICIAN A MULTIPLE S GROUP STUDIES TECHNETIU [id number] LONG Vera TC-99M 7 [facility] TETROFOSM INC INC IN DX PER STUDY DOSE ECHO 02878 [facility]ES TTHRC R-T 7 [facility] 2D INC INC W/WOM-MOD E COMPL SPEC&COLR D CV STRS 55223 [facility] TST 7 [facility] XERS&/OR INC INC RX CONT ECG TRCG ONLY ECG 22251 [facility] ROUTINE 7 [facility] ECG INC INC W/LEAST 12 LDS TRCG ONLY W/O I&R NONEMERG [id number] FEDERATED FEDERATED TRNSPRT: 7 [facility] TRANSPORT TRANSPORT MTN ATION SER ATION SER AREA/OTH SYS SBSQ 55488 [facility] [place] [facility] CARE/DAY E/M STABLE 10 MIN URNLS DIP 71818 [facility] STICK/TAB LET REAGENT AUTO MICROSCOP Y COMPREHEN 86548 [facility] SIVE 6 [facility]P INC [facility] METABOLIC PANEL COLLECTIO 87401 [facility] N VENOUS 6 [facility]P INC [facility] BLOOD VENIPUNCT URE BLOOD 17598 [facility] COUNT 6 [facility] COMPLETE AUTO&AUTO DIFRNTL WBC CULTURE 54458 [facility] BACTERIAL 6 [facility]P INC HOSP INC QUANTTATI VE COLONY COUNT URINE CULTURE 23672 [facility] TYPING 6 HOSP INC HOSP INC IMMUNOLOG IC OTH/THN IMMUNOFLU ORES BLOOD 86228 [facility] OCCULT 6 HOSP INC HOSP INC FECAL HGB DETER IA QUAL FECES 1-3 CT UPPER 52985 [facility] EXTREMITY 5 [place] W/[place]IOLOG[place] [address] [facility] SHOULDER 5 [facility] CUM[facility]AN DISLC D D W/MANIPUL REGIONAL REGIONAL [place]ION [place] [address] [facility] 5 [facility] CAR DISLC EMERGENCY W/MANIPUL SERVI ATION W/O ANES THER 76598 [facility] PIERSON PROPH/DX 5 [facility] CUM[facility] NJX IV D D PUSH REGIONAL REGIONAL SINGLE/1S HOS HOS T SBST/DRUG RADEX 08145 [facility] YOUNG[facility] BALDEMAR SHOULDER 5 1 VIEW RADIOLOGY ASSOC RADEX 46386 [facility] BALDEMAR SHOULDER 5 COMPLETE RADIOLOGY MINIMUM 2 ASSOC VIEWS CLOSED 7971 [facility] REDUCTION 5 CUMBER[place]AN CUMBERLAN OF D D DISLOCATI REGIONAL [place] [address] [facility] INFUSION 5 HOSP INC HOSP INC HYDRATION INITIAL 31 MIN-1 HOUR COLLECTIO 14352 [facility] N VENOUS 4 HOSP INC HOSP INC BLOOD VENIPUNCT URE COMPREHEN 94827 [facility] SIVE 4 HOSP INC HOSP INC METABOLIC PANEL BLOOD 70123 [facility] COUNT 4 HOSP INC HOSP INC COMPLETE AUTO&AUTO DIFRNTL WBC BLOOD 25280 [facility] COUNT 4 HOSP INC HOSP INC COMPLETE AUTO&AUTO DIFRNTL WBC RADIOLOGI 71229 [facility] SKEENS C 4 IMAGING & MAIKOL EXAMINATI ON CHEST [place] [address] [facility] TROPONIN 4 HOSP INC HOSP INC QUANTITAT KALEB CREATINE 77792 [facility] KINASE 4 HOSP INC HOSP INC TOTAL COMPREHEN 94695 [facility] SIVE 4 HOSP INC HOSP INC METABOLIC PANEL COLLECTIO 88170 [facility] N VENOUS 4 HOSP INC HOSP INC BLOOD VENIPUNCT URE CREATINE 46901 [facility] KINASE MB 4 HOSP INC HOSP INC FRACTION ONLY DUP-SCAN 06104 LEIA IBARRA LXTR 3 ANTOINE ART/ARTL RADIOLOGY BPGS ASSOC UNI/LMTD STUDY DUP-SCAN 87988 [facility] LXTR 3 CUMBER[place]AN CUM[place] ART/ARTL D D BPGS REGIONAL REGIONAL UNI/LMTD HOS HOS STUDY ANGIOCARD 8853 [facility] IOGRAPHY 3 CUM[place]AN CUMBER[place]AN OF LEFT D D HEART REGIONAL REGIONAL STRUCTURE HOS HOS S CORONARY 8856 [facility] ARTERIOGR 3 [place]UM[place] APHY D D USING TWO REGIONAL REGIONAL HOS HOS CATHETERS LEFT 3722 [facility] HEART 3 [place] CUMBER[place]AN CARDIAC D D CATHETERI REGIONAL REGIONAL ZATION HOS HOS CATH PLMT 775[address] [facility] L HRT & 3 AND KISHORE ARTS ELECTRO W/NJX & SPECIALIS ANGIO IMG S&I RADIOLOGI 64415 LEIA MCDERMOTT C 3 EXAMINATI RADIOLOGY ON CHEST ASSOC SINGLE VIEW FRONTAL INITIAL 48362 [facility] 3 AND KISHORE CARE/DAY ELECTRO 70 SPECIALIS MINUTES RADIOLOGI 27793 [facility] C EXAM 3 HOSP INC HOSP INC CHEST 2 VIEWS [place]ONTAL&[place] [address] [facility] TROPONIN 3 HOSP INC HOSP INC QUANTITAT KALEB CREATINE 83834 [facility] KINASE 3 HOSP INC HOSP INC TOTAL ECG 19422 [facility] ROUTINE 3 HOSP INC HOSP INC ECG W/LEAST 12 LDS TRCG ONLY W/O I&R BLOOD 38073 [facility] COUNT 3 HOSP INC HOSP INC COMPLETE AUTO&AUTO DIFRNTL WBC COLLECTIO 79667 [facility] N VENOUS 3 HOSP INC HOSP INC BLOOD VENIPUNCT URE CREATINE 36071 [facility] KINASE MB 3 HOSP INC HOSP INC FRACTION ONLY COMPREHEN 32819 [facility] SIVE 3 HOSP INC HOSP INC METABOLIC PANEL OBSERVATI 32438 [facility] TIMI COR ON[facility]INPATI 3 [facility] S CARE [address] [place] [address] [facility] INFUSION 3 HOSP INC HOSP INC HYDRATION INITIAL 31 MIN-1 HOUR CREATINE 74175 [facility] KINASE MB 3 HOSP INC HOSP INC FRACTION ONLY COLLECTIO 91261 [facility] N VENOUS 3 HOSP INC HOSP INC BLOOD VENIPUNCT URE COMPREHEN 03590 [facility] SIVE 3 HOSP INC HOSP INC METABOLIC PANEL BLOOD 83999 [facility] COUNT 3 HOSP INC HOSP INC COMPLETE AUTO&AUTO DIFRNTL WBC RADIOLOGI 15790 PEMA C 3 IMAGING & MAIKOL EXAMINATI ON CHEST [place] [address] [facility] TROPONIN 3 HOSP [facility] HOSP INC QUANTITAT KALEB CREATINE 71255 [facility] KINASE 3 HOSP INC HOSP INC TOTAL ECG 57992 [facility] ROUTINE 3 HOSP [facility] HOSP INC ECG W/LEAST 12 LDS TRCG ONLY W/O I&R Encounters Encounter Start End Date Code Location Performer Type Date [facility] LONG - 7 7 [facility] 11909 [facility] 7 7 PHYSICIAN A T VISIT S GROUP 40 MINUTES [facility] LONG - 7 7 [facility] LONG - 7 7 [facility] LONG - 7 7 [facility] T OFFICE 08149 M[facility] M[facility] OUTPATIEN 6 6 [facility] 20 MINUTES CRIT[facility] ACCESS 6 6 HOSP [facility] EMERGENCY 16025 EMERGENCY BUHL II 6 6 [facility] JAM DEPARTMEN T VISIT CORPORATI HIGH/URGE NT SEVERITY EMERGENCY 58542 [facility] 6 6 HOSP INC DEPARTMEN T VISIT MODERATE SEVERITY [facility]OSP[facility] - 5 5 [facility] OUTPATIEN D T REGIONAL HOS EMERGENCY 79555 [facility] DEPT 5 5 [place] VISIT D HIGH REGIONAL SEVERITY& HOS THREAT [facility] PIERSON - 5 5 [place] OUTPATIEN D T REGIONAL HOS EMERGENCY 58444 [facility] 5 [facility] DEPARTMEN EMERGENCY T VISIT SERVI MODERATE SEVERITY EMERGENCY 60366 [facility] 5 5 HOSP INC DEPARTMEN T VISIT MODERATE SEVERITY EMERGENCY 58799 EMERGENCY [facility] 5 5 [facility] MARYELLEN DEPARTMEN T VISIT CORPORATI HIGH/URGE NT SEVERITY CRITICAL [facility] ACCESS 5 5 HOSP [facility] CRITICAL [facility] ACCESS 4 4 HOSP INC HOSPITAL EMERGENCY 74422 [facility] 4 4 HOSP INC DEPARTMEN T VISIT MODERATE SEVERITY EMERGENCY 47090 EMERGENCY [facility] 4 4 [facility]OVER[facility] DEPARTMEN T VISIT CORPORATI HIGH/URGE NT SEVERITY EMERGENCY 83182 HERNANDEZ KILLIAN SHAH 3 3 MEDICAL DEPARTMEN GROUP, [facility] SE[facility] EMERGENCY 99891 [facility] 3 3 [place] DEPARTMEN D T VISIT REGIONAL HIGH/URGE HOS NT SEVERITY [facility] HOS EMERGENCY 40460 DC GONG 3 3 EMERGENCY GRE DEPARTMEN SERVICES T VISIT HIGH/URGE NT SEVERITY EMERGENCY 07841 [facility] 3 3 [place] DEPARTMEN D T VISIT REGIONAL LOW/MODER HOS SEVERITY [facility] - 3 3 [facility] INPATIENT D REGIONAL HOS EMERGENCY 76000 [facility] DEPT 3 3 HOSP INC VISIT HIGH SEVERITY& THREAT FUNCJ CRITICAL [facility] ACCESS 3 3 [facility]OSP [facility] OFFICE 17690 PRAKASH DUVALL OUTPATIEN 3 3 O MEDICAL DENNISE T VISIT 15 ASSOCIATE MINUTES EMERGENCY 34327 [facility] 3 3 HOSP INC DEPARTMEN T VISIT MODERATE SEVERITY EMERGENCY 39419 EMERGENCY [facility] 3 3 [facility]OVER[facility] DEPARTMEN T VISIT CORPORATI HIGH/URGE NT SEVERITY CRITICAL [facility] ACCESS 3 3 [facility]OSP [facility]
--- OUTSIDE RECORDS SUMMARY | 2017-05-17 00:18 | External Medical Summary Rpt | CCD ---
Author Author , ELSY Organization ELSY Address Unknown Phone [email or web address] Care Team Providers Care Engineering Manager Electronics Name Role Phone RHONDA ELLIS Unavailable Unavailable YOUNGER BALDEMAR, YOUNGER BALDEMAR Unavailable Unavailable BEINEKE, BEINEKE Unavailable Unavailable [facility] Unavailable Unavailable [facility], [facility] ZIMMERMAN, ZIMMERMAN Unavailable Unavailable BUSLER CAR, BUSLER Unavailable Unavailable CAR [facility] Unavailable Unavailable SPECIALIS, [facility] EUNICE KIMBERLEY, EUNICE Unavailable Unavailable KIMBERLEY YAZ MARYELLEN, YAZ Unavailable Unavailable MARYELLEN FEDERATED Unavailable Unavailable TRANSPORTATION SER, [facility] YODIT KISHORE, Unavailable Unavailable YODIT KISHORE [facility] Unavailable Unavailable INC, [facility], Unavailable Unavailable [facility] Unavailable Unavailable [facility], [facility] Unavailable Unavailable [facility]AL [facility]OS, [facility] KILLIAN ALYSSA, KILLIAN ALYSSA Unavailable Unavailable DUVALL II DENNISE, DUVALL Unavailable Unavailable II DENNISE [facility], Unavailable Unavailable PLL[facility], [facility] Unavailable Unavailable ASSOCIATE, [facility] TECHNICIAN STACEY SCHULTZ, STACEY Unavailable Unavailable [facility] Unavailable Unavailable [facility], [facility] GONG GRE, GONG Unavailable Unavailable [facility], [facility] Unavailable Unavailable KRISTIN, KRISTIN Unavailable Unavailable SKEENS MAIKOL, SKEENS Unavailable Unavailable [facility] DONTRELL, Unavailable Unavailable DONTRELL [facility], Unavailable Unavailable [facility] Unavailable [facility], [facility] WOODY II JAM, WOODY Unavailable Unavailable II JAM MEEKS CHARLIE, Unavailable Unavailable MEEKS CHARLIE MEEKS CHARLIE, Unavailable Unavailable MEEKS CHARLIE Purpose Continuity of Care Document - 05-11-2013 through 2016 Problems Code Diagnosis DOS Provider Status R42 DIZZINESS 03-05-2017 [facility] R079 CHEST PAIN 02-22-2017 [facility] R69 ILLNESS 02-21-2017 [facility] UNSPECIFIED TRANSPORTAT ION SER I10 ESSENTIAL 02-14-2017 [facility] HYPERTENSIO INC N I208 OTHER FORMS 02-14-2017 [facility] OF ANGINA PHYSICIANS PECTORIS GROUP N83335 [place] [place] 02-14-2017 [facility] COR ART PHYSICIANS W/OTH FORMS GROUP ANGINA PECTORIS [id number] [place] [place] 02-14-2017 [facility] W/UNS INC ANGINA PECTORIS R9439 ABNORMAL 02-14-2017 [facility] RESULT OTH PHYSICIANS CARDIOVASCU GROUP LR FUNCTION STUDY Z720 TOBACCO USE 02-14-2017 [facility] INC Z950 PRESENCE OF 02-14-2017 [facility] PACEMAKER INC R0602 SHORTNESS 02-11-2017 [facility] OF BREATH PHYSICIANS GROUP R0789 OTHER CHEST 02-11-2017 [facility] PAIN PHYSICIANS GROUP R9431 ABNORMAL 02-11-2017 [facility] ELECTROCARD [facility] IOGRAM INC Z8679 PERSONAL 12-20-2016 [facility] DISEASES INC CIRCULATORY SYSTEM I2510 [place] 10-04-2016 [facility] 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 M150 PRIMARY 10-04-2016 [facility] GENERALIZED OSTEOARTHRI TIS M2011 HALLUX 04-10-2016 MEEKS VALGUS CHARLIE ACQUIRED RIGHT FOOT M2012 HALLUX 04-10-2016 MEESK VALGUS CHARLIE ACQUIRED LEFT FOOT M2041 OTHER 04-10-2016 MEEKS HAMMER TOES CHARLIE ACQUIRED RIGHT FOOT M2042 OTHER 04-10-2016 [facility]EE[facility] HAMMER TOES CHARLIE ACQUIRED LEFT FOOT M2170 UNEQUAL 04-10-2016 [facility] LIMB LENGTH CHARLIE ACQUIRED UNSPECIFIED SITE K921 MELENA 02-09-2016 [facility] N390 URINARY 02-09-2016 [facility] INFECTION SITE NOT SPECIFIED 31861 PAIN IN 02-17-2015 [facility] JOINT, [place] [facility] 2724 OTHER AND 01-23-2015 [facility] UNSPECIFIED [place] [facility] HYPERLIPIDE HOS CHRISTOPHER 4019 UNSPECIFIED 01-23-2015 [facility] ESSENTIAL [place] HYPERTENSIO REGIONAL N HOS 89994 CORONARY 01-23-2015 [facility] ATHEROSCLER [place] OSIS [place] REGIONAL CORONARY HOS ARTERY 36382 CLOSED 01-23-2015 [facility] DISLOCATION [place] OF REGIONAL SHOULDER HOS UNSPECIFIED SITE 33769 CLOSED 01-23-2015 [facility]Y DISLOCATION SERVI OF HUMERUS E8888 OTHER FALL 01-23-2015 [facility] N EMERGENCY SERVI V4501 CARDIAC 01-23-2015 [facility] PACEMAKER [facility] IN SITU REGIONAL HOS V4589 OTHER 01-23-2015 [facility] POSTSURGICA [facility] L STATUS REGIONAL OTHER HOS V5866 LONG-TERM 01-23-2015 [facility] USE OF [facility] ASPIRIN REGIONAL HOS V5869 LONG-TERM 01-23-2015 [facility] (CURRENT) [facility] USE OF REGIONAL OTHER HOS MEDICATIONS 4589 UNSPECIFIED 12-27-2014 [facility] INC HYPOTENSION 32092 OTHER 12-27-2014 [facility] MALAISE AND HOSP INC FATIGUE 39487 DEHYDRATION 04-01-2014 [facility] INC 7962 ELEVATED BP 04-01-2014 [facility] & WITHOUT DX INTERVENTI HYPERTENSIO N 9222 CONTUSION 06-06-2013 [facility] WALL V6709 FOLLOW-UP 06-06-2013 [facility] EXAMINATION RADIOLOGY FOLLOWING ASSOC OTHER SURGERY 9961 [facility] COMP 06-03-2013 [facility] OT RADIOLOGY VASCULAR ASS[place] DEVICE IMPLANT&[place] [address] HEMATOMA 06-03-2013 [facility] COMPLICATIN [facility] G A REGIONAL PROCEDURE HOS NEC 61041 CHEST PAIN 06-01-2013 CARDIO AND UNSPECIFIED ELECTRO SPECIALIS 23406 ACUT OK 05-31-2013 [facility] SUBENDOCARD [facility] IAL INFARCT REGIONAL INIT EPIS HOS CARE 7850 UNSPECIFIED 05-31-2013 [facility] TACHYCARDIA ASSOC V169 FAMILY 05-31-2013 [facility] HISTORY OF [facility] UNSPECIFIED REGIONAL MALIGNANT HOS NEOPLASM V173 FAMILY 05-31-2013 [facility] ISCHEMIC REGIONAL HEART HOS DISEASE 86550 ACUTE 05-30-2013 [facility] INFARCT SPITALIS UNSPEC SITE INIT EPIS CARE 4011 ESSENTIAL 05-11-2013 [facility]OCI[facility] Results Labs Lab [...] 13:38) Comment: er 3 duvall Comment: Ampheta [id number] complet mine 016 09 ed cutoff 13:38 NEGATIV [Mass/v E SCT olume] NEGATIV in E Urine for Screen method Cocaine [id number] complet cutoff 016 09 ed 13:38 NEGATIV [Mass/v E SCT olume] NEGATIV in E Urine for Screen method Tetrahy [id number] complet drocann 016 09 ed abinol 13:38 NEGATIV [Presen E SCT ce] in NEGATIV Urine E by Screen method Methamp [id number] complet hetamin 016 09 ed e 13:38 NEGATIV cutoff E SCT [Mass/v NEGATIV olume] E in Urine for Screen method Opiates [id number] complet tested 016 09 ed for in 13:38 NEGATIV Urine E SCT by NEGATIV Screen E method Nominal Phencyc [id number] complet lidine 016 09 ed [Presen 13:38 NEGATIV ce] in E SCT Urine NEGATIV by E Screen method Benzodi [id number] complet azepine 016 09 ed s 13:38 NEGATIV cutoff E SCT [Mass/v NEGATIV olume] E in Urine for Screen method Tricycl [id number] complet ic 016 09 ed antidep 13:38 NEGATIV ressant E SCT s NEGATIV tested E for in Urine by Screen method Nominal Barbitu [id number] complet rates 016 09 ed cutoff 13:38 NEGATIV [Mass/v E SCT olume] NEGATIV in E Urine for Screen method Methado [id number] complet ne 016 09 ed cutoff 13:38 NEGATIV [Mass/v E SCT olume] NEGATIV in E Urine for Screen method Supervi [id number] complet sor 016 4 ed review 13:38 POSITIV of E SCT results positiv e Supervi [id number] complet sor 016 297 ed review 13:38 [...] (02-09-2016 06:09) Comment: er-tr enedelia Comment: Hemoglo [id number] NEGATIV complet bin.gas 016 4 E ed trointe 06:09 POSITIV stinal E SCT [Presen ce] in Stool Supervi [id number] POSITIV complet sor 016 4 E ed review 06:09 POSITIV of E SCT results Supervi [id number] complet sor 016 4 ed review 06:09 [...] review 08:25 positiv of e results Supervi [id number] complet sor 016 293 ed review 08:25 positiv of e results Supervi [id number] complet sor 016 4 ed review 08:25 POSITIV of E SCT results positiv e Methado [id number] complet ne 016 09 ed cutoff 08:25 NEGATIV [Mass/v E SCT olume] NEGATIV in E Urine for Screen method Barbitu [id number] complet rates 016 09 ed cutoff 08:25 NEGATIV [Mass/v E SCT olume] NEGATIV in E Urine for Screen method Tricycl [id number] complet ic 016 09 ed antidep 08:25 NEGATIV ressant E SCT s NEGATIV tested E for in Urine by Screen method Nominal Benzodi [id number] complet azepine 016 09 ed s 08:25 NEGATIV cutoff E SCT [Mass/v NEGATIV olume] E in Urine for Screen method Phencyc [id number] complet lidine 09 ed [Presen 08:25 NEGATIV ce] in E SCT Urine NEGATIV by E Screen method Opiates [id number] complet tested 016 09 ed for in 08:25 NEGATIV Urine E SCT by NEGATIV Screen E method Nominal Methamp [id number] complet hetamin 016 09 ed e 08:25 NEGATIV cutoff E SCT [Mass/v NEGATIV olume] E in Urine for Screen method Tetrahy [id number] complet drocann 09 ed abinol 08:25 NEGATIV [Presen E SCT ce] in NEGATIV Urine E by Screen method Cocaine [id number] complet cutoff 016 09 ed 08:25 NEGATIV [Mass/v E SCT olume] NEGATIV in E Urine for Screen method Ampheta [id number] complet mine 016 09 ed cutoff 08:25 NEGATIV [Mass/v E SCT olume] NEGATIV in E Urine for Screen method Procedures Procedure [place] [address] [facility] HEAD/BRAI 7 MEDICAL N W/O IMAGING CONTRAST ASS MATERIAL RADIOLOGI [address] [place] ZIMMERMAN C 7 MEDICAL EXAMINATI IMAGING ON CHEST ASS SINGLE VIEW FRONTAL NONEMERG A0120 FEDERATED FEDERATED TRNSPRT: 7 MINI-BUS TRANSPORT TRANSPORT MTN ATION SER ATION SER AREA/OT SYS CATHETER C1725 [facility] TRANSLUMI 7 [facility]OSP NAL INC INC ANGIOPLAS TY NON-LASER GUIDE C1769 [facility] WIRE 7 [facility] INC INC STENT C1876 LONG [facility] NON-COATE 7 [facility] D/NON-COV INC INC ERED W/DELIVER Y SYSTEM COAGULATI 50580 LONG AL[facility]ES ON TIME 7 [facility] ACTIVATED INC INC PRQ [address] [facility] TRLUML 7 PHYSICIAN CORONARY S GROUP STENT W/ANGIO ONE ART/BRNCH BASIC 24263 [facility] METABOLIC 7 [facility]OSP PANEL INC INC CALCIUM TOTAL BLOOD 04800 [facility] COUNT 7 [facility] HOSP COMPLETE INC INC AUTO&AUTO DIFRNTL WBC IV DOP 22486 [facility] PRITI&/OR 7 [facility] PRESS INC INC C/JEN RSRV CALLY 1ST VSL ECG 99212 LONG [facility] ROUTINE 7 [facility] ECG INC INC W/LEAST 12 LDS TRCG ONLY W/O I&R ECG 21257 [facility] SRIVASTAV ROUTINE 7 PHYSICIAN A ECG S GROUP W/LEAST 12 LDS I&R ONLY NONEMERG A0120 FEDERATED FEDERATED TRNSPRT: 7 [facility]I-BUS TRANSPORT TRANSPORT MTN ATION SER ATION SER AREA/OTH SYS NONEMERG A0120 FEDERATED FEDERATED TRNSPRT: 7 MINI-BUS TRANSPORT TRANSPORT MTN ATION SER ATION SER AREA/OT SYS MYOCARDIA 78174 [facility] SRIVASTAV L SPECT 7 PHYSICIAN A MULTIPLE S GROUP STUDIES TECHNETIU A9502 LONG Vera TC-99M 7 MEM HOSP [facility] TETROFOSM INC INC IN DX PER STUDY DOSE ECHO 92596 LONG [facility]ES TTHRC R-T 7 [facility] HOSP 2D INC INC W/WOM-MOD E COMPL SPEC&COLR D CV STRS 66270 [facility] TST 7 MEM HOSP MEM HOSP XERS&/OR INC INC RX CONT ECG TRCG ONLY ECG 49085 [facility] ROUTINE 7 MEM HOSP MEM HOSP ECG INC INC W/LEAST 12 LDS TRCG ONLY W/O I&R NONEMERG A0120 FEDERATED FEDERATED TRNSPRT: 7 MINI-BUS TRANSPORT TRANSPORT MTN ATION SER ATION SER AREA/OTH SYS SBSQ 50121 [facility] 7 FACILITY CARE/DAY E/M STABLE 10 MIN URNLS DIP 39046 [facility] 6 HOSP INC HOSP INC STICK/TAB LET REAGENT AUTO MICROSCOP Y COMPREHEN 76969 [facility] SIVE 6 HOSP INC HOSP INC METABOLIC PANEL COLLECTIO 48129 [facility] N VENOUS 6 HOSP INC HOSP INC BLOOD VENIPUNCT URE BLOOD 70975 [facility] COUNT 6 HOSP INC HOSP INC COMPLETE AUTO&AUTO DIFRNTL WBC CULTURE 79497 [facility] BACTERIAL 6 HOSP INC HOSP INC QUANTTATI VE COLONY COUNT URINE CULTURE 43151 [facility] TYPING 6 HOSP INC HOSP INC IMMUNOLOG IC OTH/THN IMMUNOFLU ORES BLOOD 06593 [facility] OCCULT 6 HOSP INC HOSP INC FECAL HGB DETER IA QUAL FECES 1-3 CT UPPER 82875 [facility] EXTREMITY 5 KIMBERLEY W/[place] [address] [facility] SHOULDER 5 [place] DISLC D D W/MANIPUL REGIONAL REGIONAL [place] [address] [facility] 5 KASHMIR CAR DISLC EMERGENCY W/MANIPUL SERVI ATION W/O ANES THER 88870 [facility]ERSON PROPH/DX 5 [place] NJX IV D D PUSH REGIONAL REGIONAL SINGLE/1S HOS HOS T SBST/DRUG RADEX 92031 [facility]DE[facility] SHOULDER 5 1 VIEW RADIOLOGY ASSOC RADEX 25840 [facility] SHOULDER 5 COMPLETE RADIOLOGY MINIMUM 2 ASSOC VIEWS CLOSED 7971 [facility] [place] REDUCTION 5 [place] OF D D DISLOCATI REGIONAL [place] [address] [facility] INFUSION 5 HOSP INC HOSP INC HYDRATION INITIAL 31 MIN-1 HOUR COLLECTIO 25991 [facility] N VENOUS 4 HOSP INC HOSP INC BLOOD VENIPUNCT URE COMPREHEN 12254 [facility] SIVE 4 HOSP INC HOSP INC METABOLIC PANEL BLOOD 05020 [facility] COUNT 4 HOSP INC HOSP INC COMPLETE AUTO&AUTO DIFRNTL WBC BLOOD 08136 [facility] COUNT 4 HOSP INC HOSP INC COMPLETE AUTO&AUTO DIFRNTL WBC RADIOLOGI 59340 [facility] C 4 IMAGING & MAIKOL EXAMINATI ON CHEST [place] [address] [facility] TROPONIN 4 HOSP INC HOSP INC QUANTITAT KALEB CREATINE 80354 [facility] KINASE 4 HOSP INC HOSP INC TOTAL COMPREHEN 17820 [facility] SIVE 4 HOSP INC HOSP INC METABOLIC PANEL COLLECTIO 27654 [facility] N VENOUS 4 HOSP INC HOSP INC BLOOD VENIPUNCT URE CREATINE 38010 [facility] KINASE MB 4 HOSP INC HOSP INC FRACTION ONLY DUP-SCAN 73620 [facility] IBARRA LXTR 3 ANTOINE ART/ARTL RADIOLOGY BPGS ASSOC UNI/LMTD STUDY DUP-SCAN 35792 [facility] LXTR 3 [place] ART/ARTL D D BPGS REGIONAL REGIONAL UNI/LMTD HOS HOS STUDY ANGIOCARD 8853 [facility] IOGRAPHY 3 [place] OF LEFT D D HEART REGIONAL REGIONAL STRUCTURE HOS HOS S CORONARY 8856 [facility] ARTERIOGR 3 [place] APHY D D USING TWO REGIONAL REGIONAL HOS HOS CATHETERS LEFT 3722 [facility] HEART 3 [place] CARDIAC D D CATHETERI REGIONAL REGIONAL ZATION HOS HOS CATH PLMT 39487 [facility] L HRT & 3 AND KISHORE ARTS ELECTRO W/NJX & SPECIALIS ANGIO IMG S&I RADIOLOGI 90605 [facility] MCDERMOTT C 3 EXAMINATI RADIOLOGY ON CHEST ASSOC SINGLE VIEW FRONTAL INITIAL 65272 [facility] 3 AND KISHORE CARE/DAY ELECTRO 70 SPECIALIS MINUTES RADIOLOGI 05602 [facility] C EXAM 3 HOSP INC HOSP INC CHEST 2 VIEWS [place]ONTAL&[place] [address] [facility] TROPONIN 3 HOSP INC HOSP INC QUANTITAT KALEB CREATINE 84674 [facility] KINASE 3 HOSP INC HOSP INC TOTAL ECG 44240 [facility] ROUTINE 3 HOSP INC HOSP INC ECG W/LEAST 12 LDS TRCG ONLY W/O I&R BLOOD 02383 [facility] COUNT 3 HOSP INC HOSP INC COMPLETE AUTO&AUTO DIFRNTL WBC COLLECTIO 88991 [facility] N VENOUS 3 HOSP INC HOSP INC BLOOD VENIPUNCT URE CREATINE 46305 [facility] KINASE MB 3 HOSP INC HOSP INC FRACTION ONLY COMPREHEN 93118 [facility] SIVE 3 HOSP INC HOSP INC METABOLIC PANEL OBSERVATI 97289 [facility] TIMI COR ON/INPATI [facility] S CARE [address] [place] [address] [facility] INFUSION 3 HOSP INC HOSP INC HYDRATION INITIAL 31 MIN-1 HOUR CREATINE 33924 [facility] KINASE MB 3 HOSP INC HOSP INC FRACTION ONLY COLLECTIO 33447 [facility] N VENOUS 3 HOSP INC HOSP INC BLOOD VENIPUNCT URE COMPREHEN 45075 [facility] SIVE 3 HOSP INC HOSP INC METABOLIC PANEL BLOOD 43025 [facility] COUNT 3 HOSP INC HOSP INC COMPLETE AUTO&AUTO DIFRNTL WBC RADIOLOGI 90267 P[facility] C 3 IMAGING & MAIKOL EXAMINATI ON CHEST [place] [address] [facility] TROPONIN 3 HOSP [facility] HOSP INC QUANTITAT KALEB CREATINE 76868 [facility] KINASE 3 HOSP INC HOSP INC TOTAL ECG 88412 [facility] ROUTINE 3 HOSP [facility] HOSP INC ECG W/LEAST 12 LDS TRCG ONLY W/O I&R Encounters Encounter Start End Date Code Location Performer Type Date [facility] LONG - 7 7 [facility] 57094 [facility] 7 PHYSICIAN A T VISIT S GROUP 40 MINUTES [facility] LONG - 7 7 [facility] LONG - 7 7 [facility] LONG - [address] [facility] T OFFICE 68294 MEEKS MEEKS OUTPATIEN 6 6 [facility] 20 MINUTES CRITICAL [facility] ACCESS 6 6 HOSP [facility] HOSPITAL EMERGENCY 41675 EMERGENCY BALLWIN II 6 6 COVERAGE JAM DEPARTMEN T VISIT CORPORATI HIGH/URGE NT SEVERITY EMERGENCY 94305 [facility] 6 6 HOSP INC DEPARTMEN T VISIT MODERATE SEVERITY HOSPITAL [facility]ERSON - 5 5 [place] OUTPATIEN D T REGIONAL HOS EMERGENCY 54311 [place] DEPT 5 5 [place] VISIT D HIGH REGIONAL SEVERITY& HOS THREAT [facility] PIERSON - 5 5 [place] OUTPATIEN D T REGIONAL HOS EMERGENCY 62777 [facility] 5 5 KASHMIR CAR DEPARTMEN EMERGENCY T VISIT SERVI MODERATE SEVERITY EMERGENCY 53145 [facility] 5 5 HOSP INC DEPARTMEN T VISIT MODERATE SEVERITY EMERGENCY 19098 EMERGENCY YAZ 5 5 COVERAGE MARYELLEN DEPARTMEN T VISIT CORPORATI HIGH/URGE NT SEVERITY CRITICAL [facility] ACCESS 5 5 HOSP [facility] HOSPITAL CRITICAL [facility] ACCESS 4 4 HOSP INC HOSPITAL EMERGENCY 78947 [facility] 4 4 HOSP INC DEPARTMEN T VISIT MODERATE SEVERITY EMERGENCY 58691 EMERGENCY TIMI COR 4 4 COVERAGE DEPARTMEN T VISIT CORPORATI HIGH/URGE NT SEVERITY EMERGENCY 30164 [facility] KILLIAN SHAH 3 3 MEDICAL DEPARTMEN GROUP, [facility] MOD[facility] SEVERITY EMERGENCY 23922 [facility] 3 3 [place] DEPARTMEN D T VISIT REGIONAL HIGH/URGE HOS NT SEVERITY [facility] - 3 3 [facility] REGIONAL HOS EMERGENCY 66119 DC GONG 3 3 EMERGENCY GRE DEPARTMEN SERVICES T VISIT HIGH/URGE NT SEVERITY EMERGENCY 13598 [facility] 3 3 [place] DEPARTMEN D T VISIT REGIONAL LOW/MODER HOS SEVERITY HOSPITAL [place] - 3 3 [facility] INPATIENT D REGIONAL HOS EMERGENCY 75552 [facility] DEPT 3 3 HOSP INC VISIT HIGH SEVERITY& THREAT FUNCJ CRITICAL [facility] ACCESS 3 3 H[facility]P [facility] OFFICE 15304 PRAKASH DUVALL OUTPATIEN 3 3 O MEDICAL DENNISE T VISIT 15 ASSOCIATE MINUTES EMERGENCY 17902 [facility] 3 3 HOSP INC DEPARTMEN T VISIT MODERATE SEVERITY EMERGENCY 21519 EMERGENCY TIMI COR 3 3 COVERAGE DEPARTMEN T VISIT CORPORATI HIGH/URGE NT SEVERITY CRITICAL [facility] ACCESS 3 3 [facility]P [facility]
--- OUTSIDE RECORDS SUMMARY | 2017-05-17 00:21 | External Medical Summary Rpt | CCD ---
Author Author , ELSY Organization ELSY Address Unknown Phone [email or web address] Care Team Providers Care Pediatric Cns Name Role Phone RHONDA ELLIS Unavailable Unavailable YOUNGER BALDEMAR, AREN MCDERMOTT Unavailable Unavailable BEINEKE, BEINEKE Unavailable Unavailable [facility] Unavailable Unavailable [facility], [facility] ZIMMERMAN, ZIMMERMAN Unavailable Unavailable BUSLER CAR, BUSLER Unavailable Unavailable [facility] Unavailable Unavailable SPECIALIS, [facility] EUNICE KIMBERLEY, EUNICE Unavailable Unavailable KIMBERLEY YAZ MARYELLEN, YAZ Unavailable Unavailable MARYELLEN [facility]ATED Unavailable Unavailable TRANSPORTATION SER, [facility] YODIT KISHORE, Unavailable Unavailable YODIT KISHORE [facility] Unavailable Unavailable INC, [facility], Unavailable Unavailable [facility] Un[facility] Unavailable [facility], [facility] Unavailable Unavailable REGIONAL HOS, [facility] KILLIAN ALYSSA, KILLIAN ALYSSA Unavailable Unavailable DUVALL II DENNISE, DUVALL Unavailable Unavailable II DENNISE [facility], Unavailable Unavailable PLLC, [facility], [facility] Unavailable Unavailable ASSOCIATE, [place] [facility] COUPL[facility] JOINER STACEY DELGADILLO Unavailable Unavailable ANTO[facility] Unavailable Unavailable [facility], [facility] RAMOS KIMBERLEY, RAMOS Unavailable Unavailable KIMBERLEY GONG [facility], GONG Unavailable Unavailable [facility], [facility] Unavailable Unavailable [facility], [facility] DONTRELL, Unavailable Unavailable [facility], Unavailable Unavailable [facility], [facility] WOODY II JAM, WOODY Unavailable Unavailable II JAM CONSTANTINO CHARLIE, Unavailable Unavailable MEEKS CHARLIE MEEKS CHARLIE, Unavailable Unavailable MEEKS CHARLIE Purpose Continuity of Care Document - 05-11-2013 through 2016 Problems Code Diagnosis DOS Provider Status R42 DIZZINESS 03-05-2017 [facility] [facility] R079 CHEST PAIN [facility]-22[facility]2017 [facility] R69 ILLNESS 02-21-2017 [facility]ATED UNSPECIFIED TRANSPORTAT ION SER I10 ESSENTIAL 02-14-2017 [facility] HYPERTENSIO INC N I208 OTHER FORMS 02-14-2017 [facility] PECTORIS GROUP Z23001 ASHD NAVAJO 02-14-2017 [facility] COR ART PHYSICIANS W/OTH FORMS GROUP ANGINA PECTORIS P65194 ASHD NAVAJO 02-14-2017 [facility] ARTREY [facility] W/UNS INC ANGINA PECTORIS R9439 ABNORMAL 02-14-2017 [facility] RESULT OTH PHYSICIANS CARDIOVASCU GROUP LR FUNCTION STUDY Z720 TOBACCO USE 02-14-2017 [facility] INC Z950 PRESENCE OF 02-14-2017 [facility] CARDIAC [facility] PACEMAKER INC R0602 SHORTNESS 02-11-2017 [facility] OF BREATH PHYSICIANS GROUP R0789 OTHER CHEST 02-11-2017 [facility] PAIN PHYSICIANS GROUP R9431 ABNORMAL 02-11-2017 [facility] ELECTROCARD [facility] IOGRAM INC 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 I2510 ASHD NAVAJO 10-04-2016 [facility] 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 [...] [facility] N390 URINARY 02-09-2016 [place] [facility] INFECTION SITE NOT SPECIFIED 09232 PAIN IN 02-17-2015 [facility] JOINT, [place] [facility] 2724 OTHER AND 01-23-2015 [facility] UNSPECIFIED [place] [facility] HYPERLIPIDE HOS CHRISTOPHER 4019 UNSPECIFIED 01-23-2015 [facility] ESSENTIAL [place] HYPERTENSIO REGIONAL N HOS 55339 CORONARY 01-23-2015 [facility] ATHEROSCLER [place] OSIS [place]AVA[place] REGIONAL CORONARY HOS ARTERY 53644 CLOSED 01-23-2015 [facility] DISLOCATION [place] OF REGIONAL SHOULDER HOS UNSPECIFIED SITE 41571 CLOSED 01-23-2015 [facility] DISLOCATION SERVI OF HUMERUS E8888 OTHER FALL 01-23-2015 [facility]GENCY SERVI V4501 CARDIAC 01-23-2015 [facility] V4589 OTHER 01-23-2015 [facility] POSTSURGICA [place] L STATUS REGIONAL OTHER HOS V5866 LONG-TERM 01-23-2015 [facility] USE OF [place] ASPIRIN REGIONAL HOS V5869 LONG-TERM 01-23-2015 [facility] (CURRENT) [facility] USE OF REGIONAL OTHER HOS MEDICATIONS 4589 UNSPECIFIED 12-27-2014 [facility] HOS[facility] INC HYPOTENSION 59724 OTHER 12-27-2014 [facility]ISE AND HOSP INC FATIGUE 47171 DEHYDRATION 04-01-2014 [facility] HOS[facility] INC 7962 ELEVATED BP 04-01-2014 [facility] & WITHOUT DX INTERVENTI HYPERTENSIO N 9222 CONTUSION 06-06-2013 [facility] WALL V6709 FOLLOW-UP 06-06-2013 [facility] EXAMINATION RADIOLOGY FOLLOWING ASSOC OTHER SURGERY 9961 [facility] COMP 06-03-2013 [facility] OT RADIOLOGY VASCULAR ASSOC DEVICE IMPLANT&[place] [address] HEMATOMA 06-03-2013 [facility] COMPLICATIN [facility] G A REGIONAL PROCEDURE HOS NEC 96924 CHEST PAIN 06-01-2013 CARDIO AND UNSPECIFIED ELECTRO SPECIALIS 49226 ACUT [place] 05-31-2013 [facility] SUBENDOCARD [place] IAL INFARCT REGIONAL INIT EPIS HOS CARE 7850 UNSPECIFIED 05-31-2013 [facility] RADIOLOGY TACHYCARDIA ASSOC V169 FAMILY 05-31-2013 [facility] HISTORY OF [facility] UNSPECIFIED REGIONAL MALIGNANT HOS NEOPLASM V173 FAMILY 05-31-2013 [facility] HISTORY OF [facility] ISCHEMIC REGIONAL HEART HOS DISEASE 75719 ACUTE 05-30-2013 [facility]ITAL-HO INFARCT SPITALIS UNSPEC SITE INIT EPIS CARE 4011 ESSENTIAL 05-11-2013 [place] HYPERTENSIO MEDICAL N, BENIGN ASSOCIATE Procedures Procedure [place] [address] VIKI CARRASCO HEAD/BRAI 7 MEDICAL N W/O IMAGING CONTRAST ASS MATERIAL RADIOLOGI 91633 VIKI ZIMMERMAN C 7 MEDICAL EXAMINATI IMAGING ON CHEST ASS SINGLE VIEW FRONTAL NONEMERG A0120 FEDERATED FEDERATED TRNSPRT: 7 MINI-BUS TRANSPORT TRANSPORT MTN ATION SER ATION SER AREA/OTH SYS BASIC 37880 LONG ALVES METABOLIC 7 [facility] PANEL INC INC CALCIUM TOTAL CATHETER C1725 LONG LONG TRANSLUMI 7 [facility] NAL INC INC ANGIOPLAS TY NON-LASER GUIDE C1769 [facility] LONG WIRE 7 [facility] INC INC STENT C1876 LONG ALVES NON-COATE 7 [facility] D/NON-COV INC INC ERED W/DELIVER Y SYSTEM PRQ 06219 LONG JOSEPHON TRLUML 7 [facility] CORONARY INC INC STENT W/ANGIO ONE ART/BRNCH COAGULATI 79619 LONG LONG ON TIME 7 [facility] [place] D[place] [address]1414 LONG LONG PRITI&/OR 7 [facility] PRESS INC INC C/JEN RSRV CALLY 1ST VSL BLOOD 47598 [facility] COUNT 7 [facility]OSP COMPLETE INC INC AUTO&AUTO DIFRNTL WBC ECG 72192 [facility] SRIVASTAV ROUTINE 7 PHYSICIAN A ECG S GROUP W/LEAST 12 LDS I&R ONLY ECG 69901 LONG ALVES ROUTINE 7 [facility] ECG INC INC W/LEAST 12 LDS TRCG ONLY W/O I&R NONEMERG A0120 FEDERATED FEDERATED TRNSPRT: 7 MINI-BUS TRANSPORT TRANSPORT MTN ATION SER ATION SER AREA/OTH SYS NONEMERG A0120 FEDERATED FEDERATED TRNSPRT: 7 MINI-BUS TRANSPORT TRANSPORT MTN ATION SER ATION SER AREA/OTH SYS MYOCARDIA 14354 [facility] L SPECT 7 [facility] MULTIPLE INC INC STUDIES TECHNETIU A9502 LONG Vera TC-99M 7 [facility] TETROFOSM INC INC IN DX PER STUDY DOSE CV STRS 39471 [facility] TST 7 [facility] XERS&/OR INC INC RX CONT ECG TRCG ONLY ECHO 38380 [facility] AL[facility]ES TTHRC R-T 7 [facility] 2D INC INC W/WOM-MOD E COMPL SPEC&COLR D ECG 04974 [facility] ROUTINE 7 MEM HOSP MEM HOSP ECG INC INC W/LEAST 12 LDS TRCG ONLY W/O I&R NONEMERG A0120 FEDERATED FEDERATED TRNSPRT: 7 MINI-BUS TRANSPORT TRANSPORT MTN ATION SER ATION SER AREA/OTH SYS SBSQ 98796 RHONDA ELLIS NURSING 7 FACILITY CARE/DAY E/M STABLE 10 MIN URNLS DIP 34369 [facility] 6 HOSP INC HOSP INC STICK/TAB LET REAGENT AUTO MICROSCOP Y COMPREHEN 57167 [facility] SIVE 6 HOSP INC HOSP INC METABOLIC PANEL BLOOD 31502 [facility] OCCULT 6 HOSP INC HOSP INC FECAL HGB DETER IA QUAL FECES 1-3 CULTURE 91843 [facility] BACTERIAL 6 HOSP INC HOSP INC QUANTTATI VE COLONY COUNT URINE CULTURE 44551 [facility] TYPING 6 HOSP INC HOSP INC IMMUNOLOG IC OTH/THN IMMUNOFLU ORES COLLECTIO 64137 [facility] N VENOUS 6 HOSP INC HOSP INC BLOOD VENIPUNCT URE BLOOD 13776 [facility] COUNT 6 HOSP INC HOSP INC COMPLETE AUTO&AUTO DIFRNTL WBC CT UPPER 52787 [facility] EXTREMITY 5 [place] W/O D D CONTRAST REGIONAL [place] [address] [facility] [place] SHOULDER 5 [place] DISLC D D W/MANIPUL REGIONAL REGIONAL ATION REQ HOS HOS ANES RADEX 07058 [facility] SHOULDER 5 [place] 1 VIEW D D REGIONAL REGIONAL HOS HOS RADEX 24713 [facility] SHOULDER 5 [place] COMPLETE D D MINIMUM 2 REGIONAL REGIONAL VIEWS HOS HOS CLOSED 7971 [facility]ERSON REDUCTION 5 [place] OF D D DISLOCATI REGIONAL REGIONAL [place] [address] [facility] 5 KASH[facility]IR CAR DISLC EMERGENCY W/MANIPUL SERVI ATION W/O ANES THER 04901 [facility] PROPH/DX 5 [place] NJX IV D D PUSH REGIONAL REGIONAL SINGLE/1S [place] H[place] T SBST/[place] [address] [facility] INFUSION 5 HOSP INC HOSP INC HYDRATION INITIAL 31 MIN-1 HOUR COMPREHEN 28644 [facility] SIVE 4 HOSP INC HOSP INC METABOLIC PANEL COLLECTIO 57033 [facility] N VENOUS 4 HOSP INC HOSP INC BLOOD VENIPUNCT URE BLOOD 76009 [facility] COUNT 4 HOSP INC HOSP INC COMPLETE AUTO&[place] [address] [facility] TROPONIN 4 HOSP INC HOSP INC QUANTITAT KALEB CREATINE 89979 [facility] KINASE 4 HOSP INC HOSP INC TOTAL BLOOD 40691 [facility] COUNT 4 HOSP INC HOSP INC COMPLETE AUTO&AUTO DIFRNTL WBC COLLECTIO 46656 [facility] N VENOUS 4 HOSP INC HOSP INC BLOOD VENIPUNCT URE CREATINE 34265 [facility] KINASE MB 4 HOSP INC HOSP INC FRACTION ONLY COMPREHEN 65189 [facility] SIVE 4 HOSP INC HOSP INC METABOLIC PANEL RADIOLOGI 85668 [facility] C 4 HOSP INC HOSP INC EXAMINATI ON CHEST SINGLE VIEW FRONTAL DUP-SCAN 51972 [facility] STACEY LXTR 3 ANTOINE ART/ARTL RADIOLOGY BPGS ASSOC UNI/LMTD STUDY DUP-SCAN 24695 [facility] EUNICE LXTR 3 KIMBERLEY ART/ARTL RADIOLOGY BPGS ASSOC UNI/LMTD STUDY ANGIOCARD 8853 [facility] IOGRAPHY 3 [place] OF LEFT D D HEART REGIONAL REGIONAL STRUCTURE HOS HOS S CORONARY 8856 [facility] ARTERIOGR 3 [place] APHY D D USING TWO REGIONAL REGIONAL HOS HOS CATHETERS LEFT 3722 [facility] HEART 3 [place] CARDIAC D D CATHETERI REGIONAL REGIONAL ZATION HOS HOS CATH PLMT 86536 CARDIO YODIT L HRT & 3 AND KISHORE ARTS ELECTRO W/NJX & SPECIALIS ANGIO IMG S&I RADIOLOGI 62878 [facility] 3 EXAMINATI RADIOLOGY ON CHEST ASSOC SINGLE VIEW FRONTAL INITIAL 22049 [facility] 3 AND KISHORE CARE/DAY ELECTRO 70 SPECIALIS MINUTES ECG 90208 [facility] ROUTINE 3 HOSP INC HOSP INC ECG W/LEAST 12 LDS TRCG ONLY W/O I&R CREATINE 31174 [facility] KINASE MB 3 HOSP INC HOSP INC FRACTION ONLY CREATINE 32374 [facility] KINASE 3 [place] [address] [facility] TROPONIN 3 HOSP INC HOSP INC QUANTITAT KALEB BLOOD 70451 [facility] COUNT 3 HOSP INC HOSP INC COMPLETE AUTO&AUTO DIFRNTL WBC RADIOLOGI 46237 [facility] C EXAM 3 IMAGING & KIMBERLEY CHEST 2 VIEWS INTERVENT FRONTAL&L I ATERAL COMPREHEN 63927 [facility] SIVE 3 HOSP INC HOSP INC METABOLIC PANEL OBSERVATI 45549 [facility] TIMI COR ON/INPATI [facility] 40 MINUTES COLLECTIO 16821 [facility] N VENOUS 3 HOSP [place] [address] [facility] INFUSION 3 HOSP INC HOSP INC HYDRATION INITIAL 31 MIN-1 HOUR COLLECTIO 50078 [facility] N VENOUS 3 HOSP INC HOSP INC BLOOD VENIPUNCT URE COMPREHEN 14900 [facility] SIVE 3 HOSP INC HOSP INC METABOLIC PANEL RADIOLOGI 43182 [facility] C 3 HOSP INC HOSP INC EXAMINATI ON CHEST SINGLE VIEW FRONTAL BLOOD 61543 [facility] COUNT 3 HOSP INC HOSP INC COMPLETE AUTO&[place] [address] [facility] TROPONIN 3 HOSP INC HOSP INC QUANTITAT KALEB CREATINE 48991 [facility] KINASE 3 HOSP INC HOSP INC TOTAL CREATINE 50555 [facility] KINASE MB 3 [facility] HOSP INC FRACTION ONLY ECG 01160 [facility] ROUTINE 3 [facility] ECG W/LEAST 12 LDS TRCG ONLY W/O I&R Encounters Encounter Start End Date Code Location Performer Type Date [facility] LONG - 7 7 [facility] T OFFICE 57315 [facility] 7 7 PHYSICIAN A T VISIT S GROUP 40 MINUTES [facility]OSPITAL LONG - 7 7 [facility] 7 [facility] LONG - 7 7 [facility] OFF[facility] 6 6 [facility] 20 MINUTES EMERGENCY 60605 EMERGENCY BRAINERD II 6 6 [facility]OVERAGE JAM DEPARTMEN T VISIT CORPORATI HIGH/URGE NT SEVERITY CRITICAL [facility] ACCESS 6 6 [facility]P [facility] HOSPITAL EMERGENCY 60245 [facility] 6 6 [facility] DEPARTMEN T VISIT MODERATE SEVERITY HOSPITAL [facility] - 5 5 [place] OUTPATIEN D T REGIONAL HOS EMERGENCY 42366 [facility] 5 5 [facility]ASH[facility] CAR DEPARTMEN EMERGENCY T VISIT SERVI MODERATE SEVERITY EMERGENCY 08324 [facility] DEPT 5 5 [place] VISIT D HIGH REGIONAL SEVERITY& [facility] 5 [place] OUTPATIEN D T REGIONAL HOS EMERGENCY 12480 EMERGENCY YAZ 5 5 COVERAGE MARYELLEN DEPARTMEN T VISIT CORPORATI HIGH/URGE NT SEVERITY EMERGENCY 17964 [facility] 5 5 [facility] DEPARTMEN T VISIT MODERATE SEVERITY CRITICAL [facility] ACCESS 5 5 [facility] HOSPITAL EMERGENCY 91974 [facility] 4 4 HOSP INC DEPARTMEN T VISIT MODERATE SEVERITY EMERGENCY 35459 EMERGENCY [facility] 4 4 COVERAGE DEPARTMEN T VISIT CORPORATI HIGH/URGE NT SEVERITY CRITICAL [facility] 4 4 [facility] HOSPITAL EMERGENCY 86745 [facility] 3 3 [place] DEPARTMEN D T VISIT REGIONAL HIGH/URGE HOS NT SEVERITY HOSPITAL [facility] - 3 3 [place] OUTPATIEN D T REGIONAL HOS EMERGENCY 03111 DAVID DAILY ALYSSA 3 3 MEDICAL DEPARTMEN GROUP, T VISIT PLL MODERATE SEVERITY HOSPITAL [facility] - 3 3 [place] OUTPATIEN D T REGIONAL HOS EMERGENCY 77740 DC GONG 3 3 EMERGENCY GRE DEPARTMEN SERVICES T VISIT HIGH/URGE NT SEVERITY EMERGENCY 59999 [facility]ISIT [facility]AL LOW/MODER HOS SEVERITY [facility] [place] [facility] EMERGENCY 02163 [facility] DEPT 3 3 HOSP INC VISIT HIGH SEVERITY& THREAT FUNCJ CRITICAL [facility] ACCESS 3 3 [facility] HOSPITAL OFFICE 86462 PRAKASH DUVALL II OUTPATIEN 3 3 O MEDICAL DENNISE T VISIT 15 ASSOCIATE MINUTES EMERGENCY 16147 EMERGENCY [facility] 3 3 COVERAGE DEPARTMEN T VISIT CORPORATI HIGH/URGE NT SEVERITY CRITICAL [facility] ACCESS 3 3 [facility] HOSPITAL EMERGENCY 09994 [facility] 3 3 [facility] DEPARTMEN T VISIT MODERATE SEVERITY
--- OUTSIDE RECORDS SUMMARY | 2017-05-17 00:21 | External Medical Summary Rpt | CCD ---
Author Author , ELSY Organization ELSY Address Unknown Phone [email or web address] Care Team Providers Care Director Of Partner Marketing Name Role Phone RHONDA ELLIS Unavailable Unavailable YOUNGER BALDEMAR, AREN MCDERMOTT Unavailable Unavailable BEINEKE, BEINEKE Unavailable Unavailable [facility] Unavailable Unavailable [facility], [facility] ZIMMERMAN, ZIMMERMAN Unavailable Unavailable BUSLER CAR, BUSLER Unavailable Unavailable [facility] Unavailable Unavailable SPECIALIS, [facility] EUNICE KIMBERLEY, EUNICE Unavailable Unavailable KIMBERLEY YAZ MARYELLEN, YAZ Unavailable Unavailable MARYELLEN [facility]ATED Unavailable Unavailable TRANSPORTATION SER, [facility] YODIT KISHORE, Unavailable Unavailable YODIT KISHORE [facility] Unavailable Unavailable INC, [facility], Unavailable Unavailable [facility] Unavailable [facility]ING [facility], [facility] Unavailable Unavailable REGIONAL HOS, [facility] KILLIAN ALYSSA, KILLIAN ALYSSA Unavailable Unavailable DUVALL II DENNISE, DUVALL Unavailable Unavailable II DENNISE [facility], Unavailable Unavailable PLLC, [facility], [facility] Unavailable Unavailable ASSOCIATE, [facility] FOURDRINIER TENDER STACEY DELGADILLO Unavailable Unavailable ANTO[facility] & Unavailable Unavailable [facility], [facility] RAMOS KIMBERLEY, RAMOS Unavailable Unavailable KIMBERLEY GONG [facility], GONG Unavailable Unavailable [facility], [facility] Unavailable Unavailable [facility], [facility] DONTRELL, Unavailable Unavailable D[facility]RE[facility], Unavailable Unavailable [facility] Un[facility]available [facility], [facility] WOODY II JAM, WOODY Unavailable Unavailable II JAM CONSTANTINO CHARLIE, Unavailable Unavailable MEEKS CHARLIE MEEKS CHARLIE, Unavailable Unavailable MEEKS CHARLIE Purpose Continuity of Care Document - 05-11-2013 through 2016 Problems Code Diagnosis DOS Provider Status R42 DIZZINESS 03-05-2017 [place] [facility] R079 CHEST PAIN 02-22-2017 [facility] R69 ILLNESS 02-21-2017 [facility]ATED UNSPECIFIED TRANSPORTAT ION SER I10 ESSENTIAL 02-14-2017 [facility] HYPERTENSIO INC N I208 OTHER FORMS 02-14-2017 [facility] OF ANGINA PHYSICIANS PECTORIS GROUP 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 [facility]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-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 [id number] A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-2017 [facility]Y [facility] W/UNS INC ANGINA PECTORIS R9439 ABNORMAL 02-14-2017 [facility] RESULT OTH PHYSICIANS CARDIOVASCU GROUP LR FUNCTION STUDY Z720 TOBACCO USE 02-14-2017 [facility] INC Z950 PRESENCE OF 02-14-2017 [facility]AC [facility] PACEMAKER INC R0602 SHORTNESS 02-11-2017 [facility] OF BREATH PHYSICIANS GROUP R0789 OTHER CHEST 02-11-2017 [facility] PAIN PHYSICIANS GROUP R9431 ABNORMAL 02-11-2017 [facility] ELECTROCARD [facility] IOGRAM INC 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 I2510 ASHD [place] 10-04-2016 [facility] 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 [...] [facility] N390 URINARY 02-09-2016 [facility] INFECTION SITE NOT SPECIFIED 44842 PAIN IN 02-17-2015 [facility] JOINT, [place] [facility] 2724 OTHER AND 01-23-2015 [facility] UNSPECIFIED [place] [facility] HYPERLIPIDE HOS CHRISTOPHER 4019 UNSPECIFIED 01-23-2015 [facility] ESSENTIAL [place] HYPERTENSIO REGIONAL N HOS 56752 CORONARY 01-23-2015 [facility] ATHEROSCLER [place] [facility]AL CORONARY HOS ARTERY 14610 CLOSED 01-23-2015 [facility] DISLOCATION [place] OF [facility]IONAL SHOULDER HOS UNSPECIFIED SITE 61764 CLOSED 01-23-2015 [facility] DISLOCATION SERVI OF HUMERUS E8888 OTHER FALL 01-23-2015 [facility] N [facility]GENCY SERVI V4501 CARDIAC 01-23-2015 [facility] V4589 OTHER 01-23-2015 [facility] POSTSURGICA [place] L STATUS REGIONAL OTHER HOS V5866 LONG-TERM 01-23-2015 [facility] USE OF [place] ASPIRIN REGIONAL HOS V5869 LONG-TERM 01-23-2015 [facility] (CURRENT) [facility] USE OF REGIONAL OTHER HOS MEDICATIONS 4589 UNSPECIFIED 12-27-2014 [facility] HYPOTENSION 19582 OTHER 12-27-2014 [facility] MALAISE AND HOSP INC FATIGUE 75755 DEHYDRATION 04-01-2014 [facility] INC 7962 ELEVATED BP 04-01-2014 [facility] & WITHOUT DX [facility] HYPERTENSIO N 9222 CONTUSION 06-06-2013 [facility] WALL V6709 FOLLOW-UP 06-06-2013 [facility] EXAMINATION RADIOLOGY FOLLOWING ASSOC OTHER SURGERY 9961 [facility] COMP 06-03-2013 [facility] OT RADIOLOGY VASCULAR ASS[place] DEVICE IMPLANT&[place] [address] HEMATOMA 06-03-2013 [facility] COMPLICATIN [place] G A REGIONAL PROCEDURE HOS NEC 88499 CHEST PAIN 06-01-2013 CARDIO AND UNSPECIFIED ELECTRO SPECIALIS 60180 ACUT VA 05-31-2013 [facility] SUBENDOCARD [facility] IAL INFARCT REGIONAL INIT EPIS HOS CARE 7850 UNSPECIFIED 05-31-2013 [facility] RADIOLOGY TACHYCARDIA ASSOC V169 FAMILY 05-31-2013 [facility] HISTORY OF [facility] UNSPECIFIED REGIONAL MALIGNANT HOS NEOPLASM V173 FAMILY 05-31-2013 [facility] HISTORY OF [facility] ISCHEMIC REGIONAL HEART HOS DISEASE 78115 ACUTE 05-30-2013 [facility]-HO INFARCT SPITALIS UNSPEC SITE INIT EPIS CARE 4011 ESSENTIAL 05-11-2013 [facility]ICAL N, BENIGN ASSOCIATE Procedures Procedure [place] [address] VIKI CARRASCO HEAD/BRAI 7 MEDICAL N W/O IMAGING CONTRAST ASS MATERIAL RADIOLOGI 50270 VIKI ZIMMERMAN C 7 MEDICAL EXAMINATI IMAGING ON CHEST ASS SINGLE VIEW FRONTAL NONEMERG A0120 FEDERATED FEDERATED TRNSPRT: 7 [facility] TRANSPORT TRANSPORT MTN ATION SER ATION SER AREA/OTH SYS BASIC 39979 [facility] METABOLIC 7 [facility] PANEL INC INC CALCIUM TOTAL CATHETER C1725 LONG LONG TRANSLUMI 7 [facility] NAL INC INC ANGIOPLAS TY NON-LASER GUIDE C1769 [facility] WIRE 7 [facility] INC INC STENT C1876 LONG ALVES NON-COATE 7 [facility] D/NON-COV INC INC ERED W/DELIVER Y SYSTEM PRQ 29477 LONG JOSEPHON TRLUML 7 [facility] CORONARY INC INC STENT W/ANGIO ONE ART/BRNCH COAGULATI 81071 LONG LONG ON TIME 7 [facility] [place]IVATED INC INC IV DOP 38958 LONG [facility] PRITI&/OR 7 [facility] PRESS INC INC C/JEN RSRV CALLY 1ST VSL BLOOD 02629 LONG AL[facility]ES COUNT 7 [facility] COMPLETE INC INC AUTO&AUTO DIFRNTL WBC ECG 81654 [facility] SRIVASTAV ROUTINE 7 PHYSICIAN A ECG S GROUP W/LEAST 12 LDS I&R ONLY ECG 79755 [facility] ALVES ROUTINE 7 [facility] ECG INC INC W/LEAST 12 LDS TRCG ONLY W/O I&R NONEMERG A0120 FEDERATED FEDERATED TRNSPRT: 7 [facility]-BUS TRANSPORT TRANSPORT MTN ATION SER ATION SER AREA/OTH SYS NONEMERG A0120 FEDERATED FEDERATED TRNSPRT: 7 [facility]I-BUS TRANSPORT TRANSPORT MTN ATION SER ATION SER AREA/OTH SYS MYOCARDIA 59771 [facility] L SPECT 7 [facility] MULTIPLE INC INC STUDIES TECHNETIU A9502 LONG Vera TC-99M 7 [facility] TETROFOSM INC INC IN DX PER STUDY DOSE CV STRS 96619 [facility] TST 7 [facility] XERS&/OR INC INC RX CONT ECG TRCG ONLY ECHO 67347 [facility] TTHRC R-T 7 [facility] 2D INC INC W/WOM-MOD E COMPL SPEC&COLR D ECG 18529 [facility] ROUTINE 7 [facility] ECG INC INC W/LEAST 12 LDS TRCG ONLY W/O I&R NONEMERG A0120 FEDERATED FEDERATED TRNSPRT: 7 MINI-BUS TRANSPORT TRANSPORT MTN ATION SER ATION SER AREA/OTH SYS SBSQ 08217 RHONDA ELLIS NURSING 7 FACILITY CARE/DAY E/M STABLE 10 MIN URNLS DIP 80312 [facility] 6 HOSP INC HOSP INC STICK/TAB LET REAGENT AUTO MICROSCOP Y COMPREHEN 32986 [facility] SIVE 6 HOSP INC HOSP INC METABOLIC PANEL BLOOD 83095 [facility] OCCULT 6 HOSP INC HOSP INC FECAL HGB DETER IA QUAL FECES 1-3 CULTURE 31124 [facility] BACTERIAL 6 HOSP INC HOSP INC QUANTTATI VE COLONY COUNT URINE CULTURE 60250 [facility] TYPING 6 HOSP INC HOSP INC IMMUNOLOG IC OTH/THN IMMUNOFLU ORES COLLECTIO 26322 [facility] N VENOUS 6 HOSP INC HOSP INC BLOOD VENIPUNCT URE BLOOD 01755 [facility] COUNT 6 HOSP INC HOSP INC COMPLETE AUTO&AUTO DIFRNTL WBC CT UPPER 10688 [facility] EXTREMITY 5 [facility] [facility] W/O D D CONTRAST REGIONAL [place] [address] [facility] [place] SHOULDER 5 [place] DISLC D D W/MANIPUL REGIONAL REGIONAL ATION REQ HOS HOS ANES RADEX 79842 [facility] SHOULDER 5 [place] 1 VIEW D D REGIONAL REGIONAL HOS HOS RADEX 36032 [facility]ERSON SHOULDER 5 [place] COMPLETE D D MINIMUM 2 REGIONAL REGIONAL VIEWS HOS HOS CLOSED 7971 [facility]ERSON REDUCTION 5 [place] OF D D DISLOCATI REGIONAL REGIONAL [place] [address] [facility] 5 KASHMIR CAR DISLC EMERGENCY W/MANIPUL SERVI ATION W/O ANES THER 34464 [facility] PROPH/DX 5 [place] NJX IV D D PUSH REGIONAL REGIONAL SINGLE/1S H[place] H[place] T SBST/[place] [address] [facility] INFUSION 5 HOSP INC HOSP INC HYDRATION INITIAL 31 MIN-1 HOUR COMPREHEN 53904 [facility] SIVE 4 HOSP INC HOSP INC METABOLIC PANEL COLLECTIO 34900 [facility] N VENOUS 4 HOSP INC HOSP INC BLOOD VENIPUNCT URE BLOOD 92857 [facility] COUNT 4 HOSP INC HOSP INC COMPLETE AUTO&[place] [address] [facility] TROPONIN 4 HOSP INC HOSP INC QUANTITAT KALEB CREATINE 51137 [facility] KINASE 4 HOSP INC HOSP INC TOTAL BLOOD 24693 [facility] COUNT 4 HOSP INC HOSP INC COMPLETE AUTO&AUTO DIFRNTL WBC COLLECTIO 07589 [facility] N VENOUS 4 HOSP INC HOSP INC BLOOD VENIPUNCT URE CREATINE 56864 [facility] KINASE MB 4 HOSP INC HOSP INC FRACTION ONLY COMPREHEN 27934 [facility] SIVE 4 HOSP INC HOSP INC METABOLIC PANEL RADIOLOGI 21758 [facility] C 4 HOSP INC HOSP INC EXAMINATI ON CHEST SINGLE VIEW FRONTAL DUP-SCAN 67635 [facility] STACEY LXTR 3 ANTOINE ART/ARTL RADIOLOGY BPGS ASSOC UNI/LMTD STUDY DUP-SCAN 49439 [facility] EUNICE LXTR 3 KIMBERLEY ART/ARTL RADIOLOGY BPGS ASSOC UNI/LMTD STUDY ANGIOCARD 8853 [facility] IOGRAPHY 3 [place] OF LEFT D D HEART REGIONAL REGIONAL STRUCTURE HOS HOS S CORONARY 8856 [facility] ARTERIOGR 3 [place] APHY D D USING TWO REGIONAL REGIONAL HOS HOS CATHETERS LEFT 3722 [facility] HEART 3 [place] CARDIAC D D CATHETERI REGIONAL [place]IONAL [place] [address] CARDIO YODIT L HRT & 3 AND KISHORE ARTS ELECTRO W/NJX & SPECIALIS ANGIO IMG S&I RADIOLOGI 58360 [facility] EXAMINATI RADIOLOGY ON CHEST ASSOC SINGLE VIEW FRONTAL INITIAL 64479 [facility] 3 AND KISHORE CARE/DAY ELECTRO 70 SPECIALIS MINUTES ECG 65791 [facility] ROUTINE 3 HOSP INC HOSP INC ECG W/LEAST 12 LDS TRCG ONLY W/O I&R CREATINE 19229 [facility] KINASE MB 3 HOSP INC HOSP INC FRACTION ONLY CREATINE 97933 [facility] KINASE 3 [place] [address] [facility] TROPONIN 3 HOSP INC HOSP INC QUANTITAT KALEB BLOOD 50991 [facility] COUNT 3 HOSP INC HOSP INC COMPLETE AUTO&AUTO DIFRNTL WBC RADIOLOGI 17097 [facility] C EXAM 3 IMAGING & KIMBERLEY CHEST 2 VIEWS INTERVENT FRONTAL&L I ATERAL COMPREHEN 53696 [facility] SIVE 3 HOSP INC HOSP INC METABOLIC PANEL OBSERVATI 38403 [facility] TIMI COR ON/INPATI [facility] C[facility] 40 MINUTES COLLECTIO 48093 [facility] N VENOUS 3 HOSP [place] [address] [facility] INFUSION 3 HOSP INC HOSP INC HYDRATION INITIAL 31 MIN-1 HOUR COLLECTIO 49476 [facility] N VENOUS 3 HOSP INC HOSP INC BLOOD VENIPUNCT URE COMPREHEN 72855 [facility] SIVE 3 HOSP INC HOSP INC METABOLIC PANEL RADIOLOGI 56978 [facility] C 3 HOSP INC HOSP INC EXAMINATI ON CHEST SINGLE VIEW FRONTAL BLOOD 19453 [facility] COUNT 3 HOSP INC HOSP INC COMPLETE AUTO&[place] [address] [facility] TROPONIN 3 HOSP INC HOSP INC QUANTITAT KALEB CREATINE 48966 [facility] KINASE 3 HOSP INC HOSP INC TOTAL CREATINE 10259 [facility] KINASE MB [facility]RACTION ONLY ECG 78311 [facility] ROUTINE 3 [facility] ECG W/LEAST 12 LDS TRCG ONLY W/O I&R Encounters Encounter Start End Date Code Location Performer Type Date [facility] LONG - 7 7 [facility] T OFFICE 63759 [facility] 7 7 PHYSICIAN A T VISIT S GROUP 40 MINUTES [facility]OSPITAL LONG - 7 7 [facility] 7 7 [facility] LONG - 7 7 [facility] T [facility]74 [facility] 6 6 [facility] 20 MINUTES EMERGENCY 19695 EMERGENCY FISHER II 6 6 COVERAGE JAM DEPARTMEN T VISIT CORPORATI HIGH/URGE NT SEVERITY CRITICAL [facility] ACCESS 6 6 [facility] 65685 [facility] 6 6 [facility] DEPARTMEN T VISIT MODERATE SEVERITY [facility]OSPITAL [facility] - 5 5 [place] OUTPATIEN D T REGIONAL HOS EMERGENCY 79107 [facility] 5 5 KASHMIR CAR DEPARTMEN EMERGENCY T VISIT SERVI MODERATE SEVERITY EMERGENCY 71462 [facility] DEPT 5 5 [place] VISIT D HIGH REGIONAL SEVERITY& HOS THREAT [facility] PIERSON - 5 5 [place] OUTPATIEN D T REGIONAL HOS EMERGENCY 69270 EMERGENCY YAZ 5 5 COVERAGE MARYELLEN DEPARTMEN T VISIT CORPORATI HIGH/URGE NT SEVERITY EMERGENCY 93157 [facility] 5 5 [facility] DEPARTMEN T VISIT MODERATE SEVERITY CRITICAL [facility] ACCESS 5 5 [facility] EMERGENCY 20450 [facility] 4 4 HOSP INC DEPARTMEN T VISIT MODERATE SEVERITY EMERGENCY 44434 EMERGENCY [facility] 4 4 COVERAGE DEPARTMEN T VISIT CORPORATI HIGH/URGE NT SEVERITY CRITICAL [facility] 4 4 [facility] EMERGENC[facility] 79629 [facility] 3 3 [place] DEPARTMEN D T VISIT REGIONAL HIGH/URGE HOS NT SEVERITY [facility]OSPITAL [facility] - 3 3 [place] OUTPATIEN D T REGIONAL HOS EMERGENCY 29883 DAVID DAILY ALYSSA 3 3 MEDICAL DEPARTMEN GROUP, T VISIT PLL MODERATE SEVERITY HOSPITAL [facility] - 3 3 [place] OUTPATIEN D T REGIONAL HOS EMERGENCY 96807 DC GONG 3 3 EMERGENCY GRE DEPARTMEN SERVICES T VISIT HIGH/URGE NT SEVERITY EMERGENCY 14883 [facility]IT REGIONAL LOW/MODER HOS SEVERITY [facility] - 3 3 [facility] IN[facility] D REGIONAL HOS EMERGENCY 82430 [facility] DEPT 3 3 HOSP INC VISIT HIGH SEVERITY& THREAT FUNCJ CRITICAL [facility] ACCESS 3 3 [facility] OFF[facility] 33083 PRAKASH DUVALL II OUTPATIEN 3 3 O MEDICAL DENNISE T VISIT 15 ASSOCIATE MINUTES EMERGENCY 84665 EMERGENCY [facility] 3 3 COVERAGE DEPARTMEN T VISIT CORPORATI HIGH/URGE NT SEVERITY CRITICAL [facility] 3 3 [facility] EM[facility]GENCY 67789 [facility] 3 [facility] DEPARTMEN T VISIT MODERATE SEVERITY
--- OUTSIDE RECORDS SUMMARY | 2017-05-17 00:21 | External Medical Summary Rpt | CCD ---
Demographics Preferred Language Irish Marital Status Unknown Gnosticism Affiliation Unknown Race Unknown Ethnic Group Unknown Author Author , ELSY CHIN Address Unknown Phone Immunization No patient found.
--- OUTSIDE RECORDS SUMMARY | 2017-05-17 00:21 | External Medical Summary Rpt | CCD ---
Demographics Preferred Language Indonesian Marital Status Unknown Denominational Affiliation Unknown Race Unknown Ethnic Group Unknown Author Author , ELSY CHIN Address Unknown Phone Immunization No patient found.
--- OUTSIDE RECORDS SUMMARY | 2017-05-17 00:22 | External Medical Summary Rpt ---
Author Author [employer] [place], [employer] Organization [employer] Address Unknown Phone Unavailable Results Troponin I.cardiac [Mass/volume] in Serum or Plasma Observa Value Referen Units Interpr Notes Date tion ce etation Range Troponin 0.00 - ng/mL Normal No May 6 I.cardiac 0.06 informati 2017 6:55 on in AM [Mass/vol source ume] in data Serum or Plasma Comprehensive metabolic 2000 panel in Serum or Plasma Observa Value Referen Units Interpr Notes Date tion ce etation Range Albumin/G 1.1 - 1.8 No Low No May 5 lobulin informati informati 2017 8:46 [Mass on in on in PM ratio] in source source Serum or data data Plasma Albumin 3.4 - 5.0 gm/dL Normal No May 5 [Mass/vol informati 2017 8:46 ume] in on in PM Serum or source Plasma data Alkaline 46 - 116 U/L Normal No May 09 phosphata informati 2017 8:46 se on in PM [Enzymati source c data activity/ volume] in Serum or Plasma Bilirubin 0.2 - 1.0 mg/dL Normal No May 5 .total informati 2017 8:46 [Mass/vol on in PM ume] in source Serum or data Plasma Urea 7 - 18 mg/dL High No May 5 nitrogen informati 2017 8:46 [Mass/vol on in PM ume] in source Serum or data Plasma Calcium 8.5 - mg/dL Normal No May 5 [Mass/vol 10.1 informati 2017 8:46 ume] in on in PM Serum or source Plasma data Chloride 98 - 107 mmoL/L Normal No May 5 [Moles/vo informati 2017 8:46 lume] in on in PM Serum or source Plasma data Carbon 21.0 - mmoL/L Normal No May 5 dioxide, 32.0 informati 2017 8:46 total on in PM [Moles/vo source lume] in data Serum or Plasma Creatinin 0.70 - mg/dL Normal No Oct 5 e 1.30 inform2016 8:46 [Mass/vol on in PM ume] in source Serum or data Plasma Creatinin 50 - 200 ML/MIN Normal No May 09 e renal informati 2016 8:46 clearance on in PM source predicted data by Cockcroft -Gault formula Estimated >60 ML/MIN No REFERENCE May 09 informati RANGE: 2017 8:46 glomerula on in >60 PM r source ML/MIN/1. filtratio data 73 SQUARE n rate METERSIf (GF this patient is -A merican, then multiply theresult by 1.210. Globulin 1.3 - 3.2 gm/dL High No May 09 [Mass/vol informati 2016 8:46 ume] in on in PM Serum source data Glucose 74 - 106 mg/dL Normal No May 09 [Mass/vol informati 2016 8:46 ume] in on in PM Serum or source Plasma data Potassium 3.5 - 5.1 mmoL/L Normal No May 092016 8:46 [Moles/vo on in PM lume] in source Serum or data Plasma Sodium 136 - 145 mmoL/L Normal No May 09 [Moles/vo informati 2016 8:46 lume] in on in PM Serum or source Plasma data Aspartate 15 - 37 U/L Normal No May 09 inform2016 8:46 aminotran on in PM sferase source [Enzymati data c activity/ volume] in Serum or Plasma Alanine 12 - 78 U/L Normal No May 09 aminotran informati 2016 8:46 sferase on in PM [Enzymati source c data activity/ volume] in Serum or Plasma Protein 6.4 - 8.2 gm/dL Normal No May 09 [Mass/vol informati 2016 8:46 ume] in on in PM Serum or source Plasma data CBC W Auto Differential panel in Blood Observa Value Referen Units Interpr Notes Date tion ce etation Range Basophils 0 - 0.2 K/MM3 Normal No May 092016 8:46 [#/volume on in PM ] in source Blood by data Automated count Basophils 0.1 - 2.0 % Normal No May 09 /100 informati 2016 8:46 leukocyte on in PM s in source Blood by data Automated count Eosinophi 0.0 - 0.4 K/mm3 Normal No May 09 ls ati 2016 8:46 [#/volume on in PM ] in source Blood by data Automated count Eosinophi 0.1 - % Normal No May 09 ls/100 12.0 informati 2016 8:46 leukocyte on in PM s in source Blood by data Automated count Granulocy 1.3 - 8.0 K/mm3 Normal No May 5 tracey informati 2016 8:46 [#/volume on in PM ] in source Blood by data Automated count Granulocy 37.0 - % Normal No May 09 tracey/100 80.0 informati 2016 8:46 leukocyte on in PM s in source Blood by data Automated count Hematocri 42.0 - % Low No May 09 t [Volume 52.0 informati 2016 8:46 on in PM Fraction] source of Blood data Hemoglobi 14.1 - g/dL Low No May 09 n 18.0 informati 2016 8:46 [Mass/vol on in PM ume] in source Blood data Lymphocyt 0.7 - 4.5 K/mm3 Normal No May 09 es informati 2016 8:46 [#/volume on in PM ] in source Unspecifi data ed specimen by Automated count Lymphocyt 10 - 50 % Normal No May 09 es informati 2016 8:46 [#/volume on in PM ] in source Unspecifi data ed specimen by Automated count Erythrocy 27 - 31.2 pg Normal No May 09 te mean informati 2016 8:46 corpuscul on in PM ar source hemoglobi data n [Entitic mass] Erythrocy 31.8 - g/dl Low No May 09 te mean 35.4 informati 2016 8:46 corpuscul on in PM ar source hemoglobi data n concentra tion [Mass/vol ume] by Automated count Erythrocy 82.2 - fl High No May 09 te mean 97.8 informati 2016 8:46 corpuscul on in PM ar volume source [Entitic data volume] by Automated count Monocytes 0.1 - 1.0 K/mm3 Normal No May 5 informati 2016 8:46 [#/volume on in PM ] in source Blood by data Automated count Monocytes 1.7 - 9.3 % Normal No May 09 /100 informati 2016 8:46 leukocyte on in PM s in source Blood by data Automated count Platelet 7.4 - fl Normal No May 09 mean 10.4 informati 2016 8:46 volume on in PM [Entitic source volume] data in Blood by Automated count Platelets 142 - 424 K/mm3 Normal No May 09 informati 2016 8:46 [#/volume on in PM ] in source Blood data Erythrocy 4.6 - 6.2 M/mm3 Low No May 09 tracey informati 2016 8:46 [#/volume on in PM ] in source Amniotic data fluid Erythrocy 11.5 - % Normal No May 09 te 17.5 informati 2016 8:46 distribut on in PM ion width source [Entitic data volume] by Automated count Leukocyte 4.8 - K/MM3 Normal No May 09 s 10.8 informati 2016 8:46 [#/volume on in PM ] in source Blood data Comprehensive metabolic 2000 panel in Serum or Plasma Observa Value Referen Units Interpr Notes Date tion ce etation Range Albumin/G 1.1 - 1.8 No Low No Mar 05 lobulin informati informati 2016 8:10 [Mass on in on in PM ratio] in source source Serum or data data Plasma Albumin 3.4 - 5.0 gm/dL Normal No Mar 05 [Mass/vol informati 2016 8:10 ume] in on in PM Serum or source Plasma data Alkaline 46 - 116 U/L Normal No Mar 05 phosphata informati 2016 8:10 se on in PM [Enzymati source c data activity/ volume] in Serum or Plasma Bilirubin 0.2 - 1.0 mg/dL Normal No Mar 05 .total informati 2016 8:10 [Mass/vol on in PM ume] in source Serum or data Plasma Urea 7 - 18 mg/dL High No Mar 05 nitrogen informati 2016 8:10 [Mass/vol on in PM ume] in source Serum or data Plasma Calcium 8.5 - mg/dL Normal No Mar 05 [Mass/vol 10.1 informati 2017 8:10 ume] in on in PM Serum or source Plasma data Chloride 98 - 107 mmoL/L Normal No Mar 05 [Moles/vo informati 2016 8:10 lume] in on in PM Serum or source Plasma data Carbon 21.0 - mmoL/L Normal No Mar 05 dioxide, 32.0 informati 2017 8:10 total on in PM [Moles/vo source lume] in data Serum or Plasma Creatinin 0.70 - mg/dL Normal No Mar 05 e 1.30 informati 2016 8:10 [Mass/vol on in PM ume] in source Serum or data Plasma Creatinin 50 - 200 ML/MIN Normal No Mar 05 e renal 2016 8:10 clearance on in PM source predicted [...] 3.5 - 5.1 mmoL/L Normal No Mar 052016 8:10 [Moles/vo on in PM lume] in source Serum or data Plasma Sodium 136 - 145 mmoL/L Low Mar 05 [Moles/vo 2016 8:10 lume] in on in PM Serum or source Plasma data Aspartate 15 - 37 U/L Normal No Mar 052016 8:10 aminotran on in PM sferase source [Enzymati data c activity/ volume] in Serum or Plasma Alanine 12 - 78 U/L Normal No Mar 05 aminotran ati 2016 8:10 sferase on in PM [Enzymati [...] Eosinophi 0.0 - 0.4 K/mm3 Normal No Mar 05 ls ati 2016 8:10 [#/volume on in PM ] [...] 4.5 K/mm3 Normal No Mar 05 es inform2016 8:10 [#/volume on in PM ] in source Unspecifi data ed specimen by Automated count Lymphocyt 10 - 50 % Normal No Mar 05 es ati 2016 8:10 [#/volume on in PM ] in source Unspecifi data ed specimen by Automated count Erythrocy 27 - 31.2 pg Normal No Mar 05 te mean informati 2016 8:10 corpuscul on in PM [...] Normal No Mar 05 te 17.5 informati 2017 8:10 distribut on in PM ion width [...] Normal No Feb 22 tracey/100 80.0 informati 2016 6:48 leukocyte on in PM s in [...] K/mm3 Normal No Feb 22 es informati 2016 6:48 [#/volume on in PM ] in source Unspecifi data ed specimen by Automated count Lymphocyt 10 - 50 % Normal No Feb 22 es informati 2016 6:48 [#/volume on in PM ] in source Unspecifi data ed specimen by Automated count Erythrocy 27 - 31.2 pg High No Feb 22 te mean informati 2016 6:48 corpuscul on in PM ar source hemoglobi data n [Entitic mass] Erythrocy 31.8 - g/dl Normal No Feb 22 te mean 35.4 informati 2016 6:48 corpuscul on in PM [...] 1.7 - 9.3 % Normal No Feb 22 / informati 2016 6:48 leukocyte on in PM s in source Blood by data Automated count Platelets 142 - 424 K/mm3 Normal No Feb 22 informati 2016 [...]
--- OUTSIDE RECORDS SUMMARY | 2017-05-17 02:05 | External Medical Summary Rpt | Continuity of Care Document ---
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 UPON ARRIVAL TO PT HE WAS SITTING IN THE TV ROOM [facility]. PT HAD URINATED ON HIMSELF. PT WAS 4-4-,6, SKIN W/D, GLADIS, L/S C=. PT CO NOT FEELING RIGHT AND WEAKNESS. PT DENIES ANY KIND OF PAIN OR SOB. STAFF ADVISED THAT PT HAS NOT BEEN ACTING RIGHT IN THE LAST 3 DAYS AND TONIGHT HE HAS GOTTEN TO THE POINT WHERE HE CAN NOT EVEM GET UP OUT OF THE CHAIR.M LOADED PT ONTO COT VIA STAND PIVOT WITH CREW X 3, SECURED PT TO COT. LOADED PT INTO THE AMBULANCE. OBTAINED V/S, [facility] & 12 LEAD - NSR W/O ECTOPY, BGS 101, TEMP - 97.7 ORALLY, 20G LOCK LT AC, BLOOD DRAW AND MONITORED PT EN ROUTE TO [facility] ER. PT REQUIRED TRANSPORT DUE TO AMS WITH WEAKNESS AND REQUIRING ALS INTERVENTIONS. TRANSPORT WITH OUT INCIDENT. NO CHANGE IN STATUS. REPORT AND CARE GIVEN TO REPEATER OPERATOR. Sara RUDD CCP.
--- OUTSIDE RECORDS SUMMARY | 2017-05-17 02:05 | External Medical Summary Rpt | Continuity of Care Document ---
Author Author Organization Address Unknown Phone Unavailable Care Team Providers Care Design Maker Name Role Phone , Unavailable Unavailable EMS Current Medications Section EMS Allergies and Adverse Reactions EMS Past Medical History Medications Administered Section EMS Procedures Performed EMS Vital Signs EMS Patient Care Report Narrative H911 IMMEDIATE RESPONSE TO [employer] FOR A MALE WITH NOT RESPONDING TO [...] LOADED PT INTO THE AMBULANCE. OBTAINED V/S, [facility] & 12 LEAD - NSR W/O ECTOPY, BGS 101, TEMP - 97.7 ORALLY, 20G LOCK LT AC, BLOOD DRAW AND MONITORED PT EN ROUTE TO [facility] ER. PT REQUIRED TRANSPORT DUE TO AMS WITH WEAKNESS AND REQUIRING ALS INTERVENTIONS. TRANSPORT WITH OUT INCIDENT. NO CHANGE IN STATUS. REPORT AND CARE GIVEN TO ENGINEER SOILS. Sara RUDD CCP.
--- OUTSIDE RECORDS SUMMARY | 2017-05-17 02:09 | External Medical Summary Rpt | CCD ---
Author Author , ELSY Organization ELSY Address Unknown Phone [email or web address] Providers Care New Patient Escort Name Role Phone RHONDA ELILS Unavailable Unavailable YOUNGER BALDEMAR, YOUNGER BALDEMAR Unavailable Unavailable BEINEKE, BEINEKE Unavailable Unavailable [facility] Unavailable Unavailable [facility], [facility] ZIMMERMAN, ZIMMERMAN Unavailable Unavailable BUSLER CAR, BUSLER Unavailable Unavailable CAR [facility] Unavailable Unavailable SPECIALIS, [facility] EUNICE KIMBERLEY, EUNICE Unavailable Unavailable KIMBERLEY YAZ MARYELLEN, YAZ Unavailable Unavailable MARYELLEN FEDERATED Unavailable Unavailable TRANSPORTATION SER, [facility] YODIT KISHORE, Unavailable Unavailable YODIT KISHORE [facility] Unavailable Unavailable INC, [facility], Unavailable Unavailable [facility] Un[facility] Unavailable [facility], [facility] Unavailable Unavailable [facility], [facility] KILLIAN ALYSSA, KILLIAN ALYSSA Unavailable Unavailable DUVALL II DENNISE, DUVALL Unavailable Unavailable II DENNISE [facility], Unavailable Unavailable PLLC, [facility] Unavailable Unavailable ASSOCIATE, [facility] LION TAMER STACEY SCHULTZ, STACEY Unavailable Unavailable [facility] Unavailable Unavailable [facility], [facility] RAMOS KIMBERLEY, RAMOS Unavailable Unavailable KIMBERLEY GONG GRE, GONG Unavailable Unavailable [facility], [facility] Unavailable Unavailable [facility] D[facility]RE[facility], Unavailable Unavailable [facility], Unavailable Unavailable [facility] WOOD II JAM, WOODY Unavailable Unavailable II JAM MEEKS CHARLIE, Unavailable Unavailable MEEKS CHARLIE MEEKS CHARLIE, Unavailable Unavailable MEEKS CHARLIE Purpose Continuity of Care Document - 05-11-2013 through 2016 Problems Code Diagnosis DOS Provider Status R42 DIZZINESS 03-05-2017 [place] [facility] R079 CHEST PAIN 02-22-2017 [facility] R69 ILLNESS 02-21-2017 [facility] UNSPECIFIED TRANSPORTAT ION SER I10 ESSENTIAL 02-14-2017 [facility] HYPERTENSIO INC N I208 OTHER FORMS 02-14-2017 [facility] PECTORIS GROUP 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 ASHD MASHPEE 02-14-2017 [facility] COR ART PHYSICIANS W/OTH FORMS GROUP ANGINA PECTORIS W63229 ASHD MASHPEE 02-14-2017 [facility] W/UNS INC ANGINA PECTORIS R9439 ABNORMAL 02-14-2017 [facility] RESULT OTH PHYSICIANS CARDIOVASCU GROUP LR FUNCTION STUDY Z720 TOBACCO USE 02-14-2017 [facility] INC Z950 PRESENCE OF 02-14-2017 [facility] CARDIAC [facility] PACEMAKER INC R0602 SHORTNESS 02-11-2017 [facility] BREATH PHYSICIANS GROUP R0789 OTHER CHEST 02-11-2017 [facility] PAIN PHYSICIANS GROUP R9431 ABNORMAL 02-11-2017 [facility] ELECTROCARD [facility] IOGRAM INC 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 I2510 ASHD MASHPEE 10-04-2016 [facility] 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 [...] [facility] N390 URINARY 02-09-2016 [facility] INFECTION SITE NOT SPECIFIED 42033 PAIN IN 02-17-2015 [facility] JOINT, [place] [facility]ION [facility] 2724 OTHER AND 01-23-2015 [facility] UNSPECIFIED [place] [facility] HYPERLIPIDE HOS CHRISTOPHER 4019 UNSPECIFIED 01-23-2015 [facility] ESSENTIAL [place] HYPERTENSIO REGIONAL N HOS 38345 CORONARY 01-23-2015 [facility] ATHEROSCLER [place] OSIS MASHPE[place] REGIONAL CORONARY HOS ARTERY 51235 CLOSED 01-23-2015 [facility] DISLOCATION [place] OF REGIONAL SHOULDER HOS UNSPECIFIED SITE 87789 CLOSED 01-23-2015 [facility] DISLOCATION SERV[facility] OF HUMERUS E8888 OTHER FALL 01-23-2015 [facility] V4501 CARDIAC 01-23-2015 [facility] PACEMAKER [place] IN SITU REGIONAL HOS V4589 OTHER 01-23-2015 [facility] POSTSURGICA [place] L STATUS REGIONAL OTHER HOS V5866 LONG-TERM 01-23-2015 [facility] USE OF [place] ASPIRIN REGIONAL HOS V5869 LONG-TERM 01-23-2015 [facility] (CURRENT) [place] USE OF REGIONAL OTHER HOS MEDICATIONS 4589 UNSPECIFIED 12-27-2014 [facility]OS[facility] INC HYPOTENSION 49658 OTHER 12-27-2014 [facility] FATIGUE 12286 DEHYDRATION 04-01-2014 [facility] 7962 ELEVATED BP 04-01-2014 [facility] & WITHOUT DX [facility] HYPERTENSIO N 9222 CONTUSION 06-06-2013 [facility] WALL V6709 FOLLOW-UP 06-06-2013 [facility] EXAMINATION RADIOLOGY FOLLOWING ASSOC OTHER SURGERY 9961 [facility] COMP 06-03-2013 [facility] OT RADIOLOGY VASCULAR ASSOC DEVICE IMPLANT&[place] [address] HEMATOMA 06-03-2013 [facility] COMPLICATIN [place] G A REGIONAL PROCEDURE HOS NEC 06690 CHEST PAIN 06-01-2013 CARDIO AND UNSPECIFIED ELECTRO SPECIALIS 97706 ACUT ME 05-31-2013 [facility] SUBENDOCARD [place] IAL INFARCT REGIONAL INIT EPIS HOS CARE 7850 UNSPECIFIED 05-31-2013 [facility] RADIOLOGY TACHYCARDIA ASSOC V169 FAMILY 05-31-2013 [facility] HISTORY OF [place] UNSPECIFIED REGIONAL MALIGNANT HOS NEOPLASM V173 FAMILY 05-31-2013 [facility] HISTORY OF [place] ISCHEMIC REGIONAL HEART HOS DISEASE 13832 ACUTE 05-30-2013 [facility] INFARCT SPITALIS UNSPEC SITE INIT EPIS CARE 4011 ESSENTIAL 05-11-2013 [facility]OC[facility] Results Labs Lab Lab Date Result Refere Interp Status Commen Order Detail nces retati t Range on Drugs identified in Urine by Screen method (02-22-2016 13:38) Comment: er 3 Comment: Supervi 12 - complet sor 016 2016 ed review 13:38 positiv of e results Supervi [id number] complet sor 016 297 ed review 13:38 positiv of e results Supervi [id number] complet sor 016 4 ed review 13:38 POSITIV of E SCT results positiv e Methado [id number] complet ne 016 09 ed cutoff 13:38 NEGATIV [Mass/v E SCT olume] NEGATIV in E Urine for Screen method Barbitu [id number] complet rates 016 09 ed cutoff 13:38 NEGATIV [Mass/v E SCT olume] NEGATIV in E Urine for Screen method Tricycl [id number] complet ic 016 09 ed antidep 13:38 NEGATIV ressant E SCT s NEGATIV tested E for in Urine by Screen method Nominal Benzodi [id number] complet azepine 016 09 ed s 13:38 NEGATIV cutoff E SCT [Mass/v NEGATIV olume] E in Urine for Screen method Phencyc [id number] complet lidine 016 09 ed [Presen 13:38 NEGATIV ce] in E SCT Urine NEGATIV by E Screen method Opiates [id number] complet tested 016 09 ed for in 13:38 NEGATIV Urine E SCT by NEGATIV Screen E method Nominal Methamp [id number] complet hetamin 016 09 ed e 13:38 NEGATIV cutoff E SCT [Mass/v NEGATIV olume] E in Urine for Screen method Tetrahy [id number] complet drocann 016 09 ed abinol 13:38 NEGATIV [Presen E SCT ce] in NEGATIV Urine E by Screen method Cocaine [id number] complet cutoff 016 09 ed 13:38 NEGATIV [Mass/v E SCT olume] NEGATIV in E Urine for Screen method Ampheta [id number] complet mine 016 09 ed cutoff 13:38 [...] Stool (02-09-2016 06:09) Comment: er-tr enedelia Comment: Supervi complet sor 016 ed review 06:09 of results Supervi [id number] complet sor 016 4 ed review 06:09 of results Supervi [id number] POSITIV complet sor 016 4 E ed review 06:09 POSITIV of E SCT results Hemoglo [id number] NEGATIV complet bin.gas 016 4 E ed trointe 06:09 POSITIV stinal E SCT [Presen ce] in Stool Urinalysis complete W Reflex Culture panel - Urine (02-09-2016 06:09) Comment: er-tr enedelia Comment: Microsc 0 - 2 2 TO [...] mg/dL ed 08:25 derived values (set) Creatin 2 = 1.06 0.66 TO complet ine 016 [...] olume] in Urine by Test strip Leukocy 2 NEGATIV complet te 016 E ed esteras 08:25 e [Presen ce] in Urine by Test strip Hemoglo TRACE complet bin 016 ed [Presen 08:25 ce] in Urine by Test strip Bilirub 2 NEGATIV complet in.tota 016 E ed l 08:25 [Presen ce] in Urine by Test strip Glucose 2 NEGATIV complet 016 E ed [Presen 08:25 ce] in Urine Nitrite 2 NEGATIV complet 016 E ed [Presen 08:25 ce] in Urine by Test strip Ketones 2 NEGATIV complet 016 E ed [Presen 08:25 ce] in Urine by Test strip Protein 2 NEGATIV complet 016 E ed [Presen 08:25 ce] in Urine by Test strip pH of 2 = 5.5 4.6 TO complet Urine 016 8.0 ed by Test 08:25 strip Specifi 01-26-2 >= 1.005 complet c 016 1.030 TO ed gravity 08:25 1.030 of Urine CBC W Reflex Manual Differential panel - Blood (01-27-2016 08:25) Comment: er tx nfd Comment: CBC W 01-26-2 = 10.6 7.1 TO complet Auto 016 fl 10.4 ed Differe 08:25 ntial panel - Blood Platele 2 = 206 130 TO complet ts 016 [...] review 08:25 positiv of e results Supervi [id number] complet sor 016 293 ed review 08:25 positiv of e results Supervi [id number] complet sor 016 4 ed review 08:25 POSITIV of E SCT results positiv e Methado [id number] complet ne 016 09 ed cutoff 08:25 NEGATIV [Mass/v E SCT olume] NEGATIV in E Urine for Screen method Barbitu [id number] complet rates 016 09 ed cutoff 08:25 NEGATIV [Mass/v E SCT olume] NEGATIV in E Urine for Screen method Tricycl [id number] complet ic 016 09 ed antidep 08:25 NEGATIV ressant E SCT s NEGATIV tested E for in Urine by Screen method Nominal Benzodi [id number] complet azepine 09 ed s 08:25 NEGATIV cutoff E SCT [Mass/v NEGATIV olume] E in Urine for Screen method Phencyc [id number] complet lidine 09 ed [Presen 08:25 NEGATIV ce] in E SCT Urine NEGATIV by E Screen method Opiates [id number] complet tested ed for in 08:25 NEGATIV Urine E SCT by NEGATIV Screen E method Nominal Methamp [id number] complet hetamin 016 09 ed e 08:25 NEGATIV cutoff E SCT [Mass/v NEGATIV olume] E in Urine for Screen method Tetrahy [id number] complet drocann ed abinol 08:25 NEGATIV [Presen E SCT ce] in NEGATIV Urine E by Screen method Cocaine [id number] complet cutoff 016 09 ed 08:25 NEGATIV [Mass/v E SCT olume] NEGATIV in E Urine for Screen method Ampheta [id number] complet mine 016 09 ed cutoff 08:25 NEGATIV [Mass/v E SCT olume] NEGATIV in E Urine for Screen method Procedures Procedure [place] [address] [facility] HEAD/BRAI 7 MEDICAL N W/O IMAGING CONTRAST ASS MATERIAL RADIOLOGI 32365 [facility] ZIMMERMAN C 7 MEDICAL EXAMINATI IMAGING ON CHEST ASS SINGLE VIEW FRONTAL NONEMERG A0120 FEDERATED FEDERATED TRNSPRT: 7 [facility]I-BUS TRANSPORT TRANSPORT MTN ATION SER ATION SER AREA/OTH SYS BLOOD 19002 [facility] COUNT 7 [facility] COMPLETE INC INC AUTO&AUTO DIFRNTL WBC COAGULATI 57022 [facility] ON TIME 7 [facility] DOP 23118 [facility] PRITI&/OR 7 [facility] PRESS INC INC C/JEN RSRV CALLY 1ST VSL CATHETER C1725 [facility] TRANSLUMI 7 [facility] NAL INC INC ANGIOPLAS TY NON-LASER GUIDE C1769 [facility] WIRE 7 [facility] INC INC STENT C1876 [facility] NON-COATE 7 [facility] D/NON-COV INC INC ERED W/DELIVER Y SYSTEM BASIC 97817 [facility] METABOLIC 7 [facility]OS[facility] PANEL INC [place] CALCIUM T[place] PRQ 52047 [facility] TRLUML 7 [facility] CORONARY INC INC STENT W/ANGIO ONE ART/BRNCH ECG 48583 [facility] SRIVASTAV ROUTINE 7 PHYSICIAN A ECG S GROUP W/LEAST 12 LDS I&R ONLY ECG 99280 [facility] ROUTINE 7 [facility]OS[facility] ECG INC INC W/LEAST 12 LDS TRCG ONLY W/O I&R NONEMERG A0120 FEDERATED FEDERATED TRNSPRT: 7 [facility] TRANSPORT TRANSPORT MTN ATION SER ATION SER [facility]/OTH SYS NONEMERG A0120 FEDERATED FEDERATED TRNSPRT: 7 [facility] TRANSPORT TRANSPORT MTN ATION SER ATION SER AREA/OT SYS MYOCARDIA 87309 [facility] L SPECT 7 [facility] MULTIPLE INC INC STUDIES CV STRS 94763 [facility] TST 7 [facility] XERS&/OR INC INC RX CONT ECG TRCG ONLY ECHO 40089 [facility] TTHRC R-T 7 [facility] 2D INC INC W/WOM-MOD E COMPL SPEC&COLR D TECHNETIU A9502 [facility] TC-99M 7 MEM HOSP MEM HOS[facility] TETROFOSM INC INC IN DX PER STUDY DOSE ECG 16608 [facility] ROUTINE 7 [facility] MEM [facility]OS[facility] ECG INC INC W/LEAST 12 LDS TRCG ONLY W/O I&R NONEMERG A0120 FEDERATED FEDERATED TRNSPRT: 7 [facility] TRANSPORT TRANSPORT MTN ATION SER ATION SER AREA/OTH SYS SBSQ 68902 [facility] FACILITY CARE/DAY E/M STABLE 10 MIN URNLS DIP 23944 [facility] 6 HOSP INC HOSP INC STICK/TAB LET REAGENT AUTO MICROSCOP Y COMPREHEN 87357 [facility] SIVE 6 HOSP INC HOSP INC METABOLIC PANEL BLOOD 07770 [facility] COUNT 6 HOSP INC HOSP INC COMPLETE AUTO&AUTO DIFRNTL WBC CULTURE 87029 [facility] BACTERIAL 6 HOSP INC HOSP INC QUANTTATI VE COLONY COUNT URINE CULTURE 33591 [facility] TYPING 6 HOSP INC HOSP INC IMMUNOLOG IC OTH/THN IMMUNOFLU ORES BLOOD 30267 [facility] OCCULT 6 HOSP INC HOSP INC FECAL HGB DETER IA QUAL FECES 1-3 COLLECTIO 38160 [facility] N VENOUS 6 HOSP INC HOSP INC BLOOD VENIPUNCT URE CT UPPER 62952 [facility] EXTREMITY 5 [place] W/O D D CONTRAST REGIONAL REGIONAL MATERIAL HOS HOS RADEX 61224 [facility] SHOULDER 5 [place] 1 VIEW D D REGIONAL REGIONAL HOS HOS RADEX 74368 [facility] SHOULDER 5 [place] COMPLETE D D MINIMUM 2 REGIONAL REGIONAL VIEWS HOS HOS CLOSED 7971 [facility] REDUCTION 5 [place] OF D D DISLOCATI REGIONAL REGIONAL [place] [address] [facility] SHOULDER 5 [place] DISLC D D W/MANIPUL REGIONAL REGIONAL [place] [address] [facility] BUSLER SHOULDER 5 KASHMIR CAR DISLC EMERGENCY W/MANIPUL SERVI ATION W/O ANES THER 76470 [facility] PROPH/DX 5 [place] NJX IV D D PUSH REGIONAL REGIONAL SINGLE/1S H[place] HOS T SBST/[place] [address] [facility] INFUSION 5 HOSP INC HOSP INC HYDRATION INITIAL 31 MIN-1 HOUR COLLECTIO 93267 [facility] N VENOUS 4 HOSP INC HOSP INC BLOOD VENIPUNCT URE BLOOD 60781 [facility] COUNT 4 HOSP INC HOSP INC COMPLETE AUTO&AUTO DIFRNTL WBC COMPREHEN 45986 [facility] SIVE 4 HOSP INC HOSP INC METABOLIC PANEL COMPREHEN 94052 [facility] SIVE 4 HOSP INC HOSP INC METABOLIC PANEL CREATINE 92366 [facility] KINASE 4 HOSP INC HOSP INC TOTAL BLOOD 79292 [facility] COUNT 4 HOSP INC HOSP INC COMPLETE AUTO&[place] [address] [facility] TROPONIN 4 HOSP INC HOSP INC QUANTITAT KALEB CREATINE 87981 [facility] KINASE MB 4 HOSP INC HOSP INC FRACTION ONLY RADIOLOGI 17178 [facility] C 4 HOSP INC HOSP INC EXAMINATI ON CHEST SINGLE VIEW FRONTAL COLLECTIO 44575 [facility] N VENOUS 4 HOSP INC HOSP INC BLOOD VENIPUNCT URE DUP-SCAN 76744 [facility] IBARRA LXTR 3 ANTOINE ART/ARTL RADIOLOGY BPGS ASSOC UNI/LMTD STUDY DUP-SCAN 79956 [facility] DAWSON LXTR 3 KIMBERLEY ART/ARTL RADIOLOGY BPGS ASSOC UNI/LMTD STUDY CATH PLMT 54116 CARDIO YODIT L HRT & 3 AND KISHORE ARTS ELECTRO W/NJX & SPECIALIS ANGIO IMG S&I LEFT 3722 [facility] HEART 3 [place] CARDIAC D D CATHETERI REGIONAL REGIONAL ZATION HOS HOS CORONARY 8856 [facility] ARTERIOGR 3 [facility] APHY D D USING TWO REGIONAL REGIONAL HOS HOS CATHETERS ANGIOCARD 8853 [facility] DEL RIO IOGRAPHY 3 [place] OF LEFT D D HEART REGIONAL REGIONAL STRUCTURE HOS HOS S INITIAL 76900 [facility] 3 AND KISHORE CARE/DAY ELECTRO 70 SPECIALIS MINUTES RADIOLOGI 98623 LEIA YOUNGER BALDEMAR C 3 EXAMINATI RADIOLOGY ON CHEST ASSOC SINGLE VIEW FRONTAL RADIOLOGI 46695 PREMIER RAMOS C EXAM 3 IMAGING & KIMBERLEY CHEST 2 VIEWS INTERVENT [place] [address] [facility] [employer] TROPONIN 3 HOSP INC HOSP INC QUANTITAT KALEB BLOOD 45303 [facility] [employer] COUNT 3 HOSP INC HOSP INC COMPLETE AUTO&AUTO DIFRNTL WBC COLLECTIO 92823 [facility] MARGIE [employer] N VENOUS 3 HOSP INC HOSP INC BLOOD VENIPUNCT URE CREATINE 67708 [facility] [employer] KINASE MB 3 [place] [address] [employer] INFUSION 3 HOSP INC HOSP INC HYDRATION INITIAL 31 MIN-1 HOUR CREATINE 71710 [employer] KINASE 3 HOSP INC HOSP INC TOTAL ECG 53030 [facility] [employer] ROUTINE 3 HOSP INC HOSP INC ECG W/LEAST 12 LDS TRCG ONLY W/O I&R COMPREHEN 24798 [facility]ARGIE [employer] SIVE 3 HOSP INC HOSP INC METABOLIC PANEL OBSERVATI 30110 [facility] TIMI COR ON/INPATI 3 [facility] S CARE 40 MINUTES COMPREHEN 86572 [facility] [employer] SIVE 3 HOSP INC HOSP INC METABOLIC PANEL ECG 89480 [facility]IE [employer] ROUTINE 3 HOSP INC HOSP INC ECG W/LEAST 12 LDS TRCG ONLY W/O I&R CREATINE 14591 [facility]IE [facility] KINASE 3 HOSP INC HOSP INC TOTAL CREATINE 31833 [facility] [employer] KINASE MB 3 HOSP INC HOSP INC FRACTION ONLY COLLECTIO 41463 [facility] [employer] N VENOUS 3 HOSP INC HOSP INC BLOOD VENIPUNCT URE BLOOD 78629 [facility] COUNT 3 HOSP INC HOSP INC COMPLETE AUTO&[place] [address] [facility] TROPONIN 3 HOSP [facility] QUANTITAT KALEB RADIOLOGI 15955 [facility] C 3 HOSP [facility] HOSP [facility] EXAMINATI ON CHEST SINGLE VIEW FRONTAL Encounters Encounter Start End Date Code Location Performer Type Date [facility] LONG - 7 7 [facility] 79883 [facility] 7 7 PHYSICIAN A T VISIT S GROUP 40 MINUTES [facility] LONG - 7 7 [facility] - 7 7 [facility] LONG - 7 7 [facility] T OFFICE 11900 MEEKS MEEKS OUTPATIEN 6 6 [facility] [address] [facility] ACCESS 6 6 HOSP [facility] HOSPITAL EMERGENCY 48976 EMERGENCY SEYMOUR II 6 6 COVERAGE JAM DEPARTMEN T VISIT CORPORATI HIGH/URGE NT SEVERITY EMERGENCY 59914 [facility] 6 6 HOSP INC DEPARTMEN T VISIT MODERATE SEVERITY HOSPITAL [facility] - 5 5 [place] OUTPATIEN D T REGIONAL HOS EMERGENCY 19267 [facility] 5 5 KASHMIR CAR DEPARTMEN EMERGENCY T VISIT SERVI MODERATE SEVERITY EMERGENCY 91023 [facility] [place] VISIT D HIGH REGIONAL SEVERITY& HOS THREAT [facility] PIERSON - 5 5 [place] OUTPATIEN D T REGIONAL HOS [facility]ITICAL [facility] ACCESS 5 5 HOSP [facility] EMERGENCY 00166 [facility] 5 5 HOSP INC DEPARTMEN T VISIT MODERATE SEVERITY EMERGENCY 49860 EMERGENCY YAZ 5 5 COVERAGE MARYELLEN DEPARTMEN T VISIT CORPORATI HIGH/URGE NT SEVERITY CRITICAL [facility] ACCESS 4 4 HOSP INC HOSPITAL EMERGENCY 03281 [facility] 4 4 HOSP INC DEPARTMEN T VISIT MODERATE SEVERITY EMERGENCY 40509 EMERGENCY [facility] 4 4 COVERAGE DEPARTMEN T VISIT CORPORATI HIGH/URGE NT SEVERITY EMERGENCY 64567 DAVID DAILY ALYSSA 3 3 MEDICAL DEPARTMEN GROUP, T VISIT [facility] MODERATE SEVERITY EMERGENCY 76558 [facility] 3 3 [place] DEPARTMEN D T VISIT REGIONAL HIGH/URGE HOS NT SEVERITY HOSPITAL [facility] - 3 3 [place] OUTPATIEN D T REGIONAL HOS HOSPITAL [facility] - 3 3 [place] OUTPATIEN D T REGIONAL HOS EMERGENCY 62630 DC GONG 3 3 EMERGENCY GRE DEPARTMEN SERVICES T VISIT HIGH/URGE NT SEVERITY EMERGENCY 75161 [facility] 3 3 [place] DEPARTMEN D T VISIT REGIONAL LOW/MODER HOS SEVERITY HOSPITAL [facility] - 3 3 [place] INPATIENT D REGIONAL HOS CRITICAL [facility] ACCESS 3 3 HOSP [facility] HOSPITAL EMERGENCY 74652 [facility] DEPT 3 3 HOSP INC VISIT HIGH SEVERITY& THREAT FUNCJ EMERGENCY 16552 [facility] 3 3 HOSP INC DEPARTMEN T VISIT MODERATE SEVERITY CRITICAL [facility] ACCESS 3 3 HOSP INC HOSPITAL EMERGENCY 51405 EMERGENCY [facility] 3 3 COVERAGE DEPARTMEN T VISIT CORPORATI HIGH/URGE NT SEVERITY OFFICE 63378 PRAKASH DUVALL II OUTPATIEN 3 3 O MEDICAL DENNISE T VISIT 15 ASSOCIATE MINUTES
--- OUTSIDE RECORDS SUMMARY | 2017-05-17 02:09 | External Medical Summary Rpt | CCD ---
Author Author , ELSY Organization ELSY Address Unknown Phone [email or web address] Care Team Providers Care Granulator Name Role Phone RHONDA ELLIS Unavailable Unavailable YOUNGER BALDEMAR, YOUNGER BALDEMAR Unavailable Unavailable BEINEKE, BEINEKE Unavailable Unavailable [facility] Unavailable Unavailable [facility], [facility] ZIMMERMAN, ZIMMERMAN Unavailable Unavailable BUSLER CAR, BUSLER Unavailable Unavailable CAR [facility] Unavailable Unavailable SPECIALIS, [facility] EUNICE KIMBERLEY, EUNICE Unavailable Unavailable KIMBERLEY YAZ MARYELLEN, YAZ Unavailable Unavailable MARYELLEN FEDERATED Unavailable Unavailable TRANSPORTATION SER, [facility]SP[facility] YODIT KISHORE, Unavailable Unavailable YODIT KISHORE [facility] Unavailable Unavailable INC, [facility], Unavailable Unavailable [facility] Unavailable Unavailable [facility], [facility] Unavailable Unavailable REGIONAL HOS, [facility] KILLIAN ALYSSA, KILLIAN ALYSSA Unavailable Unavailable DUVALL II DENNISE, DUVALL Unavailable Unavailable II DENNISE [facility], Unavailable Unavailable PLLC, [facility] Unavailable Unavailable ASSOCIATE, [facility] F[facility] TECHNICIAN STACEY SCHULTZ, STACEY Unavailable Unavailable [facility] Unavailable Unavailable [facility] RAMOS KIMBERLEY, RAMOS Unavailable Unavailable [facility] GONG GRE, GONG Unavailable Unavailable [facility], [facility] Unavailable Unavailable [facility], [facility] DONTRELL, Unavailable Unavailable DONTRE[facility], Unavailable Unavailable [facility] Un[facility], [facility] WOOD II JAM, WOODY Unavailable Unavailable II JAM MEEKS CHARLIE, Unavailable Unavailable MEEKS CHARLIE MEEKS CHARLIE, Unavailable Unavailable MEEKS CHARLIE Purpose Continuity of Care Document - 05-11-2013 through 2016 Problems Code Diagnosis DOS Provider Status R42 DIZZINESS 03-05-2017 [place] [facility] R079 CHEST PAIN 02-22-2017 [place] R69 ILLNESS 02-21-2017 FEDERATED UNSPECIFIED TRANSPORTAT ION SER I10 ESSENTIAL 02-14-2017 [facility] HYPERTENSIO INC N I208 OTHER FORMS 02-14-2017 [facility] PECTORIS [facility] V42830 ASHD KLUTI KAAH 02-14-2017 [facility] ART PHYSICIANS W/OTH FORMS GROUP ANGINA PECTORIS R28732 ASHD KLUTI KAAH 02-14-2017 [facility]REY [facility] W/UNS INC ANGINA PECTORIS R9439 ABNORMAL 02-14-2017 [facility] CARDIOVASCU GROUP LR FUNCTION STUDY Z720 TOBACCO USE 02-14-2017 [facility] INC Z950 PRESENCE OF 02-14-2017 [facility] CARDIAC [facility] PACEMAKER INC R0602 SHORTNESS 02-11-2017 [facility] BREATH [facility] GROUP R0789 OTHER CHEST 02-11-2017 [facility] PAIN [facility]YS[facility] GROUP R9431 ABNORMAL 02-11-2017 [facility] ELECTROCARD [facility] IOGRAM INC 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 I2510 ASHD KLUTI KAAH 10-04-2016 [facility] 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 [...] TRACT HOSP INC INFECTION SITE NOT SPECIFIED 85985 PAIN IN 02-17-2015 [facility] JOINT, [place] [facility] 2724 OTHER AND 01-23-2015 [facility] UNSPECIFIED [place] [facility] HYPERLIPIDE HOS CHRISTOPHER 4019 UNSPECIFIED 01-23-2015 [facility] ESSENTIAL [place] HYPERTENSIO REGIONAL N HOS 39383 CORONARY 01-23-2015 [facility] ATHEROSCLER [place] OSIS KLUTI KAAH REGIONAL CORONARY HOS ARTERY 36761 CLOSED 01-23-2015 [facility] DISLOCATION [place] OF REGIONAL SHOULDER HOS UNSPECIFIED SITE 12802 CLOSED 01-23-2015 [facility] DISLOCATION SERVI OF HUMERUS E8888 OTHER FALL 01-23-2015 [facility] N [facility] SERV[facility] V4501 CARDIAC 01-23-2015 [facility] PACEMAKER [place] IN SITU REGIONAL HOS V4589 OTHER 01-23-2015 [facility] POSTSURGICA [place] L STATUS REGIONAL OTHER HOS V5866 LONG-TERM 01-23-2015 [facility] USE OF [place] ASPIRIN REGIONAL HOS V5869 LONG-TERM 01-23-2015 [facility] (CURRENT) [place] USE OF REGIONAL OTHER HOS MEDICATIONS 4589 UNSPECIFIED 12-27-[address] [facility] HOSP INC HYPOTENSION 19346 OTHER 12-27-[address] [facility] MALAISE AND HOSP INC FATIGUE 45474 DEHYDRATION 04-01-[address] [facility] HOSP INC 7962 ELEVATED BP 04-01-2014 [facility] & WITHOUT DX [facility] HYPERTENSIO N 9222 CONTUSION 06-06-2013 [facility] WALL V6709 FOLLOW-UP 06-06-2013 [facility] EXAMINATION RADIOLOGY FOLLOWING ASSOC OTHER SURGERY 9961 [facility] COMP 06-03-2013 [facility] OT RADIOLOGY VASCULAR ASSOC DEVICE IMPLANT&[place] [address] HEMATOMA 06-03-2013 [facility] COMPLICATIN [place] G A REGIONAL PROCEDURE HOS NEC 50455 CHEST PAIN 06-01-2013 CARDIO AND UNSPECIFIED ELECTRO SPECIALIS 62086 ACUT OH 05-31-2013 [facility] SUBENDOCARD [place] IAL INFARCT REGIONAL INIT EPIS HOS CARE 7850 UNSPECIFIED 05-31-2013 [facility] RADIOLOGY TACHYCARDIA ASSOC V169 FAMILY 05-31-2013 [facility] HISTORY OF [place] UNSPECIFIED REGIONAL MALIGNANT HOS NEOPLASM V173 FAMILY 05-31-2013 [facility] HISTORY OF [place] ISCHEMIC REGIONAL HEART HOS DISEASE 13813 ACUTE 05-30-[address] [facility] MYOCARD HOSPITAL-HO INFARCT SPITALIS UNSPEC SITE INIT EPIS CARE 4011 ESSENTIAL 05-11-2013 [facility] Results Labs Lab Lab Date Result Refere Interp Status Commen Order Detail nces retati t Range on Drugs identified in Urine by Screen method (02-22-2016 13:38) Comment: er 3 Comment: Supervi 12 - complet sor 016 2016 ed review 13:38 positiv of e results Supervi [id number] complet sor 016 297 ed review 13:38 positiv of e results Supervi [id number] complet sor 016 4 ed review 13:38 POSITIV of E SCT results positiv e Methado [id number] complet ne 016 09 ed cutoff 13:38 NEGATIV [Mass/v E SCT olume] NEGATIV in E Urine for Screen method Barbitu [id number] complet rates 016 09 ed cutoff 13:38 NEGATIV [Mass/v E SCT olume] NEGATIV in E Urine for Screen method Tricycl [id number] complet ic 016 09 ed antidep 13:38 NEGATIV ressant E SCT s NEGATIV tested E for in Urine by Screen method Nominal Benzodi [id number] complet azepine 016 09 ed s 13:38 NEGATIV cutoff E SCT [Mass/v NEGATIV olume] E in Urine for Screen method Phencyc [id number] complet lidine 016 09 ed [Presen 13:38 NEGATIV ce] in E SCT Urine NEGATIV by E Screen method Opiates [id number] complet tested 016 09 ed for in 13:38 NEGATIV Urine E SCT by NEGATIV Screen E method Nominal Methamp [id number] complet hetamin 016 09 ed e 13:38 NEGATIV cutoff E SCT [Mass/v NEGATIV olume] E in Urine for Screen method Tetrahy [id number] complet drocann 016 09 ed abinol 13:38 NEGATIV [Presen E SCT ce] in NEGATIV Urine E by Screen method Cocaine [id number] complet cutoff 016 09 ed 13:38 NEGATIV [Mass/v E SCT olume] NEGATIV in E Urine for Screen method Ampheta [id number] complet mine 016 09 ed cutoff 13:38 [...] 016 ed review 06:09 of results Supervi [id number] complet sor 016 4 ed review 06:09 of results Supervi [id number] POSITIV complet sor 016 4 E ed review 06:09 POSITIV of E SCT results Hemoglo [id number] NEGATIV complet bin.gas 016 4 E ed [...] review 08:25 positiv of e results Supervi [id number] complet sor 016 293 ed review 08:25 positiv of e results Supervi [id number] complet sor 016 4 ed review 08:25 POSITIV of E SCT results positiv e Methado [id number] complet ne 016 09 ed cutoff 08:25 NEGATIV [Mass/v E SCT olume] NEGATIV in E Urine for Screen method Barbitu [id number] complet rates 016 09 ed cutoff 08:25 NEGATIV [Mass/v E SCT olume] NEGATIV in E Urine for Screen method Tricycl [id number] complet ic 016 09 ed antidep 08:25 NEGATIV ressant E SCT s NEGATIV tested E for in Urine by Screen method Nominal Benzodi [id number] complet azepine 09 ed s 08:25 NEGATIV cutoff E SCT [Mass/v NEGATIV olume] E in Urine for Screen method Phencyc [id number] complet lidine 09 ed [Presen 08:25 NEGATIV ce] in E SCT Urine NEGATIV by E Screen method Opiates [id number] complet tested ed for in 08:25 NEGATIV Urine E SCT by NEGATIV Screen E method Nominal Methamp [id number] complet hetamin 016 09 ed e 08:25 NEGATIV cutoff E SCT [Mass/v NEGATIV olume] E in Urine for Screen method Tetrahy [id number] complet drocann ed abinol 08:25 NEGATIV [Presen E SCT ce] in NEGATIV Urine E by Screen method Cocaine [id number] complet cutoff 016 09 ed 08:25 NEGATIV [Mass/v E SCT olume] NEGATIV in E Urine for Screen method Ampheta [id number] complet mine 016 09 ed cutoff 08:25 NEGATIV [Mass/v E SCT olume] NEGATIV in E Urine for Screen method Procedures Procedure [place] [address] [facility] 7 MEDICAL N W/O IMAGING CONTRAST ASS MATERIAL RADIOLOGI 44884 [place] ZIMMERMAN C 7 MEDICAL EXAMINATI IMAGING ON CHEST ASS SINGLE VIEW FRONTAL NONEMERG A0120 FEDERATED FEDERATED TRNSPRT: 7 MINI-BUS TRANSPORT TRANSPORT MTN ATION SER ATION SER AREA/OTH SYS BLOOD 56874 [facility] COUNT 7 [facility] COMPLETE INC INC AUTO&AUTO DIFRNTL WBC COAGULATI 56513 [facility] ON TIME 7 [facility] [place] [address]4040 [facility] PRITI&/OR 7 [facility] PRESS INC INC C/JEN RSRV CALLY 1ST VSL CATHETER C1725 [facility] TRANSLUMI 7 [facility] NAL INC INC ANGIOPLAS TY NON-LASER GUIDE C1769 [facility] WIRE 7 [facility] INC INC STENT C1876 [facility] NON-COATE 7 [facility] D/NON-COV INC INC ERED W/DELIVER Y SYSTEM BASIC 32056 [facility] METABOLIC 7 [facility] PANEL INC [place] CALCIUM TOTAL PRQ 58787 [facility] TRLUML 7 [facility] CORONARY INC INC STENT W/ANGIO ONE ART/BRNCH ECG 54406 [facility] ROUTINE 7 PHYSICIAN A ECG S GROUP W/LEAST 12 LDS I&R ONLY ECG 46069 LONG ALEVS ROUTINE 7 [facility] ECG INC INC W/LEAST 12 LDS TRCG ONLY W/O I&R NONEMERG A0120 FEDERATED FEDERATED TRNSPRT: 7 [facility]-BUS TRANSPORT TRANSPORT MTN ATION SER ATION SER [facility]/OTH SYS NONEMERG A0120 FEDERATED FEDERATED TRNSPRT: 7 MINI-BUS TRANSPORT TRANSPORT MTN ATION SER ATION SER AREA/OT SYS MYOCARDIA 29283 [facility] L SPECT 7 [facility] MULTIPLE INC INC STUDIES CV STRS 88779 [facility] TST 7 [facility] XERS&/OR INC INC RX CONT ECG TRCG ONLY ECHO 79928 [facility] TTHRC R-T 7 [facility] 2D INC INC W/WOM-MOD E COMPL SPEC&COLR D TECHNETIU A9502 LONG Vera TC-99M 7 MEM H[facility] MEM HOS[facility] TETROFOSM INC INC IN DX PER STUDY DOSE ECG 05047 [facility] ROUTINE 7 [facility] MEM [facility]OS[facility] ECG INC INC W/LEAST 12 LDS TRCG ONLY W/O I&R NONEMERG A0120 FEDERATED FEDERATED TRNSPRT: 7 MINI-BUS TRANSPORT TRANSPORT MTN ATION SER ATION SER AREA/OTH SYS SBSQ 53860 [facility] 7 FACILITY CARE/DAY E/M STABLE 10 MIN URNLS DIP 93442 [facility] 6 HOSP INC HOSP INC STICK/TAB LET REAGENT AUTO MICROSCOP Y COMPREHEN 86391 [facility] SIVE 6 HOSP INC HOSP INC METABOLIC PANEL BLOOD 82675 [facility] COUNT 6 HOSP INC HOSP INC COMPLETE AUTO&AUTO DIFRNTL WBC CULTURE 59324 [facility] BACTERIAL 6 HOSP INC HOSP INC QUANTTATI VE COLONY COUNT URINE CULTURE 35022 [facility] TYPING 6 HOSP INC HOSP INC IMMUNOLOG IC OTH/THN IMMUNOFLU ORES BLOOD 08091 [facility] OCCULT 6 HOSP INC HOSP INC FECAL HGB DETER IA QUAL FECES 1-3 COLLECTIO 64293 [facility] N VENOUS 6 HOSP INC HOSP INC BLOOD VENIPUNCT URE CT UPPER 09376 [facility] EXTREMITY 5 [place] [facility] W/O D D CONTRAST REGIONAL REGIONAL MATERIAL HOS HOS RADEX 29339 [facility] SHOULDER 5 [place] 1 VIEW D D REGIONAL REGIONAL HOS HOS RADEX 02117 [facility] SHOULDER 5 [place] COMPLETE D D MINIMUM 2 REGIONAL REGIONAL VIEWS HOS HOS CLOSED 7971 [facility] REDUCTION 5 [place] OF D D DISLOCATI REGIONAL REGIONAL [place] [address] [facility] SHOULDER 5 [place] DISLC D D W/MANIPUL REGIONAL REGIONAL [place] [address] [facility] BUSLER SHOULDER 5 KASHM[facility] CAR DISLC EMERGENCY W/MANIPUL SERVI ATION W/O ANES THER 264[address] [facility] PROPH/DX 5 [place] NJX IV D D PUSH REGIONAL REGIONAL SINGLE/1S H[place] H[place] T SBST/[place] [address] [facility] INFUSION 5 HOSP INC HOSP INC HYDRATION INITIAL 31 MIN-1 HOUR COLLECTIO 03842 [facility] N VENOUS 4 HOSP INC HOSP INC BLOOD VENIPUNCT URE BLOOD 16254 [facility] COUNT 4 HOSP INC HOSP INC COMPLETE AUTO&AUTO DIFRNTL WBC COMPREHEN 72945 [facility] SIVE 4 HOSP INC HOSP INC METABOLIC PANEL COMPREHEN 74130 [facility] SIVE 4 HOSP INC HOSP INC METABOLIC PANEL CREATINE 69669 [facility] KINASE 4 HOSP INC HOSP INC TOTAL BLOOD 46842 [facility] COUNT 4 HOSP INC HOSP INC COMPLETE AUTO&[place] [address] [facility] TROPONIN 4 HOSP INC HOSP INC QUANTITAT KALEB CREATINE 84745 [facility] KINASE MB 4 HOSP INC HOSP INC FRACTION ONLY RADIOLOGI 09922 [facility] C 4 HOSP INC HOSP INC EXAMINATI ON CHEST SINGLE VIEW FRONTAL COLLECTIO 22870 [facility] N VENOUS 4 HOSP INC HOSP INC BLOOD VENIPUNCT URE DUP-SCAN 36489 [facility] IBARRA LXTR 3 ANTOINE ART/ARTL RADIOLOGY BPGS ASSOC UNI/LMTD STUDY DUP-SCAN 56292 [facility] DAWSON LXTR 3 KIMBERLEY ART/ARTL RADIOLOG[facility] BP[facility] ASSOC UNI/LMTD STUDY CATH PLMT 78129 CARDIO YODIT L HRT & 3 AND KISHORE ARTS ELECTRO W/NJX & SPECIALIS ANGIO IMG S&I LEFT 3722 [facility] HEART 3 [place] CARDIAC D D CATHETERI REGIONAL REGIONAL ZATION HOS HOS CORONARY 8856 [facility] ARTERIOGR 3 [facility] APHY D D USING TWO REGIONAL REGIONAL HOS HOS CATHETERS ANGIOCARD 8853 [facility] [place] [facility] IOGRAPHY 3 [place] OF LEFT D D HEART REGIONAL REGIONAL STRUCTURE HOS HOS S INITIAL 53295 [facility] 3 AND KISHORE CARE/DAY ELECTRO 70 SPECIALIS MINUTES RADIOLOGI 18476 LEIA YOUNGER BALDEMAR C 3 EXAMINATI RADIOLOGY ON CHEST ASSOC SINGLE VIEW FRONTAL RADIOLOGI 83929 PREMIER RAMOS C EXAM 3 IMAGING & KIMBERLEY CHEST 2 VIEWS INTERVENT FRONTAL&[place] [address] [facility] TROPONIN 3 HOSP INC HOSP INC QUANTITAT KALEB BLOOD 54044 [facility] COUNT 3 HOSP INC HOSP INC COMPLETE AUTO&AUTO DIFRNTL WBC COLLECTIO [address] [facility] MARGIE [employer] N VENOUS 3 HOSP INC HOSP INC BLOOD VENIPUNCT URE CREATINE 16810 [facility] [employer] KINASE MB 3 [place] [address] [facility] INFUSION 3 HOSP INC HOSP INC HYDRATION INITIAL 31 MIN-1 HOUR CREATINE 59352 [facility] HOSP INC TOTAL ECG 26770 [facility] [place] [employer] ROUTINE 3 HOSP INC HOSP INC ECG W/LEAST 12 LDS TRCG ONLY W/O I&R COMPREHEN 05145 [facility] MARGIE [employer] SIVE 3 HOSP INC HOSP INC METABOLIC PANEL OBSERVATI [address] [facility] TIMI COR ON/INPATI [address] [facility] 40 MINUTES COMPREHEN 70530 [facility] Snoox SIVE 3 HOSP INC HOSP INC METABOLIC PANEL ECG 57638 [facility] [place] MARGIE [employer] TV ROUTINE 3 HOSP INC HOSP INC ECG W/LEAST 12 LDS TRCG ONLY W/O I&R CREATINE 97791 [facility] MARGIE CO KINASE 3 HOSP INC HOSP INC TOTAL CREATINE 49061 [facility] [employer] KINASE MB 3 HOSP INC HOSP INC FRACTION ONLY COLLECTIO 42034 [facility] [place] S[employer]ox N VENOUS 3 HOSP INC HOSP INC BLOOD VENIPUNCT URE BLOOD 86693 [facility] COUNT 3 HOSP INC HOSP INC COMPLETE AUTO&[place] [address] [facility] TROPONIN 3 HOSP [facility] HOSP [facility] QUANTITAT KALEB RADIOLOGI 52742 [facility] C 3 HOSP [facility] HOSP [facility] EXAMINATI ON CHEST SINGLE VIEW FRONTAL Encounters Encounter Start End Date Code Location Performer Type Date [facility] 7 7 [facility] 7 PHYSICIAN A T [facility]ISIT S GROUP 40 MINUTES [facility] - 7 7 [facility] 7 [facility] - 7 [facility] OFF[facility] 91354 MEEKS MEEKS OUTPATIEN 6 6 [facility] 20 MINUTES CRITICAL [facility] ACCESS 6 6 HOSP [facility] HOSPITAL EMERGENCY 32030 EMERGENCY [place] II 6 6 COVERAGE JAM DEPARTMEN T VISIT CORPORATI HIGH/URGE NT SEVERITY EMERGENCY [address] [facility] 6 6 HOSP INC DEPARTMEN T VISIT MODERATE SEVERITY HOSPITAL [facility] - 5 5 [place] OUTPATIEN D T REGIONAL HOS EMERGENCY 19383 [facility] 5 5 KASHMIR CAR DEPARTMEN EMERGENCY T VISIT SERVI MODERATE SEVERITY EMERGENCY 43875 [facility] [place] VISIT D HIGH REGIONAL SEVERITY& HOS THREAT [facility] PIERSON - 5 5 [place] OUTPATIEN D T REGIONAL HOS CRITICAL [facility] ACCESS 5 5 HOSP [facility] HOSPITAL EMERGENCY [address] [facility] 5 5 HOSP INC DEPARTMEN T VISIT MODERATE SEVERITY EMERGENCY 95238 EMERGENCY YAZ 5 5 COVERAGE MARYELLEN DEPARTMEN T VISIT CORPORATI HIGH/URGE NT SEVERITY CRITICAL [facility] ACCESS 4 4 HOSP INC HOSPITAL EMERGENCY 92173 [facility] 4 4 HOSP INC DEPARTMEN T VISIT MODERATE SEVERITY EMERGENCY 36583 EMERGENCY [facility] COR 4 4 COVERAGE DEPARTMEN T VISIT CORPORATI HIGH/URGE NT SEVERITY EMERGENCY 31161 DAVID DAILY ALYSSA 3 3 MEDICAL DEPARTMEN GROUP, T VISIT [facility] MODERATE SEVERITY EMERGENCY 30343 [facility] 3 3 [place] DEPARTMEN D T VISIT REGIONAL HIGH/URGE HOS NT SEVERITY HOSPITAL [facility] - 3 3 [place] OUTPATIEN D T REGIONAL HOS HOSPITAL PIERSON - 3 3 [place] OUTPATIEN D T REGIONAL HOS EMERGENCY 64399 DC GONG 3 3 EMERGENCY GRE DEPARTMEN SERVICES T VISIT HIGH/URGE NT SEVERITY EMERGENCY 25515 [facility] 3 3 [place] DEPARTMEN D T VISIT REGIONAL LOW/MODER HOS SEVERITY HOSPITAL [facility]ERSON - 3 3 [place] INPATIENT D REGIONAL HOS CRITICAL [facility] ACCESS 3 3 HOSP [facility] HOSPITAL EMERGENCY 78562 [facility] DEPT 3 3 HOSP INC VISIT HIGH SEVERITY& THREAT FUNCJ EMERGENCY 57382 [facility] 3 3 HOSP INC DEPARTMEN T VISIT MODERATE SEVERITY CRITICAL [facility] ACCESS 3 3 HOSP INC HOSPITAL EMERGENCY 97766 EMERGENCY [facility] 3 3 COVERAGE DEPARTMEN T VISIT CORPORATI HIGH/URGE NT SEVERITY OFFICE 15305 PRAKASH DUVALL II OUTPATIEN 3 3 O MEDICAL DENNISE T VISIT 15 ASSOCIATE MINUTES
--- OUTSIDE RECORDS SUMMARY | 2017-05-17 02:11 | External Medical Summary Rpt | CCD ---
Author Author , ELSY Organization ELSY Address Unknown Phone [email or web address] Care Team Providers Care Trap Puller Name Role Phone RHONDA ELLIS Unavailable Unavailable YOUNGER BALDEMAR, AREN MCDERMOTT Unavailable Unavailable BEINEKE, BEINEKE Unavailable Unavailable [facility] Unavailable Unavailable [facility], [facility] ZIMMERMAN, ZIMMERMAN Unavailable Unavailable BUSLER CAR, BUSLER Unavailable Unavailable CAR [facility] Unavailable Unavailable SPECIALIS, [facility] EUNICE KIMBERLEY, EUNICE Unavailable Unavailable KIMBERLEY YAZ MARYELLEN, YAZ Unavailable Unavailable MARYELLEN FED[facility]ATED Unavailable Unavailable TRANSPORTATION SER, [facility] YODIT KSIHORE, Unavailable Unavailable YODIT KISHORE [facility] Unavailable Unavailable INC, [facility], Unavailable Unavailable [facility] Unavailable Unavailable [facility], [facility] Unavailable Unavailable REGIONAL HOS, [facility] KILLIAN ALYSSA, KILLIAN ALYSSA Unavailable Unavailable DUVALL II DENNISE, DUVALL Unavailable Unavailable II DENNISE [facility], Unavailable Unavailable PLLC, [facility], [facility] Unavailable Unavailable ASSOCIATE, [facility] AD[facility]IST[facility]ATOR STACEY DELGADILLO Unavailable Unavailable [facility]TO[facility] Unavailable Unavailable [facility], [facility] RAMOS IKMBERLEY, RAMOS Unavailable Unavailable KIMBERLEY GONG GRE, GONG Unavailable Unavailable [facility], [facility] Unavailable Unavailable [facility], [facility] DONTRELL, Unavailable Unavailable DONTRELL [facility], Unavailable Unavailable [facility] Un[facility], [facility] WOODY II JAM, WOODY Unavailable Unavailable II JAM CONSTANTINO CHARLIE, Unavailable Unavailable MEEKS CHARLIE MEEKS CHARLIE, Unavailable Unavailable MEEKS CHARLIE Purpose Continuity of Care Document - 05-11-2013 through 2016 Problems Code Diagnosis DOS Provider Status R42 DIZZINESS 03-05-2017 [facility] R079 CHEST PAIN 02-22-2017 [facility] R69 ILLNESS 02-21-2017 [facility] UNSPECIFIED TRANSPORTAT ION SER I10 ESSENTIAL 02-14-2017 [facility] HYPERTENSIO INC N I208 OTHER FORMS 02-14-2017 [facility] PECTORIS GROUP 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 [id number] ASHD SNOQUALMIE 02-14-2017 [facility]REY [facility] W/UNS INC ANGINA PECTORIS R9439 ABNORMAL 02-14-2017 [facility] RESULT OTH PHYSICIANS CARDIOVASCU GROUP LR FUNCTION STUDY Z720 TOBACCO USE 02-14-2017 [facility] Z950 PRESENCE OF 02-14-2017 [facility] CARDIAC [facility] PACEMAKER INC R0602 SHORTNESS 02-11-2017 [facility] OF BREATH PHYSICIANS GROUP R0789 OTHER CHEST 02-11-2017 [facility] PAIN PHYSICIANS GROUP R9431 ABNORMAL 02-11-2017 [facility] ELECTROCARD [facility] IOGRAM INC 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 I2510 ASHD SNOQUALMIE 10-04-2016 [facility] 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 [...] [facility] N390 URINARY 02-09-2016 [facility] INFECTION SITE NOT SPECIFIED 38509 PAIN IN 02-17-2015 [facility] JOINT, [place] [facility] 2724 OTHER AND 01-23-2015 [facility] UNSPECIFIED [place] [facility] HYPERLIPIDE [facility] CHRISTOPHER 4019 UNSPECIFIED 01-23-2015 [facility] ESSENTIAL [place] HYPERTENSIO REGIONAL N HOS 64338 CORONARY 01-23-2015 [facility] ATHEROSCLER [place] OSIS SN[place]QUALMIE REGIONAL CORONARY HOS ARTERY 71938 CLOSED 01-23-2015 [facility] DISLOCATION [place] OF [facility]AL SHOULDER HOS UNSPECIFIED SITE 93186 CLOSED 01-23-2015 [facility] DISLOCATION SERVI OF HUMERUS E8888 OTHER FALL 01-23-2015 [facility] N [facility]GENCY SERVI V4501 CARDIAC 01-23-2015 [facility]ER [facility] V4589 OTHER 01-23-2015 [facility] POSTSURGICA [place] L STATUS REGIONAL OTHER HOS V5866 LONG-TERM 01-23-2015 [facility] USE OF [place] ASPIRIN REGIONAL HOS V5869 LONG-TERM 01-23-2015 [facility] (CURRENT) [place] USE OF REGIONAL OTHER HOS MEDICATIONS 4589 UNSPECIFIED 12-27-2014 [facility] HYPOTENSION 20527 OTHER 12-27-2014 [facility] AND HOSP INC FATIGUE 67511 DEHYDRATION 04-01-2014 [facility] INC 7962 ELEVATED BP 04-01-2014 [facility] & WITHOUT DX [facility] HYPERTENSIO N 9222 CONTUSION 06-06-2013 [facility] WALL V6709 FOLLOW-UP 06-06-2013 [facility] EXAMINATION RADIOLOGY FOLLOWING ASSOC OTHER SURGERY 9961 [facility] COMP 06-03-2013 [facility] OT RADIOLOGY VASCULAR ASS[place] DEVICE IMPLANT&[place] [address] HEMATOMA 06-03-2013 [facility] COMPLICATIN [place] G A REGIONAL PROCEDURE HOS NEC 11277 CHEST PAIN 06-01-2013 CARDIO AND UNSPECIFIED ELECTRO SPECIALIS 99105 ACUT MN 05-31-2013 [facility] SUBENDOCARD [place] IAL INFARCT REGIONAL INIT EPIS HOS CARE 7850 UNSPECIFIED 05-31-2013 [facility] RADIOLOGY TACHYCARDIA ASSOC V169 FAMILY 05-31-2013 [facility] HISTORY OF [place] UNSPECIFIED REGIONAL MALIGNANT HOS NEOPLASM V173 FAMILY 05-31-2013 [facility] HISTORY OF [place] ISCHEMIC REGIONAL HEART HOS DISEASE 51337 ACUTE 05-30-2013 [facility] INFARCT SPITALIS UNSPEC SITE INIT EPIS CARE 4011 ESSENTIAL 05-11-2013 [facility] [facility], BENIGN ASSOCIATE Procedures Procedure [place] [address] VIKI CARRASCO HEAD/BRAI 7 MEDICAL N W/O IMAGING CONTRAST ASS MATERIAL RADIOLOGI 37002 VIKI ZIMMERMAN C 7 MEDICAL EXAMINATI IMAGING ON CHEST ASS SINGLE VIEW FRONTAL NONEMERG A0120 FEDERATED FEDERATED TRNSPRT: 7 [facility] TRANSPORT TRANSPORT MTN ATION SER ATION SER AREA/OTH SYS BLOOD 82973 [facility] COUNT 7 [facility] COMPLETE INC INC AUTO&AUTO DIFRNTL WBC BASIC 51692 [facility] METABOLIC 7 [facility] PANEL INC INC CALCIUM TOTAL PRQ 53837 LONG JOSEPHON TRLUML 7 [facility] CORONARY INC INC STENT W/ANGIO ONE ART/BRNCH COAGULATI 43895 [facility] ON TIME 7 [facility] ACTIVATED INC INC CATHETER C1725 LONG JOSEPHON TRANSLUMI 7 [facility] NAL INC INC ANGIOPLAS TY NON-LASER GUIDE C1769 LONG AL[facility]ES WIRE 7 [facility] INC INC STENT C1876 LONG JOSEPHON NON-COATE 7 [facility] D/NON-COV INC INC ERED W/DELIVER Y SYSTEM IV DOP 41583 [facility] PRITI&/OR 7 [facility] PRESS INC INC C/JEN RSRV CALLY 1ST VSL ECG 82256 [facility] SRIVASTAV ROUTINE 7 PHYSICIAN A ECG S GROUP W/LEAST 12 LDS I&R ONLY ECG 19319 LONG ALVES ROUTINE 7 [facility] ECG INC INC W/LEAST 12 LDS TRCG ONLY W/O I&R NONEMERG A0120 FEDERATED FEDERATED TRNSPRT: 7 [facility]I-BUS TRANSPORT TRANSPORT MTN ATION SER ATION SER AREA/OTH SYS NONEMERG A0120 FEDERATED FEDERATED TRNSPRT: 7 [facility]I-BUS TRANSPORT TRANSPORT MTN ATION SER ATION SER AREA/OTH SYS MYOCARDIA 09226 [facility]ES L SPECT 7 [facility] MULTIPLE INC INC STUDIES TECHNETIU A9502 LONG Vera TC-99M 7 [facility] TETROFOSM INC INC IN DX PER STUDY DOSE CV STRS 36181 [facility] ALVES TST 7 [facility] XERS&/OR INC INC RX CONT ECG TRCG ONLY ECHO 54052 LONG ALVES TTHRC R-T 7 [facility] 2D INC INC W/WOM-MOD E COMPL SPEC&COLR D ECG 89452 [facility] ROUTINE 7 MEM HOSP MEM HOSP ECG INC INC W/LEAST 12 LDS TRCG ONLY W/O I&R NONEMERG A0120 FEDERATED FEDERATED TRNSPRT: 7 MINI-BUS TRANSPORT TRANSPORT MTN ATION SER ATION SER AREA/OTH SYS SBSQ 05671 RHONDA ELLIS NURSING 7 FACILITY CARE/DAY E/M STABLE 10 MIN URNLS DIP 25798 [facility] 6 HOSP INC HOSP INC STICK/TAB LET REAGENT AUTO MICROSCOP Y BLOOD 51727 [facility] COUNT 6 HOSP INC HOSP INC COMPLETE AUTO&AUTO DIFRNTL WBC COMPREHEN 85503 [facility] SIVE 6 HOSP INC HOSP INC METABOLIC PANEL BLOOD 16213 [facility] OCCULT 6 HOSP INC HOSP INC FECAL HGB DETER IA QUAL FECES 1-3 COLLECTIO 72103 [facility] N VENOUS 6 HOSP INC HOSP INC BLOOD VENIPUNCT URE CULTURE 76365 [facility] BACTERIAL 6 HOSP INC HOSP INC QUANTTATI VE COLONY COUNT URINE CULTURE 32928 [facility] TYPING 6 HOSP INC HOSP INC IMMUNOLOG IC OTH/THN IMMUNOFLU ORES CT UPPER 99413 [facility] EXTREMITY 5 [place] W/O D D CONTRAST REGIONAL [place] [address] [facility] 5 KASHMIR CAR DISLC EMERGENCY W/MANIPUL SERVI ATION W/O ANES RADEX 07214 [facility] SHOULDER 5 [place] 1 VIEW D D REGIONAL REGIONAL HOS HOS RADEX 18195 [facility] SHOULDER 5 [place] COMPLETE D D MINIMUM 2 REGIONAL REGIONAL VIEWS HOS HOS THER 14431 [facility] PROPH/DX 5 [place] NJX IV D D PUSH REGIONAL REGIONAL SINGLE/1S H[place] H[place] T SBST/[place] [address] [facility] SHOULDER 5 [place] DISLC D D W/MANIPUL REGIONAL REGIONAL ATION REQ HOS HOS ANES CLOSED 7971 [facility] MCFARLAN REDUCTION 5 [place] OF D D DISLOCATI REGIONAL [place] [address] [facility] INFUSION 5 HOSP INC HOSP INC HYDRATION INITIAL 31 MIN-1 HOUR COLLECTIO 24982 [facility] N VENOUS 4 HOSP INC HOSP INC BLOOD VENIPUNCT URE COMPREHEN 84004 [facility] SIVE 4 HOSP INC HOSP INC METABOLIC PANEL BLOOD 01282 [facility] COUNT 4 HOSP INC HOSP INC COMPLETE AUTO&AUTO DIFRNTL WBC BLOOD 55785 [facility] COUNT 4 HOSP INC HOSP INC COMPLETE AUTO&[place] [address] [facility] TROPONIN 4 HOSP INC HOSP INC QUANTITAT KALEB CREATINE 67738 [facility] KINASE 4 HOSP INC HOSP INC TOTAL RADIOLOGI 95977 [facility] C 4 HOSP INC HOSP INC EXAMINATI ON CHEST SINGLE VIEW FRONTAL CREATINE 53595 [facility] KINASE MB 4 HOSP INC HOSP INC FRACTION ONLY COMPREHEN 04977 [facility] SIVE 4 HOSP INC HOSP INC METABOLIC PANEL COLLECTIO 90716 [facility] N VENOUS 4 HOSP INC HOSP INC BLOOD VENIPUNCT URE DUP-SCAN 79009 [facility] STACEY LXTR 3 ANTOINE ART/ARTL RADIOLOGY [facility]GS ASSOC UNI/LMTD STUDY DUP-SCAN 35857 [facility] EUNICE LXTR 3 KIMBERLEY ART/ARTL RADIOLOGY BP[facility] ASSOC UNI/LMTD STUDY CATH PLMT 03036 CARDIO YODIT L HRT & 3 AND KISHORE ARTS ELECTRO W/NJX & SPECIALIS ANGIO IMG S&I ANGIOCARD 8853 [facility] IOGRAPHY 3 [place] OF LEFT D D HEART REGIONAL REGIONAL STRUCTURE HOS HOS S LEFT 3722 [facility] HEART 3 [place] CARDIAC D D CATHETERI REGIONAL REGIONAL ZATION HOS HOS CORONARY 8856 [facility] ARTERIOGR 3 [place] APHY D D USING TWO REGIONAL REGIONAL HOS HOS CATHETERS RADIOLOGI 51808 [facility] BALDEMAR C 3 EXAMINATI RADIOLOGY ON CHEST ASSOC SINGLE VIEW FRONTAL INITIAL 69782 [facility] 3 AND KISHORE CARE/DAY ELECTRO [address] [place] [address] [facility] TROPONIN 3 HOSP INC HOSP INC QUANTITAT KALEB BLOOD 24882 [facility] COUNT 3 HOSP INC HOSP INC COMPLETE AUTO&AUTO DIFRNTL WBC RADIOLOGI 73811 [facility] EXAM 3 IMAGING & KIMBERLEY CHEST 2 VIEWS INTERVENT FRONTAL&L I ATERAL ECG 10912 [facility] MARGIE SpanDeX ROUTINE 3 HOSP INC HOSP INC ECG W/LEAST 12 LDS TRCG ONLY W/O I&R CREATINE 30996 [facility] MARGIE SpanDeX KINASE 3 HOSP INC HOSP INC TOTAL OBSERVATI 97884 [facility] TIMI COR ON/INPATI 3 [facility] S CARE 40 MINUTES COLLECTIO 46226 [facility] [place] N VENOUS 3 HOSP INC HOSP INC BLOOD VENIPUNCT URE CREATINE 38038 [facility] [place] KINASE MB 3 [place] [address] [facility] [place] INFUSION 3 HOSP INC HOSP INC HYDRATION INITIAL 31 MIN-1 HOUR COMPREHEN 97848 [facility] [place] SIVE 3 HOSP INC HOSP INC METABOLIC PANEL COMPREHEN 98843 [facility] SIVE 3 HOSP INC HOSP INC METABOLIC PANEL CREATINE 48781 [facility] MARGIE SpanDeX KINASE MB 3 HOSP INC HOSP INC FRACTION ONLY COLLECTIO 40505 [facility] CSA Medical N VENOUS 3 HOSP INC HOSP INC BLOOD VENIPUNCT URE CREATINE 27745 [facility] MARGIE SpanDeX KINASE 3 HOSP INC HOSP INC TOTAL ECG 02556 [facility] MARGIE SpanDeX ROUTINE 3 HOSP INC HOSP INC ECG W/LEAST 12 LDS TRCG ONLY W/O I&R BLOOD 12283 [facility]ARGIE SpanDeX COUNT 3 HOSP INC HOSP INC COMPLETE AUTO&[place] [address] [facility] TROPONIN 3 HOSP [facility] QUANTITAT KALEB RADIOLOGI 97015 [facility] C 3 HOSP [facility] EXAMINATI ON CHEST SINGLE VIEW FRONTAL Encounters Encounter Start End Date Code Location Performer Type Date [facility] LONG - 7 7 [facility] - 7 7 [facility] OFF[facility] 95670 [facility] 7 7 PHYSICIAN A T [facility]ISIT S GROUP 40 MINUTES [facility] LONG - 7 7 [facility] LONG - 7 7 [facility] 29[facility] 20 MINUTES EMERGENCY 19598 EMERGENCY MCGRANN II 6 6 COVERAGE JAM DEPARTMEN T VISIT CORPORATI HIGH/URGE NT SEVERITY EMERGENCY 42843 [facility] 6 6 HOSP [facility] DEPARTMEN T VISIT MODERATE SEVERITY CRITICAL [facility] ACCESS 6 6 [facility] PIERSON - 5 5 [place] OUTPATIEN D T REGIONAL HOS EMERGENCY 21597 [facility] [place] VISIT D HIGH REGIONAL SEVERITY& HOS THREAT [facility] MCFARLAN - 5 5 [place] OUTPATIEN D T REGIONAL HOS EMERGENCY 44427 [facility] 5 5 KASHMIR CAR DEPARTMEN EMERGENCY T VISIT SERVI MODERATE SEVERITY CRITICAL [facility] ACCESS 5 5 HOSP [facility] HOSPITAL EMERGENCY 30819 [facility] 5 5 HOSP INC DEPARTMEN T VISIT MODERATE SEVERITY EMERGENCY 80779 EMERGENCY YAZ 5 5 COVERAGE MARYELLEN DEPARTMEN T VISIT CORPORATI HIGH/URGE NT SEVERITY CRITICAL [facility] ACCESS 4 4 HOSP [facility] HOSPITAL EMERGENCY 21386 [facility] 4 4 HOSP INC DEPARTMEN T VISIT MODERATE SEVERITY EMERGENCY 55037 EMERGENCY [facility] COR 4 4 COVERAGE DEPARTMEN T VISIT CORPORATI HIGH/URGE NT SEVERITY EMERGENCY 18069 DAVID [facility]IG[facility] 3 3 MEDICAL DEPARTMEN GROUP, T VISIT [facility] MODERATE SEVERITY HOSPITAL PIERSON - 3 3 [place] OUTPATIEN D T REGIONAL HOS EMERGENCY 95560 [facility] 3 3 [place] DEPARTMEN D T VISIT REGIONAL HIGH/URGE HOS NT SEVERITY EMERGENCY 78884 [facility] GONG 3 3 EMERGENCY GRE DEPARTMEN SERVICES T VISIT HIGH/URGE NT SEVERITY EMERGENCY 29642 [facility] 3 3 [place] DEPARTMEN D T VISIT REGIONAL LOW/MODER HOS SEVERITY [facility] - [facility] REG[facility]AL HOS CRITICAL [facility] ACCESS 3 3 HOSP [facility] HOSPITAL EMERGENCY 42682 [facility] DEPT 3 3 HOSP INC VISIT HIGH SEVERITY& THREAT FUNCJ CRITICAL [facility] ACCESS 3 3 HOSP [facility] HOSPITAL EMERGENCY 23721 [facility] 3 3 HOSP INC DEPARTMEN T VISIT MODERATE SEVERITY EMERGENCY 95292 EMERGENCY [facility] 3 3 COVERAGE DEPARTMEN T VISIT CORPORATI HIGH/URGE NT SEVERITY OFFICE 59870 PRAKASH DUVALL II OUTPATIEN 3 3 O MEDICAL DENNISE T VISIT 15 ASSOCIATE MINUTES
--- OUTSIDE RECORDS SUMMARY | 2017-05-17 02:11 | External Medical Summary Rpt | CCD ---
Author Author , ELSY Organization ELSY Address Unknown Phone [email or web address] Care Team Providers Care Buncher Machine Name Role Phone RHONDA ELLIS Unavailable Unavailable YOUNGER BALDEMAR, AREN MCDERMOTT Unavailable Unavailable BEINEKE, BEINEKE Unavailable Unavailable [facility] Unavailable Unavailable [facility], [facility] ZIMMERMAN, ZIMMERMAN Unavailable Unavailable BUSLER CAR, BUSLER Unavailable Unavailable [facility] Unavailable Unavailable SPECIALIS, [facility] EUNICE KIMBERLEY, EUNICE Unavailable Unavailable KIMBERLEY YAZ MARYELLEN, YAZ Unavailable Unavailable MARYELLEN [facility] Unavailable Unavailable TRANSPORTATION SER, [facility] YODIT KISHORE, Unavailable Unavailable YODIT KISHORE [facility] Unavailable Unavailable INC, [facility], Unavailable Unavailable [facility] Unavailable Unavailable [facility]ING [facility], [facility] Unavailable Unavailable REGIONAL HOS, [facility] KILLIAN ALYSSA, KILLIAN ALYSSA Unavailable Unavailable DUVALL II DENNISE, DUVALL Unavailable Unavailable II DENNISE [facility], Unavailable Unavailable PLLC, [facility], [facility] Unavailable Unavailable ASSOCIATE, [place] [facility] [employer] REPRESENTATIVE STACEY DELGADILLO Unavailable Unavailable ANTO[facility] Unavailable Unavailable [facility], [facility] RAMOS KIMBERLEY, RAMOS Unavailable Unavailable KIMBERLEY GONG GRE, GONG Unavailable Unavailable [facility], [facility] Unavailable Unavailable [facility], [facility] DONTRELL, Unavailable Unavailable [facility]RE[facility], Unavailable Unavailable [facility] Unavailable Unavailable [facility], [facility] WOODY II JAM, WOODY Unavailable Unavailable II JAM CONSTANTINO CHARLIE, Unavailable Unavailable MEEKS CHARLIE MEEKS CHARLIE, Unavailable Unavailable MEEKS CHARLIE Purpose Continuity of Care Document - 05-11-2013 through 2016 Problems Code Diagnosis DOS Provider Status R42 DIZZINESS 03-05-2017 [place] [facility] R079 CHEST PAIN 02-22-2017 [facility] UNSPECIFIED MEDICAL IMAGING ASS R69 ILLNESS 02-21-2017 [facility] UNSPECIFIED TRANSPORTAT ION SER I10 ESSENTIAL 02-14-2017 [facility] HYPERTENSIO INC N I208 OTHER FORMS 02-14-2017 [facility] OF ANGINA PHYSICIANS PECTORIS GROUP [id number] [facility] [place] 02-14-2017 [facility] COR ART PHYSICIANS W/OTH FORMS GROUP ANGINA PECTORIS [id number] [facility] [place] 02-14-2017 [facility]Y [facility] W/UNS INC ANGINA PECTORIS R9439 ABNORMAL 02-14-2017 [facility] RESULT OTH PHYSICIANS CARDIOVASCU GROUP LR FUNCTION STUDY Z720 TOBACCO USE 02-14-2017 [facility] INC Z950 PRESENCE OF 02-14-2017 [facility]AC [facility] PACEMAKER INC R0602 SHORTNESS 02-11-2017 [facility] OF BREATH PHYSICIANS GROUP R0789 OTHER CHEST 02-11-2017 [facility] PAIN PHYSICIANS GROUP R9431 ABNORMAL 02-11-2017 [facility] ELECTROCARD [facility] IOGRAM INC 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 I2510 [facility] [place] 10-04-2016 [facility] 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 [...] [facility] N390 URINARY 02-09-2016 [facility] INFECTION SITE NOT SPECIFIED 97425 PAIN IN 02-17-2015 [facility] JOINT, [place] [facility] 2724 OTHER AND 01-23-2015 [facility] UNSPECIFIED [place] [facility] HYPERLIPIDE HOS CHRISTOPHER 4019 UNSPECIFIED 01-23-2015 [facility] ESSENTIAL [place] HYPERTENSIO REGIONAL N HOS 13668 CORONARY 01-23-2015 [facility] ATHEROSCLER [place] REGIONAL CORONARY HOS ARTERY 75867 CLOSED 01-23-2015 [facility] DISLOCATION [place] OF REGIONAL SHOULDER HOS UNSPECIFIED SITE 88370 CLOSED 01-23-2015 [facility] DISLOCATION SERVI OF HUMERUS E8888 OTHER FALL 01-23-2015 [facility] N [facility] SERVI V4501 CARDIAC 01-23-2015 [facility]ER [facility] V4589 OTHER 01-23-2015 [facility] POSTSURGICA [place] L STATUS REGIONAL OTHER HOS V5866 LONG-TERM 01-23-2015 [facility] USE OF [place] ASPIRIN REGIONAL HOS V5869 LONG-TERM 01-23-2015 [facility] (CURRENT) [place] USE OF REGIONAL OTHER HOS MEDICATIONS 4589 UNSPECIFIED 12-27-2014 [facility] HOS[facility] INC HYPOTENSION 68364 OTHER 12-27-2014 [facility] MALAISE AND HOSP INC FATIGUE 36754 DEHYDRATION 04-01-2014 [facility] INC 7962 ELEVATED BP 04-01-2014 [facility] & WITHOUT DX [facility] HYPERTENSIO N 9222 CONTUSION 06-06-2013 [facility] WALL V6709 FOLLOW-UP 06-06-2013 [facility] EXAMINATION RADIOLOGY FOLLOWING ASSOC OTHER SURGERY 9961 [facility] COMP 06-03-2013 [facility] OT RADIOLOGY VASCULAR ASSOC DEVICE IMPLANT&[place] [address] HEMATOMA 06-03-2013 [facility] COMPLICATIN [place] G A REGIONAL PROCEDURE HOS NEC 28870 CHEST PAIN 06-01-2013 CARDIO AND UNSPECIFIED ELECTRO SPECIALIS 77774 ACUT CA 05-31-2013 [facility] SUBENDOCARD [place] IAL INFARCT REGIONAL INIT EPIS HOS CARE 7850 UNSPECIFIED 05-31-2013 [facility] RADIOLOGY TACHYCARDIA ASSOC V169 FAMILY 05-31-2013 [facility] HISTORY OF [place] UNSPECIFIED REGIONAL MALIGNANT HOS NEOPLASM V173 FAMILY 05-31-2013 [facility] HISTORY OF [place] ISCHEMIC REGIONAL HEART HOS DISEASE 10235 ACUTE 05-30-2013 [facility] HOSPITAL-HO INFARCT SPITALIS UNSPEC SITE INIT EPIS CARE 4011 ESSENTIAL 05-11-2013 [place] HYPERTEN[facility]O MEDICAL N, BENIGN ASSOCIATE Procedures Procedure [place] [address] VIKI CARRASCO HEAD/BRAI 7 MEDICAL N W/O IMAGING CONTRAST ASS MATERIAL RADIOLOGI 86515 VIKI ZIMMERMAN C 7 MEDICAL EXAMINATI IMAGING ON CHEST ASS SINGLE VIEW FRONTAL NONEMERG A0120 FEDERATED FEDERATED TRNSPRT: 7 [facility]I-BUS TRANSPORT TRANSPORT MTN ATION SER ATION SER AREA/OTH SYS BLOOD 94339 [facility] COUNT 7 MEM [facility] MEM [facility]OS[facility] COMPLETE INC INC AUTO&AUTO DIFRNTL WBC BASIC 87811 [facility] METABOLIC 7 [facility] PANEL INC INC CALCIUM TOTAL PRQ 83786 LONG JOSEPHON TRLUML 7 [facility] CORONARY INC INC STENT W/ANGIO ONE ART/BRNCH COAGULATI 82033 [facility] ON TIME 7 [facility] ACTIVATED INC INC CATHETER C1725 LONG JOESPHON TRANSLUMI 7 [facility] NAL INC INC ANGIOPLAS TY NON-LASER GUIDE C1769 LONG AL[facility] WIRE 7 [facility] INC INC STENT C1876 LONG JOSEPHON NON-COATE 7 [facility] D/NON-COV INC INC ERED W/DELIVER Y SYSTEM IV DOP 56713 LONG [facility] PRITI&/OR 7 [facility] PRESS INC INC C/JEN RSRV CALLY 1ST VSL ECG 12538 [facility] SRIVASTAV ROUTINE 7 PHYSICIAN A ECG S GROUP W/LEAST 12 LDS I&R ONLY ECG 87462 LONG ALVES ROUTINE 7 [facility] ECG INC INC W/LEAST 12 LDS TRCG ONLY W/O I&R NONEMERG A0120 FEDERATED FEDERATED TRNSPRT: 7 [facility]-BUS TRANSPORT TRANSPORT MTN ATION SER ATION SER AREA/OTH SYS NONEMERG A0120 FEDERATED FEDERATED TRNSPRT: 7 MINI-BUS TRANSPORT TRANSPORT MTN ATION SER ATION SER AREA/OTH SYS MYOCARDIA 05853 [facility] L SPECT 7 [facility] MULTIPLE INC INC STUDIES TECHNETIU A9502 LONG Vera TC-99M 7 [facility] TETROFOSM INC INC IN DX PER STUDY DOSE CV STRS 66332 LONG AL[facility]ES TST 7 [facility] XERS&/OR INC INC RX CONT ECG TRCG ONLY ECHO 43900 LONG AL[facility]ES TTHRC R-T 7 [facility] 2D INC INC W/WOM-MOD E COMPL SPEC&COLR D ECG 82035 [facility] ROUTINE 7 MEM HOSP MEM HOSP ECG INC INC W/LEAST 12 LDS TRCG ONLY W/O I&R NONEMERG A0120 FEDERATED FEDERATED TRNSPRT: 7 MINI-BUS TRANSPORT TRANSPORT MTN ATION SER ATION SER AREA/OTH SYS SBSQ 71049 RHONDA ELLIS NURSING 7 FACILITY CARE/DAY E/M STABLE 10 MIN URNLS DIP 32960 [facility] 6 HOSP INC HOSP INC STICK/TAB LET REAGENT AUTO MICROSCOP Y BLOOD 55903 [facility] COUNT 6 HOSP INC HOSP INC COMPLETE AUTO&AUTO DIFRNTL WBC COMPREHEN 84514 [facility] SIVE 6 HOSP INC HOSP INC METABOLIC PANEL BLOOD 76348 [facility] OCCULT 6 HOSP INC HOSP INC FECAL HGB DETER IA QUAL FECES 1-3 COLLECTIO 38325 [facility] N VENOUS 6 HOSP INC HOSP INC BLOOD VENIPUNCT URE CULTURE 93455 [facility] BACTERIAL 6 HOSP INC HOSP INC QUANTTATI VE COLONY COUNT URINE CULTURE 26176 [facility] TYPING 6 HOSP INC HOSP INC IMMUNOLOG IC OTH/THN IMMUNOFLU ORES CT UPPER 49051 [facility] EXTREMITY 5 [place] W/O D D CONTRAST REGIONAL [place] [address] [facility] 5 KASH[facility]IR CAR DISLC EMERGENCY W/MANIPUL SERVI ATION W/O ANES RADEX 85155 [facility] SHOULDER 5 [place] 1 VIEW D D REGIONAL REGIONAL HOS HOS RADEX 93088 [facility] SHOULDER 5 [place] COMPLETE D D MINIMUM 2 REGIONAL REGIONAL VIEWS HOS HOS THER 05835 [facility] PROPH/DX 5 [place] NJX IV D D PUSH REGIONAL REGIONAL SINGLE/1S HOS HOS T SBST/[place] [address] [facility] SHOULDER 5 [place] DISLC D D W/MANIPUL REGIONAL REGIONAL ATION REQ HOS HOS ANES CLOSED 7971 [facility] SPRAGGS REDUCTION 5 [place] OF D D DISLOCATI REGIONAL [place] [address] [facility] INFUSION 5 HOSP INC HOSP INC HYDRATION INITIAL 31 MIN-1 HOUR COLLECTIO 32163 [facility] N VENOUS 4 HOSP INC HOSP INC BLOOD VENIPUNCT URE COMPREHEN 67079 [facility] SIVE 4 HOSP INC HOSP INC METABOLIC PANEL BLOOD 31144 [facility] COUNT 4 HOSP INC HOSP INC COMPLETE AUTO&AUTO DIFRNTL WBC BLOOD 02894 [facility] COUNT 4 HOSP INC HOSP INC COMPLETE AUTO&[place] [address] [facility] TROPONIN 4 HOSP INC HOSP INC QUANTITAT KALEB CREATINE 71590 [facility] KINASE 4 HOSP INC HOSP INC TOTAL RADIOLOGI 85091 [facility] C 4 HOSP INC HOSP INC EXAMINATI ON CHEST SINGLE VIEW FRONTAL CREATINE 17669 [facility] KINASE MB 4 HOSP INC HOSP INC FRACTION ONLY COMPREHEN 36475 [facility] SIVE 4 HOSP INC HOSP INC METABOLIC PANEL COLLECTIO 18533 [facility] N VENOUS 4 HOSP INC HOSP INC BLOOD VENIPUNCT URE DUP-SCAN 81391 [facility] SATCEY LXTR 3 ANTOINE ART/ARTL RADIOLOGY BPGS ASSOC UNI/LMTD STUDY DUP-SCAN 15287 [facility] EUNICE LXTR 3 KIMBERLEY ART/ARTL RADIOLOGY BPGS ASSOC UNI/LMTD STUDY CATH PLMT 39803 CARDIO YODIT L HRT & 3 AND KISHORE ARTS ELECTRO W/NJX & SPECIALIS ANGIO IMG S&I ANGIOCARD 8853 [facility] IOGRAPHY 3 [place] OF LEFT D D HEART REGIONAL REGIONAL STRUCTURE HOS HOS S LEFT 3722 [facility] HEART 3 [place] CARDIAC D D CATHETERI REGIONAL REGIONAL ZATION HOS HOS CORONARY 8856 [facility] ARTERIOGR 3 [place] APHY D D USING TWO REGIONAL REGIONAL HOS HOS CATHETERS RADIOLOGI 68440 [facility] BAL[facility] C 3 EXAMINATI RADIOLOGY ON CHEST ASSOC SINGLE VIEW FRONTAL INITIAL 56989 [facility] 3 AND KISHORE CARE/DAY ELECTRO [address] [place] [address] [facility] TROPONIN 3 HOSP INC HOSP INC QUANTITAT KALEB BLOOD 48270 [facility] COUNT 3 HOSP INC HOSP INC COMPLETE AUTO&AUTO DIFRNTL WBC RADIOLOGI 32301 [facility] EXAM 3 IMAGING & KIMBERLEY CHEST 2 VIEWS INTERVENT FRONTAL&L I ATERAL ECG 65037 [facility] MARGIE [facility] ROUTINE 3 HOSP INC HOSP INC ECG W/LEAST 12 LDS TRCG ONLY W/O I&R CREATINE 02306 [facility] MARGIE [employer] KINASE 3 HOSP INC HOSP INC TOTAL OBSERVATI 15314 [facility] TIMI COR ON/INPATI 3 [facility] S CARE 40 MINUTES COLLECTIO 32733 [facility] [place] N VENOUS 3 HOSP INC HOSP INC BLOOD VENIPUNCT URE CREATINE 73896 [facility] [place] KINASE MB 3 [place] [address] [facility] INFUSION 3 HOSP INC HOSP INC HYDRATION INITIAL 31 MIN-1 HOUR COMPREHEN 18575 [facility] [place] [place] SIVE 3 HOSP INC HOSP INC METABOLIC PANEL COMPREHEN 06570 [facility] [place] SIVE 3 HOSP INC HOSP INC METABOLIC PANEL CREATINE 61277 [facility] MARGIE [employer] KINASE MB 3 HOSP INC HOSP INC FRACTION ONLY COLLECTIO 84187 [facility] [employer] N VENOUS 3 HOSP INC HOSP INC BLOOD VENIPUNCT URE CREATINE 09765 [facility] [place] [facility]ARGIE [employer] KINASE 3 HOSP INC HOSP INC TOTAL ECG 91992 [facility] MARGIE [employer] ROUTINE 3 HOSP INC HOSP INC ECG W/LEAST 12 LDS TRCG ONLY W/O I&R BLOOD 59329 [facility] MARGIE [employer] COUNT 3 HOSP INC HOSP INC COMPLETE AUTO&[place] [address] [facility] TROPONIN 3 [facility] QUANTITAT KALEB RADIOLOGI 71610 [facility] C 3 [facility] EXAMINATI ON CHEST SINGLE VIEW FRONTAL Encounters Encounter Start End Date Code Location Performer Type Date [facility] LONG - 7 7 [facility] LONG - 7 7 [facility] T OFFICE 82813 [facility] 7 7 PHYSICIAN A T [facility]ISIT S GROUP 40 MINUTES [facility] LONG - 7 7 [facility] LONG - 7 7 [facility] T OFFICE [address] [facility] 6 6 [facility] 20 MINUTES EMERGENCY 13467 EMERGENCY [place] II 6 6 [facility]OVERAGE JAM DEPARTMEN T VISIT CORPORATI HIGH/URGE NT SEVERITY EMERGENCY 30451 [facility] 6 6 HOSP [facility] DEPARTMEN T VISIT MODERATE SEVERITY CRITICAL [facility] ACCESS 6 6 [facility] PIERSON - 5 5 [place] OUTPATIEN D T REGIONAL HOS EMERGENCY 07181 [facility] [place] VISIT D HIGH REGIONAL SEVERITY& HOS THREAT [facility] SPRAGGS - 5 5 [place] OUTPATIEN D T REGIONAL HOS EMERGENCY 17173 [facility] 5 5 KASHMIR CAR DEPARTMEN EMERGENCY T VISIT SERVI MODERATE SEVERITY CRITICAL [facility] ACCESS 5 5 HOSP [facility] HOSPITAL EMERGENCY 81942 [facility] 5 5 HOSP INC DEPARTMEN T VISIT MODERATE SEVERITY EMERGENCY 18129 EMERGENCY YAZ 5 5 COVERAGE MARYELLEN DEPARTMEN T VISIT CORPORATI HIGH/URGE NT SEVERITY CRITICAL [facility] ACCESS 4 4 HOSP [facility] HOSPITAL EMERGENCY 61205 [facility] 4 4 HOSP INC DEPARTMEN T VISIT MODERATE SEVERITY EMERGENCY 48348 EMERGENCY TIMI COR 4 4 COVERAGE DEPARTMEN T VISIT CORPORATI HIGH/URGE NT SEVERITY EMERGENCY 78098 DAVID BARRIG[facility] 3 3 MEDICAL DEPARTMEN GROUP, T VISIT [facility] MODERATE SEVERITY HOSPITAL [facility] - 3 3 [place] OUTPATIEN D T REGIONAL HOS EMERGENCY 61972 [facility] 3 3 [place] DEPARTMEN D T VISIT REGIONAL HIGH/URGE HOS NT SEVERITY EMERGENCY 10323 DC GONG 3 3 EMERGENCY GRE DEPARTMEN SERVICES T VISIT HIGH/URGE NT SEVERITY EMERGENCY 32782 [facility] 3 3 [place] DEPARTMEN D T VISIT REGIONAL LOW/MODER HOS SEVERITY [facility] 3 [facility] HOS CRITICAL [facility] ACCESS 3 3 HOSP [facility] HOSPITAL EMERGENCY 49169 [facility] DEPT 3 3 HOSP INC VISIT HIGH SEVERITY& THREAT FUNCJ CRITICAL [facility] ACCESS 3 3 HOSP [facility] HOSPITAL EMERGENCY 60330 [facility] 3 3 HOSP INC DEPARTMEN T VISIT MODERATE SEVERITY EMERGENCY 66749 EMERGENCY TIMI COR 3 3 COVERAGE DEPARTMEN T VISIT CORPORATI HIGH/URGE NT SEVERITY OFFICE 30441 PRAKASH DUVALL II OUTPATIEN 3 3 O MEDICAL DENNISE T VISIT 15 ASSOCIATE MINUTES
--- OUTSIDE RECORDS SUMMARY | 2017-05-17 02:11 | External Medical Summary Rpt | CCD ---
Demographics Preferred Language Arabic Marital Status Unknown Presybeterian Affiliation Unknown Race Unknown Ethnic Group Unknown Author Author , ELSY CHIN Address Unknown Phone Immunization No patient found.
--- OUTSIDE RECORDS SUMMARY | 2017-05-17 02:11 | External Medical Summary Rpt | CCD ---
Demographics Preferred Language Faroese Marital Status Unknown Yazdanism Affiliation Unknown Race Unknown Ethnic Group Unknown Author Author , ELSY CHIN Address Unknown Phone Immunization No patient found.
--- OUTSIDE RECORDS SUMMARY | 2017-05-17 02:12 | External Medical Summary Rpt ---
[...] 37.0 - % Normal No Feb 22 traecy/100 80.0 informati 2016 6:48 leukocyte on in [...]
== END 2017-05-10 16:50 | disposition home or self-care (01) ==
LOC: ER 20:44 → 2ND 05-10 00:23
PROVIDERS: Emergency Medicine
DX: R55 Syncope and collapse (principal); I25.10 Atherosclerotic heart disease of native coronary artery without angina pectoris; I10 Essential (primary) hypertension; F20.9 Schizophrenia, unspecified; E78.5 Hyperlipidemia, unspecified; Z95.0 Presence of cardiac pacemaker; Z95.5 Presence of coronary angioplasty implant and graft; Z79.82 Long term (current) use of aspirin; Z79.899 Other long term (current) drug therapy
CPT/HCPCS: G0378